=== PATIENT | female | born 1935 | race Caucasian/White ===

== ENCOUNTER 2017-01-13 00:52 | Inpatient (IN) | payer MEDICARE, BC ==
[2017-01-13] MEDS ORDERED: Albuterol/Ipratropium 3.0-0.5 MG/3 ML Neb Soln NEB ONE (00:59)
[2017-01-13] MEDS ORDERED: Furosemide 40 MG/4 ML VIAL IVPUSH ONE (01:00)
[2017-01-13] MEDS ORDERED: methylPREDNISolone Sodium Succinate 125 MG/2 ML SDV IVPUSH ONE (01:13)
--- NOTE | 2017-01-13 01:41 | EDM.PDOC ---
ED HISTORY OF PRESENT ILLNESS - General Chief Complaint: Respiratory Problem Stated Complaint: shortness of breath Time Seen by Provider: 01/13/17 01:10 Source of Information: Reports: Patient, EMS History Limitations: Reports: Respiratory distress - History of Present Illness INITIAL COMMENTS - FREE TEXT/NARRATIVE: Patient presents to ER with complaints of shortness of breath. Contacted EMS with difficulty breathing. On oxygen at 15 lpm per [facility] mask on arrival. At 6 liters, patient's sat was 88%. Was in respiratory distress on arrival with tachypnea and retractions. Albuterol neb given per EMS enroute, ordered a DuoNeb here and Lasix 40 mg IV right after arrival and she is feeling somewhat better after those. Does have audible wheezing yet on my arrival but sats are 97% on 15 liters. She states she can breathe somewhat easier now, "don't feel like I'm going to anymore". Has been ill recently. Saw Dr. Bazan a week ago or so with same symptoms however not as severe. Was given a steroid shot and Cipro. Saw Leslie yesterday and was started on prednisone 40 mg daily and Ceftin. Around 10 o'clock tonight she started having more difficulty breathing and after an hour of resting, did not seem to be getting better. Symptom Onset Date: 01/13/17 Timing/Duration: Reports: Hour(s): Severity: severe Location, General: Reports: chest Worsens with: Reports: Movement Associated Symptoms (General): Reports: cough, shortness of breath, weakness. Denies: chest pain, diaphoresis, fever/chills, nausea/vomiting Treatments SANDBLAST OPERATOR: Reports: Other medication(s) Other Treatments SANDBLAST OPERATOR: ceftin, prednisone - Related Data Allergies/ADRs: Allergies Allergy/AdvReac Type Severity Reaction Status Date / Time No Known Allergies Allergy Verified 01/13/17 01:29 Home Meds: Home Meds Insulin Glarg,Human.Rec.Analog [LantUS Solostar] 40 units SQ DAILY 12/24/15 [ History] Simvastatin [Simvastatin] 1 tab PO BEDTIME 12/24/15 [History] Budesonide/Formoterol [Symbicort 160-4.5 MCG] 1 puff INH BID PRN 10/28/16 [ History] Calcium Carbonate [Calcium] 600 mg PO BID 12/22/16 [History] Magnesium 500 mg PO DAILY 10/28/16 [History] Methylcellulose [Citrucel] 500 mg PO BID 10/28/16 [History] Multivitamin [Daily Multiple Vitamin] 1 each PO DAILY 10/28/16 [History] metFORMIN HCl [Metformin HCl] 500 mg PO DAILY 10/28/16 [History] Cefuroxime [Ceftin] 500 mg PO BID 01/13/17 [History] Insulin Glarg,Human.Rec.Analog [Lantus] 22 units SUBCUT ASDIRECTED 01/13/17 [ History] Lisinopril 5 mg PO DAILY 01/13/17 [History] Nebivolol [Bystolic] 10 mg PO DAILY 01/13/17 [History] predniSONE [Prednisone] 40 mg PO ASDIRECTED 01/13/17 [History] Past Medical History Cardiovascular History: Reports: CAD, High cholesterol, Hypertension Respiratory History: Reports: Asthma Endocrine/Metabolic History: Reports: Diabetes, type II Social & Family History - Tobacco Use Smoking Status *Q: Never Smoker ED ROS GENERAL - Review of Systems Review Of Systems: See Below Constitutional: Reports: weakness, fatigue. Denies: fever, chills HEENT: Denies: Ear discharge, Ear pain, Rhinitis, Sinus problem, Throat pain Respiratory: Reports: shortness of breath, wheezing, cough Cardiovascular: Denies: Chest pain, Edema, Lightheadedness Endocrine: Denies: fatigue GI/Abdominal: Denies: Abdominal pain, Constipation, Diarrhea, Nausea, Vomiting : Reports: no symptoms Musculoskeletal: Reports: no symptoms Skin: Reports: pallor Neurological: Reports: no symptoms Psychiatric: Reports: No symptoms ED EXAM, GENERAL - Physical Exam Exam: See Below Exam Limited By: Respiratory distress General Appearance: alert, WD/WN, moderate distress Ears: normal external exam, normal TMs Nose: normal inspection, clear rhinorrhea Throat/Mouth: Normal inspection, Normal oropharynx Head: normocephalic Neck: normal inspection, supple, non-tender Respiratory/Chest: respiratory distress, decreased breath sounds, wheezing Cardiovascular: normal peripheral pulses, no edema, tachycardia GI/Abdominal: normal bowel sounds, soft, non tender Extremities: normal inspection Neurological: alert, oriented Skin Exam: Warm, Dry Course - Vital Signs Last Recorded V/S: Last Vital Signs Temp 97.7 F 01/13/17 01:00 Pulse 93 01/13/17 01:10 Resp 32 H 01/13/17 01:10 BP 151/106 H 01/13/17 01:00 Pulse Ox 95 01/13/17 01:10 - Orders/Labs/Meds Orders: Active Orders 24 hr Category Date Time Status Patient Status [ADT] Routine ADT 01/13/17 02:30 Active Blood Glucose Check, Bedside [RC] WITHMEALSANDBED Care 01/13/17 02:30 Active Cardiac Monitoring [RC] . DIRECTED Care 01/13/17 01:48 Active Cardiac Monitoring [RC] CONTINUOUS Care 01/13/17 02:30 Active Height and Weight [RC] DAILY Care 01/13/17 02:30 Active Intake and Output [RC] QSHIFT Care 01/13/17 02:30 Active Oxygen Therapy Adult [Oxygen Therapy, ED] [RC] Care 01/13/17 01:01 Active ASDIRECTED Oxygen Therapy [RC] PRN Care 01/13/17 02:30 Active RT Aerosol Therapy [RC] ASDIRECTED Care 01/13/17 00:59 Active RT Aerosol Therapy [RC] ASDIRECTED Care 01/13/17 02:30 Active Up With Assistance [RC] ASDIRECTED Care 01/13/17 02:30 Active VTE/DVT Education [RC] PER UNIT ROUTINE Care 01/13/17 02:30 Active Vital Signs [RC] Q4H Care 01/13/17 02:30 Active Respiratory Care Assess and Treatment [CONS] Routine Cons 01/13/17 02:30 Active 2 Gram Sodium Diet [DIET] Diet 01/13/17 Breakfast Active Consistent Carbohydrate Diet [DIET] Diet 01/13/17 Breakfast Active Ang Chest [CT] Stat Exams 01/13/17 01:42 Taken CXR [Chest 2V] [CR] Stat Exams 01/13/17 01:13 Taken CREATINE KINASE,CK [CHEM] AM Lab 01/13/17 05:11 Ordered LACTATE DEHYDROGENASE,LDH [CHEM] Stat Lab 01/13/17 02:30 Ordered MAGNESIUM [CHEM] AM Lab 01/13/17 05:11 Ordered TROPONIN I [CHEM] AM Lab 01/13/17 05:11 Ordered Acetaminophen [Tylenol] Med 01/13/17 02:30 Ordered 650 mg PO Q4H PRN Albuterol/Ipratropium [DuoNeb 3.0-0.5 MG/3 ML] Med 01/13/17 02:30 Ordered 3 ml NEB Q4H PRN Enoxaparin [Lovenox] Med 01/13/17 02:30 Ordered 40 mg SUBCUT Q24H Insulin Aspart [NovoLOG] Med 01/13/17 02:30 Once 15 unit SUBCUT ONETIME ONE Insulin Aspart [NovoLOG] Med 01/13/17 08:00 Ordered See Protocol SUBCUT WITHMEALSANDBED Levofloxacin/Dextrose 5%-Water [Levaquin in D5W 500 MG/ Med 01/13/17 02:30 Ordered 100 ML] 500 mg Premix Bag 1 bag IV Q24H Ondansetron [Zofran ODT] Med 01/13/17 02:30 Ordered 4 mg PO Q4H PRN Ondansetron [Zofran] Med 01/13/17 02:30 Ordered 4 mg IV Q4H PRN Sodium Chloride 0.9% [Saline Flush] Med 01/13/17 02:30 Ordered 10 ml FLUSH ASDIRECTED PRN Temazepam [Restoril] Med 01/13/17 02:30 Ordered 15 mg PO BEDTIME PRN methylPREDNISolone Sod Succ [Solu-MEDROL] Med 01/13/17 02:30 Ordered 62.5 mg IVPUSH Q12H Saline Lock Insert [OM.PC] Routine Oth 01/13/17 02:30 Ordered EKG 12 Lead [EK] AM Ther 01/13/17 05:11 Ordered Medication Orders Acetaminophen (Tylenol) 650 mg PO Q4H PRN PRN Reason: Pain (Mild 1-3)/fever Albuterol/Ipratropium (Duoneb 3.0-0.5 Mg/3 Ml) 3 ml NEB Q4H PRN PRN Reason: Shortness Of Breath/wheezing Enoxaparin Sodium (Lovenox) 40 mg SUBCUT Q24H [facility] Furosemide (Lasix) 40 mg IVPUSH Q24H [facility] Levofloxacin/Dextrose 500 mg/ (Premix) 100 mls @ 100 mls/hr IV Q24H [facility] Insulin Aspart (Novolog) 0 unit SUBCUT WITHMEALSANDBED [facility] PRN Reason: Protocol Insulin Aspart (Novolog) 15 unit SUBCUT ONETIME ONE Stop: 01/13/17 02:31 Lisinopril (Prinivil) 5 mg PO DAILY [facility] Methylprednisolone Sodium Succinate (Solu-Medrol) 62.5 mg IVPUSH Q12H [facility] Multivitamins/Minerals/Vitamin C (Tab-A-Jimi) tab PO DAILY [facility] Non-Formulary Medication (Budesonide/Formoterol) 1 puff INH BID PRN PRN Reason: Shortness of Breath Non-Formulary Medication (Insulin Glarg,Human.Rec.Analog [Lantus Solostar]) 40 units SQ DAILY [facility] Non-Formulary Medication (Insulin Glarg,Human.Rec.Analog) 22 units SUBCUT ASDIRECTED [facility] Non-Formulary Medication (Magnesium [Magnesium]) 500 mg PO DAILY [facility] Non-Formulary Medication (Nebivolol [Bystolic]) 10 mg PO DAILY [facility] Non-Formulary Medication (Simvastatin [Simvastatin]) 1 tab PO BEDTIME [facility] Ondansetron HCl (Zofran Odt) 4 mg PO Q4H PRN PRN Reason: nausea, able to take PO Ondansetron HCl (Zofran) 4 mg IV Q4H PRN PRN Reason: Nausea/Vomiting Sodium Chloride (Saline Flush) 10 ml FLUSH ASDIRECTED PRN PRN Reason: Keep Vein Open Temazepam (Restoril) 15 mg PO BEDTIME PRN PRN Reason: Sleep Labs: Laboratory Tests 01/13/17 01/13/17 01/13/17 Range/Units 01:15 01:19 01:19 WBC 8.9 (5.0-10.0) 10^3/uL RBC 5.00 (4.00-5.50) 10^6/uL Hgb 13.7 (12.0-16.0) g/dL Hct 42.0 (37.0-47.0) % MCV 84.0 (82.0-94.0) fL MCH 27.4 (27.0-32.0) pg MCHC 32.6 L (33.0-38.0) g/dL RDW Coeff of Carter 15.9 H (11.0-15.0) % Plt Count 247 (150-400) 10^3/uL Neut % (Auto) 82.3 (35-85) % Lymph % (Auto) 15.0 (10-55) % Cannon % (Auto) 2.6 (0-16) % Eos % (Auto) 0 (0-5) % Baso % (Auto) 0.1 (0-3) % Neut # 7.28 H (1.80-7.00) 10^3/uL Lymph # 1.33 (1.00-4.80) 10^3/uL Cannon # 0.23 (0.00-0.80) 10^3/uL Eos # 0.00 (0.00-0.45) 10^3/uL Baso # 0.01 10^3/uL D-Dimer, Quantitative 1.22 H (0.00-0.50) Sodium 140 (136-145) mEq/L Potassium 4.8 (3.5-5.0) mEq/L Chloride 103 (98-106) mEq/L Carbon Dioxide 25 (21-32) mmol/L BUN 31 H (7-18) mg/dL Creatinine 1.2 H (0.6-1.0) mg/dL Est Cr Clr Drug Dosing 29.08 mL/min Estimated GFR (MDRD) 43 L (>=60) mL/min Glucose 464 H* D (75-99) mg/dL Calcium 9.3 (8.4-10.1) mg/dL Total Bilirubin 1.0 (0.0-1.0) mg/dL AST 22 (15-37) U/L ALT 25 (12-78) U/L Alkaline Phosphatase 82 (46-116) U/L Lactate Dehydrogenase 225 H (100-190) U/L Creatine Kinase 110 (21-215) U/L Troponin I 0.358 H (0.00-0.06) ng/mL C-Reactive Protein < 0.2 L (0.2-0.8) mg/dL Xsm-L-Lwbebphcgky Pept (0-1000) pg/nL Total Protein 7.7 (6.4-8.2) g/dL Albumin 3.4 (3.4-5.0) g/dL 01/13/17 Range/Units 01:20 WBC (5.0-10.0) 10^3/uL RBC (4.00-5.50) 10^6/uL Hgb (12.0-16.0) g/dL Hct (37.0-47.0) % MCV (82.0-94.0) fL MCH (27.0-32.0) pg MCHC (33.0-38.0) g/dL RDW Coeff of Carter (11.0-15.0) % Plt Count (150-400) 10^3/uL Neut % (Auto) (35-85) % Lymph % (Auto) (10-55) % Cannon % (Auto) (0-16) % Eos % (Auto) (0-5) % Baso % (Auto) (0-3) % Neut # (1.80-7.00) 10^3/uL Lymph # (1.00-4.80) 10^3/uL Cannon # (0.00-0.80) 10^3/uL Eos # (0.00-0.45) 10^3/uL Baso # 10^3/uL D-Dimer, Quantitative (0.00-0.50) Sodium (136-145) mEq/L Potassium (3.5-5.0) mEq/L Chloride (98-106) mEq/L Carbon Dioxide (21-32) mmol/L BUN (7-18) mg/dL Creatinine (0.6-1.0) mg/dL Est Cr Clr Drug Dosing mL/min Estimated GFR (MDRD) (>=60) mL/min Glucose (75-99) mg/dL Calcium (8.4-10.1) mg/dL Total Bilirubin (0.0-1.0) mg/dL AST (15-37) U/L ALT (12-78) U/L Alkaline Phosphatase (46-116) U/L Lactate Dehydrogenase (100-190) U/L Creatine Kinase (21-215) U/L Troponin I (0.00-0.06) ng/mL C-Reactive Protein (0.2-0.8) mg/dL Iog-A-Cxtttxpszku Pept 3915 H (0-1000) pg/nL Total Protein (6.4-8.2) g/dL Albumin (3.4-5.0) g/dL Meds: Medications Generic Name Dose Route Start Last Admin Trade Name Freq PRN Reason Stop Dose Admin Acetaminophen 650 mg 01/13/17 02:30 Tylenol PO Q4H PRN Pain (Mild 1-3)/fever Albuterol/Ipratropium 3 ml 01/13/17 02:30 Duoneb 3.0-0.5 Mg/3 Ml NEB Q4H PRN Shortness Of Breath/wheezing Enoxaparin Sodium 40 mg 01/13/17 02:30 Lovenox SUBCUT Q24H [facility] Furosemide 40 mg 01/13/17 08:00 Lasix IVPUSH Q24H [facility] Levofloxacin/Dextrose 500 mg/ 100 mls @ 100 mls/hr 01/13/17 02:30 Premix IV Q24H [facility] Insulin Aspart 0 unit 01/13/17 08:00 Novolog SUBCUT WITHMEALSANDBED [facility] Protocol Insulin Aspart 15 unit 01/13/17 02:30 Novolog SUBCUT 01/13/17 02:31 ONETIME ONE Lisinopril 5 mg 01/13/17 08:00 Prinivil PO DAILY [facility] Methylprednisolone Sodium Succinate 62.5 mg 01/13/17 02:30 Solu-Medrol IVPUSH Q12H [facility] Multivitamins/Minerals/Vitamin C tab 01/13/17 08:00 Tab-A-Jimi PO DAILY [facility] Non-Formulary Medication 1 puff 01/13/17 02:30 Budesonide/Formoterol INH BID PRN Shortness of Breath Non-Formulary Medication 40 units 01/13/17 08:00 Insulin Glarg,Human.Rec.Analog [Lantus Solostar] SQ DAILY [facility] Non-Formulary Medication 22 units 01/13/17 02:30 Insulin Glarg,Human.Rec.Analog SUBCUT ASDIRECTED [facility] Non-Formulary Medication 500 mg 01/13/17 08:00 Magnesium [Magnesium] PO DAILY [facility] Non-Formulary Medication 10 mg 01/13/17 08:00 Nebivolol [Bystolic] PO DAILY [facility] Non-Formulary Medication 1 tab 01/13/17 20:00 Simvastatin [Simvastatin] PO BEDTIME [facility] Ondansetron HCl 4 mg 01/13/17 02:30 Zofran Odt PO Q4H PRN nausea, able to take PO Ondansetron HCl 4 mg 01/13/17 02:30 Zofran IV Q4H PRN Nausea/Vomiting Sodium Chloride 10 ml 01/13/17 02:30 Saline Flush FLUSH ASDIRECTED PRN Keep Vein Open Temazepam 15 mg 01/13/17 02:30 Restoril PO BEDTIME PRN Sleep Discontinued Medications Generic Name Dose Route Start Last Admin Trade Name Freq PRN Reason Stop Dose Admin Albuterol/Ipratropium 3 ml 01/13/17 00:59 01/13/17 01:06 Duoneb 3.0-0.5 Mg/3 Ml NEB 01/13/17 01:00 3 ml ONETIME ONE Administration Furosemide 40 mg 01/13/17 01:00 01/13/17 01:07 Lasix IVPUSH 01/13/17 01:01 40 mg Q24H ONE Administration Iopamidol 100 ml 01/13/17 01:50 01/13/17 02:14 Isovue-370 (76%) IVPUSH 01/13/17 01:51 100 ml ONETIME ONE Administration Methylprednisolone Sodium Succinate 125 mg 01/13/17 01:13 01/13/17 01:19 Solu-Medrol IVPUSH 01/13/17 01:14 125 mg Q24H ONE Administration - Re-Assessments/Exams Free Text/Narrative Re-Assessment/Exam: 01/13/17 02:30 Patient has had good recovery. Breathing much easier. Noted 1200 ml of urine in catheter bag. CT completed due to shortness of breath and elevated d-dimer. Patient's oxygen sats 95% on 3 liters. Will keep monitoring. Admit to Dr. Bazan. 01/13/17 02:40 Departure - Departure Time of Disposition: 02:32 Disposition: Admitted As Inpatient 66 Condition: fair Clinical Impression: Respiratory distress Congestive heart failure Qualifiers: Congestive heart failure chronicity: acute - Problem List & Annotations (1) Comfort measures only status SNOMED Code(s): 41588509415798 Code(s): Z51.5 - ENCOUNTER FOR PALLIATIVE CARE Status: Acute Priority: High Current Visit: Yes (2) Congestive heart failure SNOMED Code(s): 24387194 Code(s): I50.9 - HEART FAILURE, UNSPECIFIED Status: Acute Priority: High Current Visit: Yes Qualifiers: Congestive heart failure chronicity: acute (3) Respiratory distress SNOMED Code(s): 767987675 Code(s): R06.00 - DYSPNEA, UNSPECIFIED Status: Acute Priority: High Current Visit: Yes - Problem List Review Problem List Initiated/Reviewed/Updated: Yes - My Orders Last 24 Hours: My Active Orders 01/13/17 00:59 RT Aerosol Therapy [RC] ASDIRECTED 01/13/17 01:01 Oxygen Therapy Adult [Oxygen Therapy, ED] [RC] ASDIRECTED 01/13/17 01:13 CXR [Chest 2V] [CR] Stat 01/13/17 01:42 Ang Chest [CT] Stat 01/13/17 01:48 Cardiac Monitoring [RC] . DIRECTED 01/13/17 02:30 Patient Status [ADT] Routine Blood Glucose Check, Bedside [RC] WITHMEALSANDBED Cardiac Monitoring [RC] CONTINUOUS Height and Weight [RC] DAILY Intake and Output [RC] QSHIFT Oxygen Therapy [RC] PRN RT Aerosol Therapy [RC] ASDIRECTED Up With Assistance [RC] ASDIRECTED VTE/DVT Education [RC] PER UNIT ROUTINE Vital Signs [RC] Q4H Respiratory Care Assess and Treatment [CONS] Routine LACTATE DEHYDROGENASE,LDH [CHEM] Stat Acetaminophen [Tylenol] 650 mg PO Q4H PRN Albuterol/Ipratropium [DuoNeb 3.0-0.5 MG/3 ML] 3 ml NEB Q4H PRN Enoxaparin [Lovenox] 40 mg SUBCUT Q24H Insulin Aspart [NovoLOG] 15 unit SUBCUT ONETIME ONE Levofloxacin/Dextrose 5%-Water [Levaquin in D5W 500 MG/100 ML] 500 mg Premix Bag 1 bag IV Q24H Ondansetron [Zofran ODT] 4 mg PO Q4H PRN Ondansetron [Zofran] 4 mg IV Q4H PRN Sodium Chloride 0.9% [Saline Flush] 10 ml FLUSH ASDIRECTED PRN Temazepam [Restoril] 15 mg PO BEDTIME PRN methylPREDNISolone Sod Succ [Solu-MEDROL] 62.5 mg IVPUSH Q12H Saline Lock Insert [OM.PC] Routine 01/13/17 05:11 CREATINE KINASE,CK [CHEM] AM MAGNESIUM [CHEM] AM TROPONIN I [CHEM] AM EKG 12 Lead [EK] AM 01/13/17 08:00 Insulin Aspart [NovoLOG] See Protocol SUBCUT WITHMEALSANDBED 01/13/17 Breakfast 2 Gram Sodium Diet [DIET] Consistent Carbohydrate Diet [DIET] - Assessment/Plan Admission H&P: Please use this note as an admission H&P Last 24 Hours: My Active Orders 01/13/17 00:59 RT Aerosol Therapy [RC] ASDIRECTED 01/13/17 01:01 Oxygen Therapy Adult [Oxygen Therapy, ED] [RC] ASDIRECTED 01/13/17 01:13 CXR [Chest 2V] [CR] Stat 01/13/17 01:42 Ang Chest [CT] Stat 01/13/17 01:48 Cardiac Monitoring [RC] . DIRECTED 01/13/17 02:30 Patient Status [ADT] Routine Blood Glucose Check, Bedside [RC] WITHMEALSANDBED Cardiac Monitoring [RC] CONTINUOUS Height and Weight [RC] DAILY Intake and Output [RC] QSHIFT Oxygen Therapy [RC] PRN RT Aerosol Therapy [RC] ASDIRECTED Up With Assistance [RC] ASDIRECTED VTE/DVT Education [RC] PER UNIT ROUTINE Vital Signs [RC] Q4H Respiratory Care Assess and Treatment [CONS] Routine LACTATE DEHYDROGENASE,LDH [CHEM] Stat Acetaminophen [Tylenol] 650 mg PO Q4H PRN Albuterol/Ipratropium [DuoNeb 3.0-0.5 MG/3 ML] 3 ml NEB Q4H PRN Enoxaparin [Lovenox] 40 mg SUBCUT Q24H Insulin Aspart [NovoLOG] 15 unit SUBCUT ONETIME ONE Levofloxacin/Dextrose 5%-Water [Levaquin in D5W 500 MG/100 ML] 500 mg Premix Bag 1 bag IV Q24H Ondansetron [Zofran ODT] 4 mg PO Q4H PRN Ondansetron [Zofran] 4 mg IV Q4H PRN Sodium Chloride 0.9% [Saline Flush] 10 ml FLUSH ASDIRECTED PRN Temazepam [Restoril] 15 mg PO BEDTIME PRN methylPREDNISolone Sod Succ [Solu-MEDROL] 62.5 mg IVPUSH Q12H Saline Lock Insert [OM.PC] Routine 01/13/17 05:11 CREATINE KINASE,CK [CHEM] AM MAGNESIUM [CHEM] AM TROPONIN I [CHEM] AM EKG 12 Lead [EK] AM 01/13/17 08:00 Insulin Aspart [NovoLOG] See Protocol SUBCUT WITHMEALSANDBED 01/13/17 Breakfast 2 Gram Sodium Diet [DIET] Consistent Carbohydrate Diet [DIET] Assessment:: CHF- acute, new onset Respiratory Distress Comfort Measures Plan: Admit to Dr. Bazan. Will continue with IV Lasix. Nebs. Levaquin. Obtain echo. Reevaluate serial cardiac enzymes. Dr. Bazan will follow during stay. Dr. Bazan informed of admission.
[2017-01-13 01:43] LABS: CHLORIDE,CL 103 mEq/L (98-106); SODIUM,NA 140 mEq/L (136-145)
[2017-01-13] MEDS ORDERED: Iopamidol 755 Mg/ML 100 ML Bottle IVPUSH ONE (01:50)
[2017-01-13] MEDS ORDERED: Acetaminophen 325 MG Tab PO PRN (02:30)
[2017-01-13] MEDS ORDERED: Non-Formulary Medication 1 Each (Budesonide/Formoterol 1 PUFF) INH PRN (02:30)
[2017-01-13] MEDS ORDERED: Temazepam 15 MG Cap PO PRN (02:30)
[2017-01-13] MEDS ORDERED: INSULIN GLARG HUMAN REC ANALOG SUBCUT SCH (02:30)
[2017-01-13] MEDS ORDERED: methylPREDNISolone Sodium Succinate 125 MG/2 ML SDV IVPUSH SCH (02:30)
[2017-01-13] MEDS ORDERED: Sodium Chloride 0.9% 10 ML Syringe FLUSH PRN (02:30)
[2017-01-13] MEDS ORDERED: Ondansetron 4 MG Tab.DIS PO PRN (02:30)
[2017-01-13] MEDS ORDERED: Levofloxacin/Dextrose 5%-Water 500 MG in Premix Bag 1 BAG IV SCH (02:30)
[2017-01-13] MEDS ORDERED: Enoxaparin 40 MG/0.4 ML Syringe SUBCUT SCH (02:30)
[2017-01-13] MEDS ORDERED: Ondansetron 4 MG/2 ML SDV IV PRN (02:30)
[2017-01-13] MEDS ORDERED: Insulin Aspart 100 Units/ML 3 ML Pen SUBCUT ONE (02:30)
[2017-01-13] MEDS ORDERED: Albuterol/Ipratropium 3.0-0.5 MG/3 ML Neb Soln NEB PRN (02:30)
[2017-01-13] MEDS ORDERED: Enoxaparin 30 MG/0.3 ML Syringe SUBCUT SCH (03:00)
[2017-01-13] MEDS ORDERED: Insulin Detemir 100 Units/ML 3 ML Pen SUBCUT SCH ×3 (03:00→20:00)
[2017-01-13 07:40] VITALS: BP 129/63
[2017-01-13] MEDS ORDERED: Lisinopril 10 MG Tab PO SCH (08:00)
[2017-01-13] MEDS ORDERED: Insulin Aspart 100 Units/ML 3 ML Pen SUBCUT SCH (08:00)
[2017-01-13] MEDS ORDERED: NEBIVOLOL 10 MG PO SCH (08:00)
[2017-01-13] MEDS ORDERED: Multivitamin Tab PO SCH (08:00)
[2017-01-13] MEDS ORDERED: Furosemide 40 MG/4 ML VIAL IVPUSH SCH (08:00)
[2017-01-13] MEDS ORDERED: Formoterol/Mometasone 200-5 MCG 8.8 GM Inhaler IH SCH ×2 (09:00)
[2017-01-13] MEDS ORDERED: Albuterol/Ipratropium 3.0-0.5 MG/3 ML Neb Soln NEB SCH (09:00)
[2017-01-13] MEDS ORDERED: Enoxaparin 80 MG/0.8 ML Syringe SUBCUT ONE (09:19)
[2017-01-13] MEDS ORDERED: SIMVASTATIN PO SCH (20:00)
[2017-01-13] MEDS ORDERED: Simvastatin 40 MG Tab PO SCH (20:00)
--- NOTE | 2017-01-14 07:41 | PCM.DCSUM1 ---
Discharge Summary - Hospital Course Free Text/Narrative:: Patient presented to the ER with complaints of severe shortness of breath. Was in considerable respiratory distress on EMS arrival to her home as well as to our ER. She had been treated recently for bronchitis. Had a course of Cipro and a shot of Depo Medrol a week ago by Dr. Bazan. Presented back to [facility] on Tuesday with ongoing symptoms. Was switched to Ceftin and oral prednisone. On arrival to the ED, she had been experiencing increasing shortness of breath for 3 hours. Lungs sounds very moist and wheezy. Was given IV Solu Medrol, DuoNeb and IV Lasix. She did slowly improve over 30 minutes. Diuresed 1200 ml within 30 minutes after catheter placed. Much improvement in her breathing. She did have an elevated ProBNP of 3915. D-Dimer was elevated at 1.22. Troponin indeterminate at 0.358. Chest xray showed venous congestion. EKG shows possible inferior lateral ischemia. CT scan to rule out PE was negative however did show pulmonary edema and pleural effusions. She had recently seen Dr. Archuleta in [place]. Had testing done there as well as stress test last October that didn't show acute evidence of heart concerns. He felt her ongoing shortness of breath could be related to pulmonary concerns so set her up next week for further pulmonary function testing. She was also taken off her Atenolol and started on Bystolic and Lisinopril. - Discharge Data Discharge Date: 01/13/17 Discharge Disposition: DC/Tfer to Acute Hospital 02 Condition: Stable - Discharge Diagnosis/Problem(s) (1) Comfort measures only status SNOMED Code(s): 69522807213971 ICD Code: Z51.5 - ENCOUNTER FOR PALLIATIVE CARE Status: Acute Priority: High (2) Congestive heart failure SNOMED Code(s): 68123640 ICD Code: I50.9 - HEART FAILURE, UNSPECIFIED Status: Acute Priority: High Qualifiers: Congestive heart failure chronicity: acute (3) Respiratory distress SNOMED Code(s): 383736259 ICD Code: R06.00 - DYSPNEA, UNSPECIFIED Status: Acute Priority: High (4) Acute [place] SNOMED Code(s): 58897529 ICD Code: I21.3 - ST ELEVATION (STEMI) MYOCARDIAL INFARCTION OF [facility] SITE Status: Acute Priority: High Qualifiers: Myocardial infarction ST status: non-ST elevation myocardial infarction Qualified Code(s): I21.4 - Non-ST elevation (NSTEMI) myocardial infarction - Patient Summary/Data Complications: elevated troponin Hospital Course: Patient did improve significantly with IV Lasix and is stable upon discharge. She did show acute changes of her troponin after 4 hours with repeat testing. Troponin now 7.44. EKG remains same. Did contact Dr. Dave at [facility] after consulting with DR. Bazan who felt she will need an angiogram. He did recommend therapeutic dose of Lovenox so additional Lovenox given this am. See MAR. Dr. Dave did agree to accept the patient in transfer for further cardiology work up. Patient agrees with plan. - Patient Instructions Other/Special Instructions: Transfer to Dr. Dave per ALS to [facility]. Keep NPO - Discharge Plan Home Medications: Home Meds Insulin Glarg,Human.Rec.Analog [LantUS Solostar] 40 units SQ DAILY 12/24/15 [ History] Simvastatin [Simvastatin] 1 tab PO BEDTIME 12/24/15 [History] Budesonide/Formoterol [Symbicort 160-4.5 MCG] 1 puff INH BID PRN 10/28/16 [ History] Calcium Carbonate [Calcium] 600 mg PO BID 10/28/16 [History] Magnesium 500 mg PO DAILY 10/28/16 [History] Methylcellulose [Citrucel] 500 mg PO BID 10/28/16 [History] Multivitamin [Daily Multiple Vitamin] 1 each PO DAILY 10/28/16 [History] metFORMIN HCl [Metformin HCl] 500 mg PO DAILY 10/28/16 [History] Cefuroxime [Ceftin] 500 mg PO BID 01/13/17 [History] Insulin Glarg,Human.Rec.Analog [Lantus] 22 units SUBCUT ASDIRECTED 01/13/17 [ History] Lisinopril 5 mg PO DAILY 01/13/17 [History] Nebivolol [Bystolic] 10 mg PO DAILY 01/13/17 [History] predniSONE [Prednisone] 40 mg PO ASDIRECTED 01/13/17 [History] Forms: ED Department Discharge Referrals: Lee Bazan MD [Primary Care Provider] - - Discharge Summary/Plan Comment DC Time >30 min.: Yes Discharge Summary/Plan Comment: Transfer to Dr. Dave at [facility], transfer per ALS. - General Info Date of Service: 01/13/17 Admission Dx/Problem (Free Text: CHF Pulmonary Edema Functional Status: Reports: pain controlled, tolerating diet. Denies: ambulating - Review of Systems General: Reports: weakness, fatigue. Denies: fever HEENT: Denies: headaches, sinus congestion, sore throat, rhinitis Pulmonary: Reports: shortness of breath. Denies: cough, wheezing Cardiovascular: Denies: chest pain, edema, lightheadedness Gastrointestinal: Denies: Abdominal pain, Constipation, Diarrhea, Nausea, Vomiting Genitourinary: Reports: no symptoms Musculoskeletal: Reports: no symptoms Skin: Reports: no symptoms Neurological: Reports: no symptoms Psychiatric: Reports: no symptoms - Patient Data Vitals - Most Recent: Last Vital Signs Temp 97.3 F 01/13/17 07:42 Pulse 66 01/13/17 07:42 Resp 18 01/13/17 07:42 BP 129/63 01/13/17 07:42 Pulse Ox 93 L 01/13/17 07:42 Weight - Most Recent: 172 lb 12.8 oz Lab Results - Last 24 hrs: Laboratory Results - last 24 hr 01/13/17 Range/Units 07:47 Magnesium 1.9 (1.8-2.4) mg/dL Lactate Dehydrogenase 277 H (100-190) U/L Creatine Kinase 326 H (21-215) U/L Troponin I 7.442 H* (0.00-0.06) ng/mL Med Orders - Current: Current Medications Discontinued Medications Acetaminophen (Tylenol) 650 mg PO Q4H PRN PRN Reason: Pain (Mild 1-3)/fever Albuterol/Ipratropium (Duoneb 3.0-0.5 Mg/3 Ml) 3 ml NEB ONETIME ONE Stop: 01/13/17 01:00 Last Admin: 01/13/17 01:06 Dose: 3 ml Albuterol/Ipratropium (Duoneb 3.0-0.5 Mg/3 Ml) 3 ml NEB Q4H PRN PRN Reason: Shortness Of Breath/wheezing Albuterol/Ipratropium (Duoneb 3.0-0.5 Mg/3 Ml) 3 ml NEB QIDRT [facility] Last Admin: 01/13/17 09:14 Dose: 3 ml Enoxaparin Sodium (Lovenox) 30 mg SUBCUT Q24H [facility] Last Admin: 01/13/17 03:03 Dose: 30 mg Enoxaparin Sodium (Lovenox) 30 mg SUBCUT Q24H [facility] Enoxaparin Sodium (Lovenox) 80 mg SUBCUT NOW ONE Stop: 01/13/17 09:20 Last Admin: 01/13/17 09:24 Dose: 80 mg Furosemide (Lasix) 40 mg IVPUSH Q24H ONE Stop: 01/13/17 01:01 Last Admin: 01/13/17 01:07 Dose: 40 mg Furosemide (Lasix) 40 mg IVPUSH Q24H [facility] Last Admin: 01/13/17 07:35 Dose: 40 mg Levofloxacin/Dextrose 500 mg/ (Premix) 100 mls @ 100 mls/hr IV Q24H [facility] Last Admin: 01/13/17 03:04 Dose: 100 mls/hr Levofloxacin/Dextrose 250 mg/ (Premix) 50 mls @ 50 mls/hr IV Q24H [facility] Insulin Aspart (Novolog) 0 unit SUBCUT WITHMEALSANDBED [facility] PRN Reason: Protocol Last Admin: 01/13/17 07:39 Dose: 12 unit Insulin Aspart (Novolog) 15 unit SUBCUT ONETIME ONE Stop: 01/13/17 02:31 Last Admin: 01/13/17 03:00 Dose: 15 units Insulin Detemir (Levemir) 40 unit SUBCUT DAILY [facility] Last Admin: 01/13/17 07:38 Dose: 40 unit Insulin Detemir (Levemir) 22 unit SUBCUT BEDTIME [facility] Last Admin: 01/13/17 02:56 Dose: Not Given Insulin Detemir (Levemir) 22 unit SUBCUT BEDTIME [facility] Iopamidol (Isovue-370 (76%)) 100 ml IVPUSH ONETIME ONE Stop: 01/13/17 01:51 Last Admin: 01/13/17 02:14 Dose: 100 ml Lisinopril (Prinivil) 5 mg PO DAILY [facility] Last Admin: 01/13/17 07:37 Dose: 5 mg Magnesium Oxide (Magnesium Oxide) 500 mg PO DAILY [facility] Last Admin: 01/13/17 07:37 Dose: 500 mg Methylprednisolone Sodium Succinate (Solu-Medrol) 125 mg IVPUSH Q24H ONE Stop: 01/13/17 01:14 Last Admin: 01/13/17 01:19 Dose: 125 mg Methylprednisolone Sodium Succinate (Solu-Medrol) 62.5 mg IVPUSH Q12H [facility] Last Admin: 01/13/17 04:44 Dose: Not Given Mometasone Furoate/Formoterol Fumar (Dulera 200-5 Mcg) 2 puff IH BIDRT [facility] Last Admin: 01/13/17 09:15 Dose: 2 puff Multivitamins/Minerals/Vitamin C (Tab-A-Jimi) 1 tab PO DAILY [facility] Last Admin: 01/13/17 07:37 Dose: 1 tab Non-Formulary Medication (Nebivolol [Bystolic]) 10 mg PO DAILY [facility] Non-Formulary Medication (Simvastatin [Simvastatin]) 1 tab PO BEDTIME [facility] Ondansetron HCl (Zofran Odt) 4 mg PO Q4H PRN PRN Reason: nausea, able to take PO Ondansetron HCl (Zofran) 4 mg IV Q4H PRN PRN Reason: Nausea/Vomiting Simvastatin (Zocor) 80 mg PO BEDTIME [facility] Sodium Chloride (Saline Flush) 10 ml FLUSH ASDIRECTED PRN PRN Reason: Keep Vein Open Temazepam (Restoril) 15 mg PO BEDTIME PRN PRN Reason: Sleep - Exam Quality Assessment: Reports: supplemental oxygen General: Reports: alert, oriented HEENT: Reports: Mucous membr. moist/pink Neck: Reports: supple Lungs: Reports: Decreased breath sounds, Wheezing Cardiovascular: Reports: regular rate, regular rhythm Abdomen: Reports: bowel sounds present, soft, no tenderness Extremities: Reports: no edema Neurological: Reports: no new focal deficit *Q Meaningful Use (DIS) - VTE *Q VTE Criteria *Q: - Stroke *Q Stroke Criteria *Q: - AMI *Q AMI Criteria *Q:
[2017-01-14] MEDS ORDERED: Enoxaparin 30 MG/0.3 ML Syringe SUBCUT SCH (08:00)
[2017-01-14] MEDS ORDERED: Levofloxacin/Dextrose 5%-Water 250 MG in Premix Bag 1 BAG IV SCH (08:00)
== END 2017-01-13 09:30 | DRG 282 ==
LOC: CC.ED 00:52 → CC.MS 01:48 → UNDOADMIN 02:21 → CC.MS 02:21 → UNDOADMIN 02:30 → CC.MS 02:30 → UNDODISIN 09:30
PROVIDERS: ADMIT Physician Assistant Medical; ATTEND General Practice
DX: I21.4 Non-ST elevation (NSTEMI) myocardial infarction (principal); I50.9 Heart failure, unspecified; I11.0 Hypertensive heart disease with heart failure; E11.9 Type 2 diabetes mellitus without complications; Z51.5 Encounter for palliative care; Z66 Do not resuscitate; R06.00 Dyspnea, unspecified; Z79.4 Long term (current) use of insulin; Z79.84 Long term (current) use of oral hypoglycemic drugs; R06.02 Shortness of breath; R79.1 Abnormal coagulation profile; Z79.52 Long term (current) use of systemic steroids
CPT/HCPCS: 36415; 71020; 71275; 80053; 82550; 83615; 83880; 84484; 85025; 85379; 86140; 93005; 96374; 96375; 99285; J1940; J2930; Q9967 ×2; 51702; 82962; 83735; 93010; A9270-GY; J1650; J1815-GY; J1956

== ENCOUNTER 2017-02-01 10:30 | Inpatient (IN) | payer MEDICARE, BC ==
[~2017-02-01 10:30] MED LIST: Enoxaparin 30 MG/0.3 ML Syringe SUBCUT SCH
[2017-02-01 11:24] LABS: CHLORIDE,CL 102 mEq/L (98-106); SODIUM,NA 144 mEq/L (136-145)
--- NOTE | 2017-02-01 11:50 | EDM.PDOC ---
ED HPI GENERAL MEDICAL PROBLEM - General Chief Complaint: General Stated Complaint: LEFT ARM NUMB Time Seen by Provider: 02/01/17 10:41 Source of Information: Reports: Patient History Limitations: Reports: No limitations - History of Present Illness INITIAL COMMENTS - FREE TEXT/NARRATIVE: Patient presents to ER today with complaints of left arm numbness and tingling. Patient states was in [place] this am when noted the numbness. She is able to move her arm fine but "doesn't feel quite right". She was transferred out about a month ago after presenting with pulmonary edema and ultimately found to have a IA. She was in the hospital in [place] for 4 days, had an angiogram, which she states did not find any blockages or damage. Was sent home on Eliquis but isn't taking it due to the cost. Patient denies any dizziness, chest pain, shortness of breath or gait disturbance. Duration: Hour(s): Location: Reports: upper extremity, left Quality: Reports: Other (numbness/tingling in left arm) Severity: mild Associated Symptoms: Reports: no other symptoms - Related Data Allergies Allergy/AdvReac Type Severity Reaction Status Date / Time No Known Allergies Allergy Verified 02/01/17 10:41 Home Meds: Home Meds Insulin Glarg,Human.Rec.Analog [LantUS Solostar] 40 units SQ DAILY 12/24/15 [ History] Simvastatin [Simvastatin] 80 mg PO BEDTIME 12/24/15 [History] Budesonide/Formoterol [Symbicort 160-4.5 MCG] 1 puff INH BID PRN 10/28/16 [ History] Calcium Carbonate [Calcium] 600 mg PO BID 10/28/16 [History] Magnesium 500 mg PO BEDTIME 10/28/16 [History] Methylcellulose [Citrucel] 500 mg PO BID 10/28/16 [History] Multivitamin [Daily Multiple Vitamin] 1 each PO DAILY 10/28/16 [History] metFORMIN HCl [Metformin HCl] 500 mg PO DAILY 10/28/16 [History] Insulin Glarg,Human.Rec.Analog [Lantus] 22 units SUBCUT BEDTIME 01/13/17 [ History] Nebivolol [Bystolic] 5 mg PO DAILY 01/26/17 [History] Aspirin 325 mg PO DAILY 02/01/17 [History] Cholecalciferol (Vitamin D3) [Vitamin D3] 1,000 unit PO DAILY 02/01/17 [History] Furosemide [Furosemide] 40 mg PO DAILY 02/01/17 [History] Past Medical History HEENT History: Reports: Cataract Cardiovascular History: Reports: CAD, High cholesterol, Hypertension Respiratory History: Reports: Asthma Musculoskeletal History: Reports: Fracture Endocrine/Metabolic History: Reports: Diabetes, type II - Past Surgical History HEENT Surgical History: Reports: Cataract surgery GI Surgical History: Reports: Appendectomy Social & Family History - Tobacco Use Smoking Status *Q: Never Smoker Second Hand Smoke Exposure: No - Caffeine Use Caffeine Use: Reports: Tea - Recreational Drug Use Recreational Drug Use: No ED ROS GENERAL - Review of Systems Review Of Systems: See Below Constitutional: Reports: weakness. Denies: fever, chills, decreased appetite HEENT: Denies: Ear pain, Nose pain, Rhinitis, Sinus problem, Throat swelling, Vertigo, Vision change Respiratory: Reports: Shortness of Breath (since IA). Denies: Wheezing, Cough Cardiovascular: Denies: Chest pain, Edema, Lightheadedness Endocrine: Denies: fatigue GI/Abdominal: Denies: Abdominal pain, Constipation, Diarrhea, Nausea, Vomiting : Reports: no symptoms Musculoskeletal: Reports: no symptoms Neurological: Reports: Numbness, Tingling, Weakness. Denies: Confusion, Difficulty Walking Psychiatric: Reports: No symptoms ED EXAM, GENERAL - Physical Exam Exam: See Below Exam Limited By: No limitations General Appearance: alert, WD/WN, no apparent distress Eye Exam: bilateral eye: EOMI Ears: normal TMs Nose: normal inspection Throat/Mouth: Normal inspection, Normal oropharynx Head: normocephalic Neck: normal inspection, supple, non-tender, full range of motion Respiratory/Chest: no respiratory distress, lungs clear, normal breath sounds Cardiovascular: irregularly irregular GI/Abdominal: normal bowel sounds, soft, non tender Extremities: normal inspection, normal range of motion Neurological: alert, oriented, CN II-XII intact, normal cognition, normal gait, normal reflexes, no motor/sensory deficits, other (negative pronator drift) Skin Exam: Warm, Dry Course - Vital Signs Last Recorded V/S: Last Vital Signs Temp 98.4 F 02/01/17 11:00 Pulse 83 02/01/17 11:00 Resp 18 02/01/17 11:00 BP 118/72 02/01/17 11:00 Pulse Ox 92 L 02/01/17 11:00 - Orders/Labs/Meds Orders: Active Orders 24 hr Category Date Time Status Patient Status [ADT] Routine ADT 02/01/17 12:00 Active Cardiac Monitoring [RC] . DIRECTED Care 02/01/17 11:42 Active Cardiac Monitoring [RC] CONTINUOUS Care 02/01/17 12:00 Inactive Neuro Check [RC] Q4HR Care 02/01/17 12:00 Active Oxygen Therapy [RC] PRN Care 02/01/17 12:00 Active Up ad Celeste [RC] ASDIRECTED Care 02/01/17 10:46 Active VTE/DVT Education [RC] PER UNIT ROUTINE Care 02/01/17 12:00 Active Vital Signs [RC] Q4H Care 02/01/17 12:00 Active 2 Gram Sodium Diet [DIET] Diet 02/01/17 Lunch Active Cervical Spine wo Cont [CT] Stat Exams 02/01/17 10:46 Taken Head wo Cont [CT] Stat Exams 02/01/17 10:46 Taken Acetaminophen [Tylenol] Med 02/01/17 12:00 Active 650 mg PO Q4H PRN Enoxaparin [Lovenox] Med 02/01/17 08:00 Active 30 mg SUBCUT Q24H Ondansetron [Zofran ODT] Med 02/01/17 12:00 Active 4 mg PO Q4H PRN Sodium Chloride 0.9% [Saline Flush] Med 02/01/17 12:00 Active 10 ml FLUSH ASDIRECTED PRN Temazepam [Restoril] Med 02/01/17 12:00 Active 15 mg PO BEDTIME PRN Saline Lock Insert [OM.PC] Routine Oth 02/01/17 12:00 Ordered Resuscitation Status Routine Resus Stat 02/01/17 11:43 Ordered EKG 12 Lead [EK] Stat Ther 02/01/17 10:46 Stop Req Medication Orders Acetaminophen (Tylenol) 650 mg PO Q4H PRN PRN Reason: Pain (Mild 1-3)/fever Aspirin (Ecotrin) 325 mg PO DAILY [facility] Calcium Carbonate/Glycine (Tums) 500 mg PO BIDMEALS [facility] Cholecalciferol (Vitamin D3) 1,000 units PO DAILY [facility] Enoxaparin Sodium (Lovenox) 30 mg SUBCUT Q24H [facility] Furosemide (Lasix) 40 mg PO DAILY [facility] Insulin Detemir (Levemir) 40 unit SUBCUT DAILY [facility] Insulin Detemir (Levemir) 22 unit SUBCUT BEDTIME [facility] Magnesium Oxide (Magnesium Oxide) 500 mg PO BEDTIME [facility] Metformin HCl (Glucophage) 500 mg PO DAILY [facility] Mometasone Furoate/Formoterol Fumar (Dulera 200-5 Mcg) 1 puff IH BID PRN PRN Reason: Shortness of Breath Multivitamins/Minerals/Vitamin C (Tab-A-Jimi) 1 tab PO DAILY [facility] Daily Coumadin Order (--Ask Provider) 1 each .XX DAILY [facility] Ptom(Methylcellulose ([Citrucel] 500 Mg)) 500 mg PO BID [facility] Ptom- (Nebivolol [ (Bystolic] 5 Mg)) 5 mg PO DAILY [facility] Ondansetron HCl (Zofran Odt) 4 mg PO Q4H PRN PRN Reason: nausea, able to take PO Simvastatin (Zocor) 80 mg PO BEDTIME [facility] Sodium Chloride (Saline Flush) 10 ml FLUSH ASDIRECTED PRN PRN Reason: Keep Vein Open Temazepam (Restoril) 15 mg PO BEDTIME PRN PRN Reason: Sleep Labs: Laboratory Tests 02/01/17 02/01/17 Range/Units 10:46 10:46 WBC 6.8 (5.0-10.0) 10^3/uL RBC 4.66 (4.00-5.50) 10^6/uL Hgb 12.9 (12.0-16.0) g/dL Hct 40.2 (37.0-47.0) % MCV 86.3 (82.0-94.0) fL MCH 27.7 (27.0-32.0) pg MCHC 32.1 L (33.0-38.0) g/dL RDW Coeff of Carter 15.7 H (11.0-15.0) % Plt Count 231 (150-400) 10^3/uL Neut % (Auto) 73.4 (35-85) % Lymph % (Auto) 18.0 (10-55) % Powell % (Auto) 5.9 (0-16) % Eos % (Auto) 2.4 (0-5) % Baso % (Auto) 0.3 (0-3) % Neut # (Auto) 4.98 (1.80-7.00) 10^3/uL Lymph # (Auto) 1.22 (1.00-4.80) 10^3/uL Powell # (Auto) 0.40 (0.00-0.80) 10^3/uL Eos # (Auto) 0.16 (0.00-0.45) 10^3/uL Baso # (Auto) 0.02 10^3/uL Sodium 144 (136-145) mEq/L Potassium 3.5 D (3.5-5.0) mEq/L Chloride 102 (98-106) mEq/L Carbon Dioxide 32 (21-32) mmol/L BUN 23 H (7-18) mg/dL Creatinine 1.3 H (0.6-1.0) mg/dL Est Cr Clr Drug Dosing TNP Estimated GFR (MDRD) 39 L (>=60) mL/min Glucose 169 H D (75-99) mg/dL Calcium 9.9 (8.4-10.1) mg/dL Total Bilirubin 0.9 (0.0-1.0) mg/dL AST 20 (15-37) U/L ALT 23 (12-78) U/L Alkaline Phosphatase 66 (46-116) U/L Troponin I 0.029 (0.00-0.06) ng/mL Total Protein 7.3 (6.4-8.2) g/dL Albumin 3.7 (3.4-5.0) g/dL Meds: Medications Generic Name Dose Route Start Last Admin Trade Name Freq PRN Reason Stop Dose Admin Acetaminophen 650 mg 02/01/17 12:00 Tylenol PO Q4H PRN Pain (Mild 1-3)/fever Aspirin 325 mg 02/02/17 08:00 Ecotrin PO DAILY [facility] Calcium Carbonate/Glycine 500 mg 02/01/17 17:30 Tums PO BIDMEALS [facility] Cholecalciferol 1,000 units 02/02/17 08:00 Vitamin D3 PO DAILY [facility] Enoxaparin Sodium 30 mg 02/01/17 08:00 Lovenox SUBCUT Q24H [facility] Furosemide 40 mg 02/02/17 08:00 Lasix PO DAILY [facility] Insulin Detemir 40 unit 02/02/17 08:00 Levemir SUBCUT DAILY [facility] Insulin Detemir 22 unit 02/01/17 20:00 Levemir SUBCUT BEDTIME [facility] Magnesium Oxide 500 mg 02/01/17 20:00 Magnesium Oxide PO BEDTIME [facility] Metformin HCl 500 mg 02/02/17 08:00 Glucophage PO DAILY [facility] Mometasone Furoate/Formoterol Fumar 1 puff 02/01/17 12:41 Dulera 200-5 Mcg IH BID PRN Shortness of Breath Multivitamins/Minerals/Vitamin C 1 tab 02/02/17 08:00 Tab-A-Jimi PO DAILY [facility] Daily Coumadin Order 1 each 02/02/17 08:00 --Ask Provider .XX DAILY [facility] Ptom(Methylcellulose 500 mg 02/01/17 20:00 [Citrucel] 500 Mg) PO BID [facility] Ptom- (Nebivolol [ 5 mg 02/02/17 08:00 Bystolic] 5 Mg) PO DAILY [facility] Ondansetron HCl 4 mg 02/01/17 12:00 Zofran Odt PO Q4H PRN nausea, able to take PO Simvastatin 80 mg 02/01/17 20:00 Zocor PO BEDTIME [facility] Sodium Chloride 10 ml 02/01/17 12:00 Saline Flush FLUSH ASDIRECTED PRN Keep Vein Open Temazepam 15 mg 02/01/17 12:00 Restoril PO BEDTIME PRN Sleep Discontinued Medications Generic Name Dose Route Start Last Admin Trade Name Freq PRN Reason Stop Dose Admin Warfarin Sodium 5 mg 02/01/17 12:00 02/01/17 13:10 Coumadin PO 02/01/17 12:01 5 mg ONETIME ONE Administration - Re-Assessments/Exams Free Text/Narrative Re-Assessment/Exam: 02/01/17 EKG noted to show atrial fib. No known history of this. Departure - Departure Time of Disposition: 13:55 Disposition: Admitted As Inpatient 66 Condition: good Clinical Impression: Atrial fibrillation Qualifiers: Atrial fibrillation type: persistent Qualified Code(s): I48.1 - Persistent atrial fibrillation TIA (transient ischemic attack) Qualifiers: Transient cerebral ischemia type: unspecified Qualified Code(s): G45.9 - Transient cerebral ischemic attack, unspecified - Problem List & Annotations (1) Atrial fibrillation SNOMED Code(s): 37701474 Code(s): I48.91 - UNSPECIFIED ATRIAL FIBRILLATION Status: Acute Priority : High Current Visit: Yes Qualifiers: Atrial fibrillation type: persistent Qualified Code(s): I48.1 - Persistent atrial fibrillation (2) TIA (transient ischemic attack) SNOMED Code(s): 637910023, 804403309 Code(s): G45.9 - TRANSIENT CEREBRAL ISCHEMIC ATTACK, UNSPECIFIED Status: Acute Priority: High Current Visit: Yes Qualifiers: Transient cerebral ischemia type: unspecified Qualified Code(s): G45.9 - Transient cerebral ischemic attack, unspecified - Problem List Review Problem List Initiated/Reviewed/Updated: Yes - My Orders Last 24 Hours: My Active Orders 02/01/17 08:00 Enoxaparin [Lovenox] 30 mg SUBCUT Q24H 02/01/17 10:46 Up ad Celeste [RC] ASDIRECTED Cervical Spine wo Cont [CT] Stat Head wo Cont [CT] Stat EKG 12 Lead [EK] Stat 02/01/17 11:42 Cardiac Monitoring [RC] . DIRECTED 02/01/17 11:43 Resuscitation Status Routine 02/01/17 12:00 Patient Status [ADT] Routine Cardiac Monitoring [RC] CONTINUOUS Neuro Check [RC] Q4HR Oxygen Therapy [RC] PRN VTE/DVT Education [RC] PER UNIT ROUTINE Vital Signs [RC] Q4H Acetaminophen [Tylenol] 650 mg PO Q4H PRN Ondansetron [Zofran ODT] 4 mg PO Q4H PRN Sodium Chloride 0.9% [Saline Flush] 10 ml FLUSH ASDIRECTED PRN Temazepam [Restoril] 15 mg PO BEDTIME PRN Saline Lock Insert [OM.PC] Routine 02/01/17 Lunch 2 Gram Sodium Diet [DIET] - Assessment/Plan Admission H&P: Please use this note as an admission H&P Last 24 Hours: My Active Orders 02/01/17 08:00 Enoxaparin [Lovenox] 30 mg SUBCUT Q24H 02/01/17 10:46 Up ad Celeste [RC] ASDIRECTED Cervical Spine wo Cont [CT] Stat Head wo Cont [CT] Stat EKG 12 Lead [EK] Stat 02/01/17 11:42 Cardiac Monitoring [RC] . DIRECTED 02/01/17 11:43 Resuscitation Status Routine 02/01/17 12:00 Patient Status [ADT] Routine Cardiac Monitoring [RC] CONTINUOUS Neuro Check [RC] Q4HR Oxygen Therapy [RC] PRN VTE/DVT Education [RC] PER UNIT ROUTINE Vital Signs [RC] Q4H Acetaminophen [Tylenol] 650 mg PO Q4H PRN Ondansetron [Zofran ODT] 4 mg PO Q4H PRN Sodium Chloride 0.9% [Saline Flush] 10 ml FLUSH ASDIRECTED PRN Temazepam [Restoril] 15 mg PO BEDTIME PRN Saline Lock Insert [OM.PC] Routine 02/01/17 Lunch 2 Gram Sodium Diet [DIET] Assessment:: New Onset Atrial Fib Questionable TIA Plan: Admit to Dr. Bazan. Will start Coumadin. Obtain a CTA of neck and head in am. Follow INR. Dr. Bazan aware of admission and agrees with plan.
[2017-02-01] MEDS ORDERED: Acetaminophen 325 MG Tab PO PRN (12:00)
[2017-02-01] MEDS ORDERED: Warfarin 5 MG Tab PO ONE (12:00)
[2017-02-01] MEDS ORDERED: Ondansetron 4 MG Tab.DIS PO PRN (12:00)
[2017-02-01] MEDS ORDERED: Temazepam 15 MG Cap PO PRN (12:00)
[2017-02-01] MEDS ORDERED: Sodium Chloride 0.9% 10 ML Syringe FLUSH PRN (12:00)
[2017-02-01] MEDS ORDERED: Formoterol/Mometasone 200-5 MCG 8.8 GM Inhaler IH PRN (12:41)
[2017-02-01] MEDS ORDERED: Enoxaparin 30 MG/0.3 ML Syringe SUBCUT ONE (14:15)
[2017-02-01] MEDS: Insuln Aspart Prot/Insulin Aspart 100 Units/ML 3 ML FlexPen SUBCUT SCH (17:28)
[2017-02-01] MEDS: Calcium Carbonate 500 MG Tab.Chew PO SCH (17:41)
[2017-02-01] MEDS: Simvastatin 40 MG Tab PO SCH (19:45)
[2017-02-01] MEDS: METHYLCELLULOSE 500 MG PO SCH (19:46)
[2017-02-01] MEDS ORDERED: Insulin Detemir 100 Units/ML 3 ML Pen SUBCUT SCH (20:00)
[2017-02-02] MEDS ORDERED: Iopamidol 755 Mg/ML 100 ML Bottle IVPUSH ONE (07:32)
[2017-02-02] MEDS: metFORMIN 500 MG Tab PO SCH (07:49)
[2017-02-02] MEDS: Insuln Aspart Prot/Insulin Aspart 100 Units/ML 3 ML FlexPen SUBCUT SCH ×2 (07:53→17:22)
[2017-02-02] MEDS: Calcium Carbonate 500 MG Tab.Chew PO SCH ×2 (07:58→17:22)
[2017-02-02] MEDS: Cholecalciferol (Vitamin D3) 1,000 Unit Tab PO SCH (07:58)
[2017-02-02] MEDS: Multivitamin Tab PO SCH (07:58)
[2017-02-02] MEDS: Aspirin 325 MG Tab.EC PO SCH (07:58)
[2017-02-02] MEDS: Furosemide 40 MG Tab PO SCH (07:58)
[2017-02-02] MEDS ORDERED: Insulin Detemir 100 Units/ML 3 ML Pen SUBCUT SCH (08:00)
[2017-02-02] MEDS ORDERED: Warfarin 5 MG Tab PO ONE (08:15)
[2017-02-02] MEDS: [UNRECOGNIZED DRUG - OTHER] SCH (08:43)
--- NOTE | 2017-02-02 11:25 | PN ---
DATE: 02/02/2017 S: Leslie Calloway was admitted with a TIA secondary to atrial fibrillation. She was admitted, placed on telemetry, started on anticoagulation. O: NECK: Supple. CHEST: Clear. CARDIAC: Irregularly irregular. No edema. ASSESSMENT: ATRIAL FIBRILLATION, TRANSIENT ISCHEMIC ATTACK. P: Continue anticoagulation. I believe, she has had a recent angiogram echo down in [place]. DENISE/VERONICA /[id number]
[2017-02-02] MEDS: NEBIVOLOL 5 MG PO SCH (12:22)
[2017-02-02] MEDS: METHYLCELLULOSE 500 MG PO SCH (12:23)
[2017-02-02] MEDS: Enoxaparin 30 MG/0.3 ML Syringe SUBCUT SCH (19:53)
[2017-02-02] MEDS: Simvastatin 40 MG Tab PO SCH (19:54)
[2017-02-03] MEDS: Aspirin 325 MG Tab.EC PO SCH (07:45)
[2017-02-03] MEDS: Multivitamin Tab PO SCH (07:46)
[2017-02-03] MEDS: Cholecalciferol (Vitamin D3) 1,000 Unit Tab PO SCH (07:46)
[2017-02-03] MEDS: Furosemide 40 MG Tab PO SCH (07:46)
[2017-02-03] MEDS: NEBIVOLOL 5 MG PO SCH (07:47)
[2017-02-03] MEDS: Calcium Carbonate 500 MG Tab.Chew PO SCH ×2 (07:48→17:34)
[2017-02-03] MEDS: Insuln Aspart Prot/Insulin Aspart 100 Units/ML 3 ML FlexPen SUBCUT SCH ×2 (08:13→17:32)
[2017-02-03] MEDS ORDERED: Warfarin 5 MG Tab PO ONE (13:32)
[2017-02-03] MEDS ORDERED: Warfarin 2.5 MG Tab PO ONE (13:45)
[2017-02-03] MEDS: [UNRECOGNIZED DRUG - OTHER] SCH (14:07)
[2017-02-03] MEDS: Simvastatin 40 MG Tab PO SCH (19:42)
[2017-02-03] MEDS: Enoxaparin 30 MG/0.3 ML Syringe SUBCUT SCH (19:43)
--- NOTE | 2017-02-04 07:04 | PN ---
DATE: 02/03/2017 S: Leslie Calloway is in with atrial fibrillation and associated TIAs. She is doing fine. CTA head and neck look good. O: NECK: Supple. CHEST: Clear. CARDIAC: Regular. A lot of pain in her right shoulder though. IMPRESSION AND PLAN: 1. Atrial fibrillation with transient ischemic attack, continue anticoagulation. 2. Bursitis, right shoulder, get physical therapy to work on her. DENISE/VERONICA /[id number]
[2017-02-04 07:48] VITALS: BP 132/70
[2017-02-04] MEDS: Multivitamin Tab PO SCH (07:52)
[2017-02-04] MEDS: Furosemide 40 MG Tab PO SCH (07:52)
[2017-02-04] MEDS: NEBIVOLOL 5 MG PO SCH (07:53)
[2017-02-04] MEDS: Calcium Carbonate 500 MG Tab.Chew PO SCH (07:53)
[2017-02-04] MEDS: Cholecalciferol (Vitamin D3) 1,000 Unit Tab PO SCH (07:53)
[2017-02-04] MEDS: Aspirin 325 MG Tab.EC PO SCH (07:53)
[2017-02-04] MEDS: Insuln Aspart Prot/Insulin Aspart 100 Units/ML 3 ML FlexPen SUBCUT SCH (07:56)
[2017-02-04] MEDS: metFORMIN 500 MG Tab PO SCH (08:13)
[2017-02-04] MEDS ORDERED: Albuterol/Ipratropium 3.0-0.5 MG/3 ML Neb Soln NEB ONE (09:33)
--- NOTE | 2017-02-07 08:45 | DISCH ---
HOSPITAL COURSE: Leslie Calloway is an elderly white female comes in with TIA secondary to atrial fibrillation, probably thromboembolic phenomenon. She was started on anticoagulants, responded nicely, and the numbness in her left upper extremity has resolved. At the time of discharge, neck was supple. Chest was clear. Cardiac; irregularly, irregular. No edema. LABORATORY DATA: Lab here in the hospital, iatrogenically elevated INRs. Blood sugars were good. ProBNP just mildly elevated of no concern. DISPOSITION: The patient is now discharged home. We will see her back in the clinic on Tuesday in [place] for INR. DISCHARGE MEDICATIONS: Home medications except baby aspirin rathern than 325 and Coumadin 5 mg daily. DISCHARGE DIAGNOSIS: 1. ATRIAL FIBRILLATION WITH ASSOCIATED TRANSIENT ISCHEMIC ATTACK. 2. HYPERLIPIDEMIA. 3. DIABETES MELLITUS. 4. 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 DENISE/VERONICA /[id number]
== END 2017-02-04 11:25 | disposition home or self-care (01) | DRG 309 ==
LOC: CC.ED 10:30 → UNDOADMIN 11:50 → CC.MS 11:50
PROVIDERS: ADMIT Physician Assistant Medical; ATTEND General Practice
DX: I48.1 Persistent atrial fibrillation (principal); I48.91 Unspecified atrial fibrillation; G45.9 Transient cerebral ischemic attack, unspecified; I50.20 Unspecified systolic (congestive) heart failure; E11.9 Type 2 diabetes mellitus without complications; I25.10 Atherosclerotic heart disease of native coronary artery without angina pectoris; E78.00 Pure hypercholesterolemia, unspecified; J45.909 Unspecified asthma, uncomplicated; I10 Essential (primary) hypertension; Z79.82 Long term (current) use of aspirin; Z79.4 Long term (current) use of insulin; R06.02 Shortness of breath; Z79.84 Long term (current) use of oral hypoglycemic drugs; Z79.899 Other long term (current) drug therapy; E78.5 Hyperlipidemia, unspecified; M75.51 Bursitis of right shoulder
CPT/HCPCS: 36415; 70450; 70496; 70498; 72125; 80048; 80053; 82962; 83880; 84484; 85025; 85610; 93005; 93010; 94060; 94640; 99285; A9270-GY; J1650; J1815-GY; Q9967

== ENCOUNTER 2017-02-25 22:49 | Emergency (ER) | payer MEDICARE, BC ==
--- NOTE | 2017-02-25 22:58 | EDM.PDOC ---
ED HPI GENERAL MEDICAL PROBLEM - General Chief Complaint: General Stated Complaint: SOB Time Seen by Provider: 02/25/17 22:51 Source of Information: Reports: Patient History Limitations: Reports: No limitations - History of Present Illness INITIAL COMMENTS - FREE TEXT/NARRATIVE: This patient is an 81 year old female that presents to the ER. Patient reports that this morning when she woke up that she began to have mild shortness of breath. The patient reports that yesterday she noticed mild abdomen swelling. Patient reports some chest congestion today. She reports that she started with productive yellow sputum cough today. Patient reports that she has a history of heart failure and this is how it started last time. She reports she waited to long last time, so she came to ER early this time. Patient denies esqueda, dizziness , n, v, d, f, cp, abd pain, urinary/bowel changes. Patient is conversing in full and complete sentences without difficulty. Does not appear in acute distress. Onset: today Onset Date: 02/25/17 Duration: Hour(s): (16) Severity: mild Improves with: Reports: None Worsens with: Reports: None Associated Symptoms: Reports: cough, cough w sputum, shortness of breath. Denies: confusion, chest pain, diaphoresis, fever/chills, headaches, loss of appetite, malaise, nausea/vomiting, rash, seizure, syncope, weakness - Related Data Allergies Allergy/AdvReac Type Severity Reaction Status Date / Time No Known Allergies Allergy Verified 02/25/17 22:54 Home Meds: Home Meds Simvastatin 80 mg PO BEDTIME 12/24/15 [History] Budesonide/Formoterol [Symbicort 160-4.5 MCG] 1 puff INH BID PRN 10/28/16 [ History] Calcium Carbonate [Calcium] 600 mg PO BID 10/28/16 [History] Magnesium 500 mg PO BEDTIME 10/28/16 [History] Methylcellulose [Citrucel] 500 mg PO BID 10/28/16 [History] Multivitamin [Daily Multiple Vitamin] 1 each PO DAILY 10/28/16 [History] metFORMIN HCl [Metformin HCl] 500 mg PO DAILY 10/28/16 [History] Nebivolol [Bystolic] 5 mg PO DAILY 01/26/17 [History] Cholecalciferol (Vitamin D3) [Vitamin D3] 1,000 unit PO BID 02/01/17 [History] Furosemide 40 mg PO DAILY 02/01/17 [History] Insuln Asp Prot/Insulin Aspart [NovoLOG Mix 70-30] 18 unit SUBCUT ACDINNER 02/01 [History] Insuln Asp Prot/Insulin Aspart [NovoLOG Mix 70-30] 36 unit SUBCUT ACBREAKFAST [History] Aspirin 81 mg PO DAILY 02/25/17 [History] Lisinopril [Lisinopril] 2.5 mg PO DAILY 02/25/17 [History] Warfarin [Coumadin] 2.5 mg PO ASDIRECTED 02/25/17 [History] Warfarin [Coumadin] 5 mg PO ASDIRECTED 02/25/17 [History] Past Medical History HEENT History: Reports: Cataract Other HEENT History: "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 Cardiovascular History: Reports: CAD, High cholesterol, Hypertension Respiratory History: Reports: Asthma Genitourinary History: Reports: Renal calculus, UTI, recurrent 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: Musculoskeletal History: Reports: Fracture Endocrine/Metabolic History: Reports: Diabetes, type II - Past Surgical History HEENT Surgical History: Reports: Cataract surgery GI Surgical History: Reports: Appendectomy Social & Family History - Family History Family Medical History: Noncontributory - Tobacco Use Smoking Status *Q: Never Smoker Second Hand Smoke Exposure: No - Caffeine Use Caffeine Use: Reports: Tea - Recreational Drug Use Recreational Drug Use: No ED ROS GENERAL - Review of Systems Review Of Systems: See Below Constitutional: Reports: no symptoms HEENT: Reports: No symptoms Respiratory: Reports: Shortness of Breath, Cough, Sputum Cardiovascular: Reports: No symptoms Endocrine: Reports: no symptoms GI/Abdominal: Reports: Distension : Reports: no symptoms Musculoskeletal: Reports: no symptoms Skin: Reports: no symptoms Neurological: Reports: No Symptoms Psychiatric: Reports: No symptoms Hematologic/Lymphatic: Reports: no symptoms Immunologic: Reports: no symptoms ED EXAM, GENERAL - Physical Exam Exam: See Below Exam Limited By: No limitations General Appearance: alert, WD/WN, no apparent distress Eye Exam: bilateral eye: normal inspection Ears: normal external exam, normal canal, hearing grossly normal, normal TMs Ear Exam: bilateral ear: auricle normal, canal normal, TM normal Nose: normal inspection, normal mucosa, no blood Throat/Mouth: Normal inspection, Normal lips, Normal gums, Normal oropharynx, Normal voice, No airway compromise Head: atraumatic, normocephalic Neck: normal inspection, supple, non-tender, full range of motion Respiratory/Chest: no respiratory distress, lungs clear, normal breath sounds, no accessory muscle use Cardiovascular: normal peripheral pulses, no edema, no gallop, no JVD, no murmur , no rub, systolic murmur, irregularly irregular Peripheral Pulses: 2+: posterior tibial (L), posterior tibial (R), dorsalis pedis (L), dorsalis pedis (R) GI/Abdominal: normal bowel sounds, soft, non tender, no organomegaly, no abnormal bruit, no mass, distended (mildly) Back Exam: normal inspection, full range of motion Extremities: normal inspection, normal range of motion, non-tender, no pedal edema, normal capillary refill Neurological: alert, oriented, CN II-XII intact, normal cognition Psychiatric: normal affect, normal mood Skin Exam: Warm, Dry, Intact, Normal color, No rash EKG INTERPRETATION EKG Date: 02/25/17 Time: 23:04 Rhythm: a-fib Rate (beats/min): 86 EKG Interpretation Comments: controlled. history of a-fib. Course - Vital Signs Last Recorded V/S: Last Vital Signs Temp 98.2 F 02/25/17 23:14 Pulse 89 02/25/17 23:14 Resp 16 02/25/17 23:14 BP 137/70 02/25/17 23:14 Pulse Ox 95 02/25/17 23:14 - Orders/Labs/Meds Orders: Active Orders 24 hr Category Date Time Status Chest 2V [CR] Stat Exams 02/25/17 22:57 Taken Labs: Laboratory Tests 02/25/17 02/25/17 02/25/17 Range/Units 22:56 22:56 22:56 WBC 7.0 (5.0-10.0) 10^3/uL RBC 4.44 (4.00-5.50) 10^6/uL Hgb 12.4 (12.0-16.0) g/dL Hct 37.9 (37.0-47.0) % MCV 85.4 (82.0-94.0) fL MCH 27.9 (27.0-32.0) pg MCHC 32.7 L (33.0-38.0) g/dL RDW Coeff of Carter 15.2 H (11.0-15.0) % Plt Count 241 (150-400) 10^3/uL Neut % (Auto) 62.1 (35-85) % Lymph % (Auto) 23.2 (10-55) % [place] % (Auto) 12.4 (0-16) % Eos % (Auto) 2.0 (0-5) % Baso % (Auto) 0.3 (0-3) % Neut # (Auto) 4.36 (1.80-7.00) 10^3/uL Lymph # (Auto) 1.63 (1.00-4.80) 10^3/uL [place] # (Auto) 0.87 H (0.00-0.80) 10^3/uL Eos # (Auto) 0.14 (0.00-0.45) 10^3/uL Baso # (Auto) 0.02 10^3/uL PT 17.9 H (9.7-12.3) SEC INR 1.63 H (0.92-1.18) Sodium 138 (136-145) mEq/L Potassium 3.8 (3.5-5.0) mEq/L Chloride 100 (98-106) mEq/L Carbon Dioxide 29 (21-32) mmol/L BUN 27 H (7-18) mg/dL Creatinine 1.2 H (0.6-1.0) mg/dL Est Cr Clr Drug Dosing 28.41 mL/min Estimated GFR (MDRD) 43 L (>=60) mL/min Glucose 213 H (75-99) mg/dL Calcium 8.8 (8.4-10.1) mg/dL Total Bilirubin 0.5 (0.0-1.0) mg/dL AST 20 (15-37) U/L ALT 23 (12-78) U/L Alkaline Phosphatase 77 (46-116) U/L Troponin I < 0.017 (0.00-0.06) ng/mL C-Reactive Protein 0.2 (0.2-0.8) mg/dL Avb-M-Ptrylrenglu Pept 1894 H (0-1000) pg/nL Total Protein 6.9 (6.4-8.2) g/dL Albumin 3.2 L (3.4-5.0) g/dL Meds: Medications Discontinued Medications Generic Name Dose Route Start Last Admin Trade Name Bob PRN Reason Stop Dose Admin Ceftriaxone Sodium 1 gm 02/25/17 23:43 02/25/17 23:58 Rocephin IM 02/25/17 23:44 1 gm ONETIME ONE Administration Furosemide 40 mg 02/25/17 23:43 02/25/17 23:57 Lasix PO 02/25/17 23:44 40 mg ONETIME ONE Administration Lidocaine HCl 20 ml 02/25/17 23:43 02/25/17 23:58 Xylocaine 1% INJECT 02/25/17 23:44 20 ml ONETIME ONE Administration Methylprednisolone Sodium Succinate 125 mg 02/25/17 23:51 02/25/17 23:58 Solu-Medrol IM 02/25/17 23:52 125 mg ONETIME ONE Administration - Radiology Interpretation Free Text/Narrative:: CXR: compared to previous, no pulmonary edema, no infiltrates, no cardiomegaly. Departure - Departure Time of Disposition: 23:37 Disposition: Home, Self-Care 01 Condition: good Clinical Impression: Congestive heart failure Qualifiers: Congestive heart failure type: systolic Congestive heart failure chronicity: acute on chronic Qualified Code(s): I50.23 - Acute on chronic systolic ( congestive) heart failure Upper respiratory infection Qualifiers: URI type: unspecified viral URI Qualified Code(s): J06.9 - Acute upper respiratory infection, unspecified Referrals: Lee Bazan MD [Primary Care Provider] - Forms: ED Department Discharge Additional Instructions: Followup with your primary care provider Tuesday Return to the ER for worsening of condition or any emergent concerns Increase your Lasix 40mg 1 pill twice a day on Tuesday, Tuesday, Tuesday. Cefdinir 300mg 1 pill twice a day for 10 days #20 no refill - My Orders Last 24 Hours: My Active Orders 02/25/17 22:57 Chest 2V [CR] Stat - Assessment/Plan Last 24 Hours: My Active Orders 02/25/17 22:57 Chest 2V [CR] Stat Plan: PLEASE SEE RN NOTE FOR PFSH.
[2017-02-25 23:16] VITALS: BP 137/70
[2017-02-25 23:24] LABS: CHLORIDE,CL 100 mEq/L (98-106); SODIUM,NA 138 mEq/L (136-145)
[2017-02-25] MEDS ORDERED: Furosemide 40 MG Tab PO ONE (23:43)
[2017-02-25] MEDS ORDERED: cefTRIAXone 1 GM Vial IM ONE (23:43)
[2017-02-25] MEDS ORDERED: Lidocaine 1% 20 ML MDV INJECT ONE (23:43)
[2017-02-25] MEDS ORDERED: methylPREDNISolone Sodium Succinate 125 MG/2 ML SDV IM ONE (23:51)
== END 2017-02-26 00:12 | disposition home or self-care (01) ==
LOC: CC.ED 22:49
DX: I25.10 Atherosclerotic heart disease of native coronary artery without angina pectoris (principal); I11.0 Hypertensive heart disease with heart failure; I50.23 Acute on chronic systolic (congestive) heart failure; J06.9 Acute upper respiratory infection, unspecified; E78.00 Pure hypercholesterolemia, unspecified; E11.9 Type 2 diabetes mellitus without complications; Z79.4 Long term (current) use of insulin; Z79.84 Long term (current) use of oral hypoglycemic drugs; Z79.82 Long term (current) use of aspirin; Z79.01 Long term (current) use of anticoagulants; Z79.899 Other long term (current) drug therapy
CPT/HCPCS: 36415; 71020; 80053; 83880; 84484; 85025; 85610; 86140; 93005; 96372; 99285; A9270; J0696; J2930; 93010

== ENCOUNTER 2017-06-29 10:27 | Emergency (ER) | payer MEDICARE, BC ==
[2017-06-29 10:42] VITALS: BP 140/70
--- NOTE | 2017-06-29 12:22 | EDM.PDOC ---
ED HPI GENERAL MEDICAL PROBLEM - General Chief Complaint: Back Pain or Injury Stated Complaint: FELL Time Seen by Provider: 06/29/17 10:53 Source of Information: Reports: Patient History Limitations: Reports: No Limitations - History of Present Illness INITIAL COMMENTS - FREE TEXT/NARRATIVE: Patient presents today after she fell at home. She states she was carrying a bag of groceries and a gallon of milk of her steps at home and lost her footing and fell down 5 stairs. She denies loss of consciousness. Did not hit her head. Can recall all events of the fall. Does admit that she has more back pain now, especially in the right hip area. She also sustained significant skin tears to the right forearm. Is on Coumadin and worries about bleeding. No joint pain elsewhere. Denies any abdominal pain, chest pain, shortness of breath. Does have issues with balance and uses a cane normally. Onset: Today, Sudden Duration: Hour(s): Location: Reports: Back Quality: Reports: Ache Severity: Moderate Improves with: Reports: Rest Worsens with: Reports: Movement Associated Symptoms: Denies: Confusion, Chest Pain, Cough, Nausea/Vomiting, Shortness of Breath, Syncope, Weakness Right Back Pain Score (Numeric/FACES): 4 - Related Data Allergies Allergy/AdvReac Type Severity Reaction Status Date / Time No Known Allergies Allergy Verified 06/29/17 10:36 Home Meds: Home Meds Simvastatin 80 mg PO BEDTIME 12/24/15 [History] Budesonide/Formoterol [Symbicort 160-4.5 MCG] 1 puff INH BID PRN 10/28/16 [ History] Calcium Carbonate [Calcium] 600 mg PO BID 10/28/16 [History] Magnesium 500 mg PO DAILY 10/28/16 [History] Methylcellulose [Citrucel] 500 mg PO BID 10/28/16 [History] Multivitamin [Daily Multiple Vitamin] 1 each PO DAILY 10/28/16 [History] metFORMIN HCl [Metformin HCl] 500 mg PO QPM 10/28/16 [History] Nebivolol [Bystolic] 5 mg PO DAILY 01/26/17 [History] Cholecalciferol (Vitamin D3) [Vitamin D3] 1,000 unit PO BID 02/01/17 [History] Furosemide 40 mg PO DAILY 02/01/17 [History] Insuln Asp Prot/Insulin Aspart [NovoLOG Mix 70-30] 20 unit SUBCUT ACDINNER 02/01 [History] Insuln Asp Prot/Insulin Aspart [NovoLOG Mix 70-30] 35 unit SUBCUT ACBREAKFAST [History] Aspirin 81 mg PO BEDTIME 02/25/17 [History] Lisinopril [Lisinopril] 2.5 mg PO DAILY 02/25/17 [History] Warfarin [Coumadin] 2.5 mg PO ASDIRECTED 02/25/17 [History] Warfarin [Coumadin] 5 mg PO ASDIRECTED 02/25/17 [History] Past Medical History HEENT History: Reports: Cataract Other HEENT History: "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: Musculoskeletal History: Reports: Arthritis, Fracture Endocrine/Metabolic History: Reports: Diabetes, Type II - Past Surgical History HEENT Surgical History: Reports: Cataract Surgery Cardiovascular Surgical History: Reports: Valve Replacement GI Surgical History: Reports: Appendectomy, Colonoscopy, Polypectomy Female Surgical History: Reports: None Musculoskeletal Surgical History: Reports: None Social & Family History - Family History Family Medical History: Noncontributory - Tobacco Use Smoking Status *Q: Never Smoker Second Hand Smoke Exposure: No - Caffeine Use Caffeine Use: Reports: Coffee - Recreational Drug Use Recreational Drug Use: No ED ROS GENERAL - Review of Systems Review Of Systems: See Below Constitutional: Denies: Weakness, Fatigue HEENT: Reports: No Symptoms Respiratory: Denies: Shortness of Breath, Wheezing, Cough Cardiovascular: Denies: Chest Pain, Palpitations, Syncope Endocrine: Denies: Fatigue GI/Abdominal: Denies: Abdominal Pain, Nausea, Vomiting : Reports: No Symptoms Musculoskeletal: Reports: Back Pain Skin: Reports: Other (skin tears to right forearm. Bruising to left forearm) Neurological: Denies: Dizziness, Headache, Syncope, Weakness Psychiatric: Reports: No Symptoms ED EXAM,LOWER BACK PAIN/INJURY - Physical Exam Exam: See Below Exam Limited By: No Limitations General Appearance: Alert, WD/WN, No Apparent Distress Ears: Normal External Exam, Normal TMs Nose: Normal Inspection, Normal Mucosa, No Blood Throat/Mouth: Normal Inspection, Normal Oropharynx Head: Normocephalic Neck: Normal Inspection, Supple, Non-Tender Respiratory/Chest: No Respiratory Distress, Lungs Clear Cardiovascular: Regular Rate, Rhythm GI/Abdominal: Normal Bowel Sounds, Soft, Non-Tender Back Exam: Normal Inspection, Decreased Range of Motion, Paraspinal Tenderness ( Right paraspinal region ), Vertebral Tenderness Neurological: Alert, Normal Mood/Affect Skin Exam: Other (multiple skin tears to right forearm. Does have gravel/sand in wound. Nurse cleansed, applied steri strips. Edges approximated well.) Course - Vital Signs Last Recorded V/S: Last Vital Signs Temp 97.3 F 06/29/17 10:39 Pulse 91 06/29/17 10:39 Resp 16 06/29/17 10:39 BP 140/70 06/29/17 10:39 Pulse Ox 95 06/29/17 10:39 - Orders/Labs/Meds Orders: Active Orders 24 hr Category Date Time Status Hip Min 2V or 3V w Pelvis Rt [CR] Stat Exams 06/29/17 10:56 Taken Lumbar Spine 2 or 3V [CR] Stat Exams 06/29/17 10:56 Taken - Re-Assessments/Exams Free Text/Narrative Re-Assessment/Exam: 06/29/17 Discussed xray with person. Does have a notable wedge compression in L3. Question if acute changes as this compression fracture was noted in 2010 but appears changed. Will treat with pain meds as patient doesn't feel overly severe yet at this point and will await radiology read on this and pursue MRI if needed. She is agreeable with this plan. Departure - Departure Time of Disposition: 12:21 Disposition: Home, Self-Care 01 Condition: Fair Clinical Impression: Back pain - Discharge Information Referrals: Lee Bazan MD [Primary Care Provider] - Forms: ED Department Discharge Additional Instructions: 1. Rest 2. Heat or ice to back 3. Tramadol 50 mg 1-2 as needed for pain 4. We will contact you with full radiology report to determine if compression wedge acute and if further treatment options/testing should be considered dependent on your pain level 5. Follow up with Dr. Bazan for concerns. - My Orders Last 24 Hours: My Active Orders 06/29/17 10:56 Hip Min 2V or 3V w Pelvis Rt [CR] Stat Lumbar Spine 2 or 3V [CR] Stat - Assessment/Plan Last 24 Hours: My Active Orders 06/29/17 10:56 Hip Min 2V or 3V w Pelvis Rt [CR] Stat Lumbar Spine 2 or 3V [CR] Stat
== END 2017-06-29 12:32 | disposition home or self-care (01) ==
LOC: CC.ED 10:27
DX: S51.811A Laceration without foreign body of right forearm, initial encounter (principal); M54.9 Dorsalgia, unspecified; I25.10 Atherosclerotic heart disease of native coronary artery without angina pectoris; E78.00 Pure hypercholesterolemia, unspecified; E11.9 Type 2 diabetes mellitus without complications; I10 Essential (primary) hypertension; I25.2 Old myocardial infarction; J45.909 Unspecified asthma, uncomplicated; K21.9 Gastro-esophageal reflux disease without esophagitis; M19.90 Unspecified osteoarthritis, unspecified site; Z98.49 Cataract extraction status, unspecified eye; Z87.440 Personal history of urinary (tract) infections; Z79.899 Other long term (current) drug therapy; Z79.01 Long term (current) use of anticoagulants; Z79.4 Long term (current) use of insulin; Z90.49 Acquired absence of other specified parts of digestive tract; W10.9XXA Fall (on) (from) unspecified stairs and steps, initial encounter
CPT/HCPCS: 72100; 99283

== ENCOUNTER 2017-07-03 13:20 | Inpatient (IN) | payer MEDICARE, BC ==
--- NOTE | 2017-07-03 14:44 | EDM.PDOC ---
ED HPI GENERAL MEDICAL PROBLEM - General Chief Complaint: Back Pain or Injury Stated Complaint: back pain Time Seen by Provider: 07/03/17 14:15 Source of Information: Reports: Patient, EMS, EMS Notes Reviewed, Old Records History Limitations: Reports: No Limitations - History of Present Illness INITIAL COMMENTS - FREE TEXT/NARRATIVE: Patient presents via ambulance with irretractable low back pain S/P fall from steps at home on Tuesday. She states she was seen in ER at [place] xrays were taken and patient was discharged to home with Tramadol 50 mg every 6 hours prn pain. SHe states xrays were negative with exception of old L3 compression fracture-Pelvis and hip xray with no acute changes. She states pain is 9/10 despite Tramadol 50 mg 2 tablets prior to arrival at home. She is diabetic and indicates she has not eaten today or taken medications. She doesn't feel like she can care for herself at home adequately at this time. 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, Other Medication(s) Left Lumbar Pain Score (Numeric/FACES): 6 - Related Data Allergies Allergy/AdvReac Type Severity Reaction Status Date / Time No Known Allergies Allergy Verified 07/03/17 13:35 Home Meds: Home Meds Simvastatin 80 mg PO BEDTIME 12/24/15 [History] Budesonide/Formoterol [Symbicort 160-4.5 MCG] 1 puff INH BID PRN 10/28/16 [ History] Calcium Carbonate [Calcium] 600 mg PO BID 10/28/16 [History] Magnesium 500 mg PO DAILY 10/28/16 [History] Methylcellulose [Citrucel] 500 mg PO BID 10/28/16 [History] Multivitamin [Daily Multiple Vitamin] 1 each PO DAILY 10/28/16 [History] metFORMIN HCl [Metformin HCl] 500 mg PO QPM 10/28/16 [History] Nebivolol [Bystolic] 5 mg PO DAILY 01/26/17 [History] Cholecalciferol (Vitamin D3) [Vitamin D3] 1,000 unit PO BID 02/01/17 [History] Furosemide 40 mg PO DAILY 02/01/17 [History] Insuln Asp Prot/Insulin Aspart [NovoLOG Mix 70-30] 20 unit SUBCUT ACDINNER 02/01 [History] Insuln Asp Prot/Insulin Aspart [NovoLOG Mix 70-30] 35 unit SUBCUT ACBREAKFAST [History] Aspirin 81 mg PO BEDTIME 02/25/17 [History] Lisinopril [Lisinopril] 2.5 mg PO DAILY 02/25/17 [History] Warfarin [Coumadin] 2.5 mg PO ASDIRECTED 02/25/17 [History] Warfarin [Coumadin] 5 mg PO ASDIRECTED 02/25/17 [History] traMADol [Ultram] 1 - 2 tab PO Q4HR PRN 07/03/17 [History] Past Medical History HEENT History: Reports: Cataract Other HEENT History: "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 Cardiovascular History: Reports: CAD, High Cholesterol, Hypertension, [place] Respiratory History: Reports: Asthma, Bronchitis, Recurrent Gastrointestinal History: Reports: Chronic Diarrhea, Diverticulosis, GERD Genitourinary History: Reports: Renal Calculus, UTI, Recurrent Other Genitourinary History: doctor at [facility] in [place] started pt on lisinipril "because my kidneys are not good" Does not know what specifically is the issue. 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: Musculoskeletal History: Reports: Arthritis, Fracture Endocrine/Metabolic History: Reports: Diabetes, Type II - Past Surgical History HEENT Surgical History: Reports: Cataract Surgery Cardiovascular Surgical History: Reports: Valve Replacement GI Surgical History: Reports: Appendectomy, Colonoscopy, Polypectomy Female Surgical History: Reports: None Musculoskeletal Surgical History: Reports: None Social & Family History - Family History Family Medical History: Noncontributory - Tobacco Use Smoking Status *Q: Never Smoker Second Hand Smoke Exposure: No - Caffeine Use Caffeine Use: Reports: Coffee, Tea - Recreational Drug Use Recreational Drug Use: No - Living Situation & Occupation Living situation: Reports: , Alone Occupation: Retired ED ROS GENERAL - Review of Systems Review Of Systems: See Below Constitutional: Reports: Weakness, Fatigue HEENT: Reports: No Symptoms Respiratory: Reports: No Symptoms Cardiovascular: Reports: No Symptoms Endocrine: Reports: No Symptoms GI/Abdominal: Reports: No Symptoms : Reports: No Symptoms Musculoskeletal: Reports: Back Pain, Muscle Pain Skin: Reports: Other (Skin tears Right lateral forearm healing) Neurological: Reports: No Symptoms, Difficulty Walking, Weakness. Denies: Tingling Psychiatric: Reports: No Symptoms Hematologic/Lymphatic: Reports: Other (Coumadin therapy TIA) Immunologic: Reports: No Symptoms ED EXAM,LOWER BACK PAIN/INJURY - Physical Exam Exam: See Below Exam Limited By: No Limitations General Appearance: Alert, WD/WN, Moderate Distress Eye Exam: Bilateral Eye: EOMI, Normal Inspection, PERRL Ears: Normal External Exam, Normal Canal, Hearing Grossly Normal, Normal TMs Nose: Normal Inspection, Normal Mucosa, No Blood Throat/Mouth: Normal Inspection, Normal Lips Head: Atraumatic, Normocephalic Neck: Normal Inspection, Supple, Non-Tender, Full Range of Motion Respiratory/Chest: No Respiratory Distress, Lungs Clear, Normal Breath Sounds Cardiovascular: Normal Peripheral Pulses, Regular Rate, Rhythm, No Edema GI/Abdominal: Soft, Non-Tender (Female) Exam: Deferred Rectal (Female) Exam: Deferred Back Exam: Normal Inspection, Paraspinal Tenderness, Vertebral Tenderness Extremities: Normal Inspection, Normal Range of Motion, Non-Tender, No Pedal Edema, Normal Capillary Refill. No: Gay's Sign Neurological: Alert, Normal Mood/Affect, Normal Dorsiflexion, CN II-XII Intact, Normal Plantar Flexion, Normal Reflexes, No Motor/Sensory Deficits, Oriented x 3. No: Abnormal Gait DTR - Lower Extremities: 2+: Knee (R), Knee (L), Ankle (R), Ankle (L) Psychiatric: Normal Affect, Normal Mood Skin Exam: Warm, Dry, Normal Color, Ecchymosis (Bilateral forearms secondary to fall previously), Wound/Incision, Other Lymphatic: No Adenopathy Course - Vital Signs Last Recorded V/S: Last Vital Signs Temp 36.4 C 07/03/17 13:22 Pulse 100 07/03/17 13:22 Resp 16 07/03/17 13:22 BP 140/70 07/03/17 13:48 Pulse Ox 96 07/03/17 13:22 - Orders/Labs/Meds Orders: Active Orders 24 hr Category Date Time Status Lumbar Spine 2 or 3V [CR] Stat Exams 07/03/17 13:37 Stop Req Lumbar Spine wo Cont [CT] Stat Exams 07/03/17 13:51 Taken Lumbar Spine wo Cont [CT] Stat Exams 07/03/17 13:56 Ordered Departure - Departure Time of Disposition: 14:53 Disposition: Refer to Observation Condition: Fair Clinical Impression: Back pain - Discharge Information Referrals: Lee Bazan MD [Primary Care Provider] - - Problem List & Annotations (1) Back pain SNOMED Code(s): 259692299 Code(s): M54.9 - DORSALGIA, UNSPECIFIED Status: Acute Current Visit: No Qualifiers: Chronicity: chronic Back pain laterality: bilateral Sciatica presence: unspecified whether sciatica present - Problem List Review Problem List Initiated/Reviewed/Updated: Yes - My Orders Last 24 Hours: My Active Orders 07/03/17 13:37 Lumbar Spine 2 or 3V [CR] Stat 07/03/17 13:51 Lumbar Spine wo Cont [CT] Stat 07/03/17 13:56 Lumbar Spine wo Cont [CT] Stat - Assessment/Plan Admission H&P: Please use this note as an admission H&P Last 24 Hours: My Active Orders 07/03/17 13:37 Lumbar Spine 2 or 3V [CR] Stat 07/03/17 13:51 Lumbar Spine wo Cont [CT] Stat 07/03/17 13:56 Lumbar Spine wo Cont [CT] Stat Assessment:: Irretractable Back Pain S/P fall L3 Compression Fracture HTN IDDM with renal insufficiency HX TIA Coumadin therapy Plan: Admit for observation for pain management and assistance with ADLS. Physical Therapy For strengthening ADL. Refer to Dr. Bazan on Tuesday for evaluation and further treatment. Patient in agreement of plan.
[2017-07-03] MEDS ORDERED: Temazepam 15 MG Cap PO PRN (15:21)
[2017-07-03] MEDS ORDERED: traMADol 50 MG Tab **OWN MED PO PRN (15:21)
[2017-07-03] MEDS ORDERED: Sodium Chloride 0.9% 10 ML Syringe FLUSH PRN (15:49)
[2017-07-03] MEDS ORDERED: cefTRIAXone 1 GM Vial IVPUSH SCH (16:00)
[2017-07-03] MEDS: Cyclobenzaprine 10 MG Tab PO PRN (16:03)
[2017-07-03] MEDS ORDERED: Insuln Aspart Prot/Insulin Aspart 100 Units/ML 3 ML FlexPen SUBCUT SCH (17:00)
--- NOTE | 2017-07-03 19:09 | PCM.PN ---
- General Info Date of Service: 07/03/17 Admission Dx/Problem (Free Text): Admission for Irretractable back pain, UTI probable early Pyleonephritis. Functional Status: Reports: Pain Controlled, Tolerating Diet, Ambulating, Urinating Pain Score: 5 - Review of Systems General: Reports: No Symptoms HEENT: Reports: No Symptoms Pulmonary: Reports: No Symptoms Cardiovascular: Reports: No Symptoms Gastrointestinal: Reports: No Symptoms Genitourinary: Reports: Pain Musculoskeletal: Reports: Back Pain Skin: Reports: No Symptoms Neurological: Reports: Numbness, Difficulty Walking, Weakness Psychiatric: Reports: No Symptoms - Patient Data Vitals - Most Recent: Last Vital Signs Temp 36.4 C 07/03/17 13:22 Pulse 100 07/03/17 13:22 Resp 16 07/03/17 13:22 BP 140/70 07/03/17 13:48 Pulse Ox 96 07/03/17 13:22 Weight - Most Recent: 75.523 kg Lab Results Last 24 Hours: Laboratory Results - last 24 hr 07/03/17 07/03/17 07/03/17 Range/Units 15:35 15:35 15:35 WBC 9.1 (5.0-10.0) 10^3/uL RBC 4.44 (4.00-5.50) 10^6/uL Hgb 12.5 (12.0-16.0) g/dL Hct 38.2 (37.0-47.0) % MCV 86.0 (82.0-94.0) fL MCH 28.2 (27.0-32.0) pg MCHC 32.7 L (33.0-38.0) g/dL RDW Coeff of Carter 14.8 (11.0-15.0) % Plt Count 262 (150-400) 10^3/uL Neut % (Auto) 78.8 (35-85) % Lymph % (Auto) 13.0 (10-55) % [place] % (Auto) 7.3 (0-16) % Eos % (Auto) 0.7 (0-5) % Baso % (Auto) 0.2 (0-3) % Neut # (Auto) 7.16 H (1.80-7.00) 10^3/uL Lymph # (Auto) 1.18 (1.00-4.80) 10^3/uL [place] # (Auto) 0.66 (0.00-0.80) 10^3/uL Eos # (Auto) 0.06 (0.00-0.45) 10^3/uL Baso # (Auto) 0.02 10^3/uL PT 27.2 H (9.7-12.3) SEC INR 2.45 H (0.92-1.18) Sodium 140 (136-145) mEq/L Potassium 4.5 (3.5-5.0) mEq/L Chloride 102 (98-106) mEq/L Carbon Dioxide 29 (21-32) mmol/L BUN 21 H (7-18) mg/dL Creatinine 1.2 H (0.6-1.0) mg/dL Est Cr Clr Drug Dosing 27.74 mL/min Estimated GFR (MDRD) 43 L (>=60) mL/min Glucose 233 H D (75-99) mg/dL Hemoglobin A1c (4.8-6.2) % Calcium 9.1 (8.4-10.1) mg/dL Magnesium 1.9 (1.8-2.4) mg/dL Total Bilirubin 0.8 (0.0-1.0) mg/dL AST 24 (15-37) U/L ALT 21 (12-78) U/L Alkaline Phosphatase 55 (46-116) U/L C-Reactive Protein 2.0 H (0.2-0.8) mg/dL Total Protein 7.1 (6.4-8.2) g/dL Albumin 3.2 L (3.4-5.0) g/dL 07/03/17 Range/Units 15:35 WBC (5.0-10.0) 10^3/uL RBC (4.00-5.50) 10^6/uL Hgb (12.0-16.0) g/dL Hct (37.0-47.0) % MCV (82.0-94.0) fL MCH (27.0-32.0) pg MCHC (33.0-38.0) g/dL RDW Coeff of Carter (11.0-15.0) % Plt Count (150-400) 10^3/uL Neut % (Auto) (35-85) % Lymph % (Auto) (10-55) % [place] % (Auto) (0-16) % Eos % (Auto) (0-5) % Baso % (Auto) (0-3) % Neut # (Auto) (1.80-7.00) 10^3/uL Lymph # (Auto) (1.00-4.80) 10^3/uL [place] # (Auto) (0.00-0.80) 10^3/uL Eos # (Auto) (0.00-0.45) 10^3/uL Baso # (Auto) 10^3/uL PT (9.7-12.3) SEC INR (0.92-1.18) Sodium (136-145) mEq/L Potassium (3.5-5.0) mEq/L Chloride (98-106) mEq/L Carbon Dioxide (21-32) mmol/L BUN (7-18) mg/dL Creatinine (0.6-1.0) mg/dL Est Cr Clr Drug Dosing mL/min Estimated GFR (MDRD) (>=60) mL/min Glucose (75-99) mg/dL Hemoglobin A1c 7.2 H (4.8-6.2) % Calcium (8.4-10.1) mg/dL Magnesium (1.8-2.4) mg/dL Total Bilirubin (0.0-1.0) mg/dL AST (15-37) U/L ALT (12-78) U/L Alkaline Phosphatase (46-116) U/L C-Reactive Protein (0.2-0.8) mg/dL Total Protein (6.4-8.2) g/dL Albumin (3.4-5.0) g/dL Med Orders - Current: Current Medications Calcium Carbonate/Glycine (Tums) 500 mg PO BID [facility] Ceftriaxone Sodium (Rocephin) 1 gm IVPUSH Q24H [facility] Last Admin: 07/03/17 16:03 Dose: 1 gm Cholecalciferol (Vitamin D3) 1,000 units PO BID [facility] Cyclobenzaprine HCl (Flexeril) 10 mg PO TID PRN PRN Reason: Muscle Spasm Last Admin: 07/03/17 16:03 Dose: 10 mg Docusate Sodium (Colace) 100 mg PO BID PRN PRN Reason: Constipation Furosemide (Lasix) 40 mg PO DAILY [facility] Insulin Aspart (Novolog Mix 70-30) 35 unit SUBCUT ACBREAKFAST [facility] Insulin Aspart (Novolog Mix 70-30) 20 unit SUBCUT ACDINNER [facility] Last Admin: 07/03/17 17:33 Dose: 20 units Lisinopril (Prinivil) 2.5 mg PO DAILY [facility] Magnesium Oxide (Magnesium Oxide) 500 mg PO DAILY [facility] Metformin HCl (Glucophage) 500 mg PO QPM [facility] Nebivolol (Bystolic) 5 Mg Tab Own Med* * 0 mg PO DAILY [facility] Simvastatin (Zocor) 80 Mg Tab Own Med* * 0 mg PO BEDTIME [facility] Sodium Chloride (Saline Flush) 10 ml FLUSH ASDIRECTED PRN PRN Reason: Keep Vein Open Temazepam (Restoril) 15 mg PO BEDTIME PRN PRN Reason: Sleep Tramadol HCl (Ultram) 50 - 100 mg PO Q6H PRN PRN Reason: Pain Warfarin Sodium (Coumadin) 2.5 mg PO SuMoWeThSa@1200 [facility] Warfarin Sodium (Coumadin) 5 mg PO TuFr@1200 [facility] Discontinued Medications Tramadol HCl (Ultram) 50 - 100 mg PO Q4H PRN PRN Reason: Pain - Exam Quality Assessment: DVT Prophylaxis General: Alert, Oriented, Cooperative, Mild Distress HEENT: Pupils Equal, Pupils Reactive Neck: Supple Lungs: Clear to Auscultation, Normal Respiratory Effort Cardiovascular: Regular Rate, Regular Rhythm GI/Abdominal Exam: Soft, Non-Tender Back Exam: Normal Inspection, Decreased Range of Motion, Muscle Spasm, Vertebral Tenderness Extremities: Normal Inspection, Normal Range of Motion, No Pedal Edema, Normal Capillary Refill Peripheral Pulses: 2+: Radial (L), Radial (R), Dorsalis Pedis (L), Dorsalis Pedis (R) Skin: Warm, Dry, Intact Wound/Incisions: Healing Well Neurological: No New Focal Deficit, Strength Equal Bilateral, Reflexes Equal Bilateral, Sensation Intact Psy/Mental Status: Alert, Normal Affect, Normal Mood - Problem List & Annotations (1) Back pain SNOMED Code(s): 748529558 Code(s): M54.9 - DORSALGIA, UNSPECIFIED Status: Acute Current Visit: Yes Qualifiers: Chronicity: chronic Back pain laterality: bilateral Sciatica presence: unspecified whether sciatica present - Problem List Review Problem List Initiated/Reviewed/Updated: Yes - My Orders Last 24 Hours: My Active Orders 07/03/17 14:45 CULTURE URINE [RM] Routine 07/03/17 15:32 Cyclobenzaprine [Flexeril] 10 mg PO TID PRN 07/03/17 15:48 traMADol [Ultram] 50 - 100 mg PO Q6H PRN 07/03/17 15:49 Sodium Chloride 0.9% [Saline Flush] 10 ml FLUSH ASDIRECTED PRN Saline Lock Insert [OM.PC] Routine 07/03/17 16:00 cefTRIAXone [Rocephin] 1 gm IVPUSH Q24H - Assessment Assessment:: Radiology indicates L3 fracture is old and probably not cause of pain. T12 fracture is acute although stable with no noted neurological impairment. UTI noted Nitrites positive awaiting C and S Will continue pain management and refer to PT as needed. Dr. Bazan will follow patient as he is PCP - Plan Plan:: Will continue pain management and refer to PT as needed. Dr. Bazan will follow patient as he is PCP
[2017-07-03] MEDS: Calcium Carbonate 500 MG Tab.Chew PO SCH (19:34)
[2017-07-03] MEDS: Cholecalciferol (Vitamin D3) 1,000 Unit Tab PO SCH (19:35)
[2017-07-03] MEDS: Docusate Sodium 100 MG Cap PO PRN (19:35)
[2017-07-03] MEDS ORDERED: SIMVASTATIN 80 MG PO SCH (20:00)
[2017-07-03] MEDS ORDERED: metFORMIN 500 MG Tab **OWN MED PO SCH (20:00)
[2017-07-03] MEDS: traMADol 50 MG Tab PO PRN (23:07)
[2017-07-04] MEDS ORDERED: Insuln Aspart Prot/Insulin Aspart 100 Units/ML 3 ML FlexPen SUBCUT SCH ×2 (07:00→08:00)
[2017-07-04] MEDS: Cyclobenzaprine 10 MG Tab PO PRN (07:23)
[2017-07-04] MEDS: Docusate Sodium 100 MG Cap PO PRN (07:23)
[2017-07-04] MEDS: Furosemide 40 MG Tab PO SCH (07:24)
[2017-07-04] MEDS: NEBIVOLOL 10 MG PO SCH (07:26)
[2017-07-04] MEDS: Lisinopril 5 MG TAB PO SCH (07:27)
[2017-07-04] MEDS: Cholecalciferol (Vitamin D3) 1,000 Unit Tab PO SCH ×2 (07:40→19:33)
[2017-07-04] MEDS: Calcium Carbonate 500 MG Tab.Chew PO SCH ×2 (07:40→19:33)
[2017-07-04] MEDS: Insuln Aspart Prot/Insulin Aspart 100 Units/ML 3 ML FlexPen SUBCUT SCH ×2 (08:04→17:34)
[2017-07-04] MEDS: cefTRIAXone 1 GM Vial IVPUSH SCH (08:15)
--- NOTE | 2017-07-04 09:02 | PN ---
DATE: 07/04/2017 S: Leslie Calloway came in with a UTI, severe back pain from a recent compression fracture at T12. O: NECK: Supple. CHEST: Clear. CARDIAC: Sounds are good. ABDOMEN: Soft. MUSCULOSKELETAL: Tender over the T12 area. ASSESSMENT: URINARY TRACT INFECTION, COMPRESSION FRACTURE, AND DIABETES. P: Physical therapy, pain control, and IV antibiotics. DENISE/VERONICA /[id number]
[2017-07-04] MEDS: traMADol 50 MG Tab PO PRN ×2 (10:14→20:50)
[2017-07-04] MEDS: Warfarin 2.5 MG Tab PO SCH (11:49)
[2017-07-04] MEDS: metFORMIN 500 MG Tab PO SCH (17:33)
[2017-07-04] MEDS ORDERED: Bacitracin/Neomycin/Polymyxin B Oint 0.9 GM U/D Packet TOP PRN (18:45)
[2017-07-04] MEDS ORDERED: Bacitracin/Neomycin/Polymyxin B Oint 0.9 GM U/D Packet ONE (18:52)
[2017-07-04] MEDS: Simvastatin 40 MG Tab PO SCH (19:33)
[2017-07-05] MEDS: Lisinopril 5 MG TAB PO SCH (07:55)
[2017-07-05] MEDS: cefTRIAXone 1 GM Vial IVPUSH SCH (07:57)
[2017-07-05] MEDS: Cholecalciferol (Vitamin D3) 1,000 Unit Tab PO SCH ×2 (07:57→19:20)
[2017-07-05] MEDS: Calcium Carbonate 500 MG Tab.Chew PO SCH ×2 (07:58→19:21)
[2017-07-05] MEDS: Furosemide 40 MG Tab PO SCH (07:58)
[2017-07-05] MEDS: NEBIVOLOL 10 MG PO SCH (08:01)
[2017-07-05] MEDS: Insuln Aspart Prot/Insulin Aspart 100 Units/ML 3 ML FlexPen SUBCUT SCH ×2 (08:06→17:21)
[2017-07-05] MEDS: traMADol 50 MG Tab PO PRN ×2 (09:02→19:20)
--- NOTE | 2017-07-05 10:18 | PN ---
DATE: 07/05/2017 S: Leslie Calloway came in with UTI, thoracic compression fracture. O: NECK: Supple. CHEST: Clear. CARDIAC: Regular. ASSESSMENT: SHE IS STILL HAVING A FAIR AMOUNT OF PAIN, BUT GETTING BETTER WITH PT. P: Continue IV antibiotics and PT. DENISE/VERONICA /[id number]
[2017-07-05] MEDS: Docusate Sodium 100 MG Cap PO PRN (11:06)
[2017-07-05] MEDS ORDERED: Warfarin 5 MG Tab PO SCH (12:00)
[2017-07-05] MEDS: metFORMIN 500 MG Tab PO SCH (17:21)
[2017-07-05] MEDS: Simvastatin 40 MG Tab PO SCH (19:20)
[2017-07-06] MEDS: cefTRIAXone 1 GM Vial IVPUSH SCH (07:42)
[2017-07-06] MEDS: Cholecalciferol (Vitamin D3) 1,000 Unit Tab PO SCH ×2 (07:46→19:24)
[2017-07-06] MEDS: Furosemide 40 MG Tab PO SCH (07:46)
[2017-07-06] MEDS: traMADol 50 MG Tab PO PRN ×3 (07:46→20:23)
[2017-07-06] MEDS: Lisinopril 5 MG TAB PO SCH (07:46)
[2017-07-06] MEDS: NEBIVOLOL 10 MG PO SCH (07:48)
[2017-07-06] MEDS: Calcium Carbonate 500 MG Tab.Chew PO SCH ×2 (07:50→19:24)
[2017-07-06] MEDS: Insuln Aspart Prot/Insulin Aspart 100 Units/ML 3 ML FlexPen SUBCUT SCH ×2 (07:51→17:16)
--- NOTE | 2017-07-06 09:10 | PN ---
DATE: 07/06/2017 S: Leslie Calloway is in with a UTI and compression fracture, acute. O: NECK: Supple. CHEST: Clear. CARDIAC: Regular. BACK: Still lot of tenderness down in that lower back. ASSESSMENT: URINARY TRACT INFECTION AND COMPRESSION FRACTURE. P: Continue IV antibiotics and PT. DENISE/VERONICA /[id number]
[2017-07-06] MEDS: Warfarin 2.5 MG Tab PO SCH (12:03)
[2017-07-06] MEDS: metFORMIN 500 MG Tab PO SCH (17:16)
[2017-07-06] MEDS: Simvastatin 40 MG Tab PO SCH (19:24)
[2017-07-07] MEDS: traMADol 50 MG Tab PO PRN (07:18)
[2017-07-07] MEDS: Calcium Carbonate 500 MG Tab.Chew PO SCH (07:18)
[2017-07-07] MEDS: cefTRIAXone 1 GM Vial IVPUSH SCH (07:18)
[2017-07-07] MEDS: Cholecalciferol (Vitamin D3) 1,000 Unit Tab PO SCH (07:20)
[2017-07-07] MEDS: Furosemide 40 MG Tab PO SCH (07:20)
[2017-07-07] MEDS: NEBIVOLOL 10 MG PO SCH (07:21)
[2017-07-07] MEDS: Lisinopril 5 MG TAB PO SCH (07:22)
[2017-07-07] MEDS: Insuln Aspart Prot/Insulin Aspart 100 Units/ML 3 ML FlexPen SUBCUT SCH (07:23)
[2017-07-07 07:26] VITALS: BP 106/57
[2017-07-07] MEDS: Warfarin 2.5 MG Tab PO SCH (11:50)
--- NOTE | 2017-07-08 07:17 | DISCH ---
HOSPITAL COURSE: Leslie Calloway is an elderly female who came in with the UTI, acute compression fracture of T12. She admitted to the hospital for pain control, intravenous antibiotics. At the time of discharge, still having a fair amount of pain and has seen physical therapy. Lab here in the hospital, everything looked pretty good other than the UTI. Blood sugars have been stable. DISPOSITION: The patient now discharged to the swing bed. DISCHARGE INSTRUCTIONS: Continue IV antibiotics and PT. DISCHARGE MEDICATIONS: Hospital medications. DISCHARGE DIAGNOSIS: 1. URINARY TRACT INFECTION. 2. ACUTE THORACIC COMPRESSION FRACTURE. 3. DIABETES MELLITUS. 4. HYPERLIPIDEMIA. 5. HYPERTENSION. DENISE/VERONICA /[id number]
== END 2017-07-07 14:09 | disposition swing bed (61) | DRG 552 ==
LOC: CC.ED 13:20 → UNDOADMOB 15:17 → CC.MS 15:17 → OBSVTOIN 07-04 10:02
PROVIDERS: ADMIT Nurse Practitioner; ATTEND General Practice
DX: M54.5 Low back pain (principal); N28.9 Disorder of kidney and ureter, unspecified; S22.089A Unspecified fracture of T11-T12 vertebra, initial encounter for closed fracture; S32.039A Unspecified fracture of third lumbar vertebra, initial encounter for closed fracture; N39.0 Urinary tract infection, site not specified; I25.10 Atherosclerotic heart disease of native coronary artery without angina pectoris; E78.00 Pure hypercholesterolemia, unspecified; W10.9XXA Fall (on) (from) unspecified stairs and steps, initial encounter; Y92.019 Unspecified place in single-family (private) house as the place of occurrence of the external cause; I25.2 Old myocardial infarction; Z79.899 Other long term (current) drug therapy; Z79.01 Long term (current) use of anticoagulants; E11.9 Type 2 diabetes mellitus without complications; E78.5 Hyperlipidemia, unspecified; I10 Essential (primary) hypertension
CPT/HCPCS: 36415; 72131; 80053; 81001; 82962; 83036; 83735; 85025; 85610; 86140; 87086; 99284; A9270 ×12; J0696 ×2; J1815; 87088; 87186; 96374; 96376; 97110-GP; 97161-GP; 97530-GP; 99220; G0378

== ENCOUNTER 2017-07-07 14:12 | Inpatient (IN) | payer MEDICARE, BC ==
[2017-07-07] MEDS ORDERED: Cyclobenzaprine 10 MG Tab PO PRN ×2 (14:57→16:27)
[2017-07-07] MEDS ORDERED: Sodium Chloride 0.9% 10 ML Syringe FLUSH PRN ×4 (14:57→16:27)
[2017-07-07] MEDS ORDERED: Docusate Sodium 100 MG Cap PO PRN ×2 (14:57→16:27)
[2017-07-07] MEDS ORDERED: Temazepam 15 MG Cap PO PRN ×2 (14:57→16:27)
[2017-07-07] MEDS ORDERED: Bacitracin/Neomycin/Polymyxin B Oint 0.9 GM U/D Packet TOP PRN ×2 (14:57→16:27)
[2017-07-07] MEDS: Acetaminophen/HYDROcodone 325-5 MG Tab PO PRN (15:19)
[2017-07-07] MEDS ORDERED: traMADol 50 MG Tab PO PRN (16:27)
[2017-07-07] MEDS ORDERED: metFORMIN 500 MG Tab PO SCH (17:30)
[2017-07-07] MEDS ORDERED: Insuln Aspart Prot/Insulin Aspart 100 Units/ML 3 ML FlexPen SUBCUT SCH (17:30)
[2017-07-07] MEDS: Insuln Aspart Prot/Insulin Aspart 100 Units/ML 3 ML FlexPen SUBCUT SCH (17:45)
[2017-07-07] MEDS: metFORMIN 500 MG Tab PO SCH (17:45)
[2017-07-07] MEDS: Calcium Carbonate 500 MG Tab.Chew PO SCH (19:34)
[2017-07-07] MEDS: Cholecalciferol (Vitamin D3) 1,000 Unit Tab PO SCH (19:34)
[2017-07-07] MEDS: Simvastatin 40 MG Tab PO SCH (19:34)
[2017-07-07] MEDS ORDERED: Simvastatin 40 MG Tab PO SCH (20:00)
[2017-07-07] MEDS ORDERED: Cholecalciferol (Vitamin D3) 1,000 Unit Tab PO SCH (20:00)
[2017-07-07] MEDS ORDERED: Calcium Carbonate 500 MG Tab.Chew PO SCH (20:00)
[2017-07-08] MEDS: Cholecalciferol (Vitamin D3) 1,000 Unit Tab PO SCH ×2 (07:31→19:57)
[2017-07-08] MEDS: Furosemide 40 MG Tab PO SCH (07:32)
[2017-07-08] MEDS: Calcium Carbonate 500 MG Tab.Chew PO SCH ×2 (07:32→19:57)
[2017-07-08] MEDS: Lisinopril 5 MG Tab PO SCH (07:33)
[2017-07-08] MEDS: NEBIVOLOL 10 MG PO SCH (07:34)
[2017-07-08] MEDS: cefTRIAXone 1 GM Vial IVPUSH SCH (07:38)
[2017-07-08] MEDS: Acetaminophen/HYDROcodone 325-5 MG Tab PO PRN ×2 (07:49→17:10)
[2017-07-08] MEDS ORDERED: Furosemide 40 MG Tab PO SCH (08:00)
[2017-07-08] MEDS ORDERED: cefTRIAXone 1 GM Vial IVPUSH SCH (08:00)
[2017-07-08] MEDS ORDERED: NEBIVOLOL PO SCH (08:00)
[2017-07-08] MEDS ORDERED: Lisinopril 5 MG Tab PO SCH (08:00)
[2017-07-08] MEDS ORDERED: Insuln Aspart Prot/Insulin Aspart 100 Units/ML 3 ML FlexPen SUBCUT SCH (08:00)
[2017-07-08] MEDS: Insuln Aspart Prot/Insulin Aspart 100 Units/ML 3 ML FlexPen SUBCUT SCH ×2 (08:04→17:22)
[2017-07-08] MEDS: traMADol 50 MG Tab PO PRN (11:29)
[2017-07-08] MEDS ORDERED: Warfarin 5 MG Tab PO SCH (12:00)
[2017-07-08] MEDS: Warfarin 5 MG Tab PO SCH (12:02)
[2017-07-08] MEDS: metFORMIN 500 MG Tab PO SCH (17:23)
[2017-07-08] MEDS: Simvastatin 40 MG Tab PO SCH (19:57)
[2017-07-09] MEDS: Acetaminophen/HYDROcodone 325-5 MG Tab PO PRN ×3 (08:00→20:33)
[2017-07-09] MEDS: Calcium Carbonate 500 MG Tab.Chew PO SCH ×2 (08:02→19:28)
[2017-07-09] MEDS: Cholecalciferol (Vitamin D3) 1,000 Unit Tab PO SCH ×2 (08:02→19:28)
[2017-07-09] MEDS: Furosemide 40 MG Tab PO SCH (08:03)
[2017-07-09] MEDS: cefTRIAXone 1 GM Vial IVPUSH SCH (08:03)
[2017-07-09] MEDS: Lisinopril 5 MG Tab PO SCH (08:03)
[2017-07-09] MEDS: Insuln Aspart Prot/Insulin Aspart 100 Units/ML 3 ML FlexPen SUBCUT SCH ×2 (08:11→17:29)
[2017-07-09] MEDS: NEBIVOLOL 10 MG PO SCH (08:12)
[2017-07-09] MEDS ORDERED: Warfarin 2.5 MG Tab PO SCH (12:00)
[2017-07-09] MEDS: Warfarin 2.5 MG Tab PO SCH (12:01)
[2017-07-09] MEDS: metFORMIN 500 MG Tab PO SCH (17:29)
[2017-07-09] MEDS: Simvastatin 40 MG Tab PO SCH (19:28)
[2017-07-10] MEDS: cefTRIAXone 1 GM Vial IVPUSH SCH (07:48)
[2017-07-10] MEDS: Lisinopril 5 MG Tab PO SCH (07:48)
[2017-07-10] MEDS: Acetaminophen/HYDROcodone 325-5 MG Tab PO PRN ×4 (07:49→21:51)
[2017-07-10] MEDS: Calcium Carbonate 500 MG Tab.Chew PO SCH ×2 (07:49→19:44)
[2017-07-10] MEDS: Furosemide 40 MG Tab PO SCH (07:49)
[2017-07-10] MEDS: Cholecalciferol (Vitamin D3) 1,000 Unit Tab PO SCH ×2 (07:49→19:44)
[2017-07-10] MEDS: Insuln Aspart Prot/Insulin Aspart 100 Units/ML 3 ML FlexPen SUBCUT SCH ×2 (07:52→17:37)
[2017-07-10] MEDS: NEBIVOLOL 10 MG PO SCH (08:00)
[2017-07-10] MEDS: Warfarin 2.5 MG Tab PO SCH (12:03)
[2017-07-10] MEDS: metFORMIN 500 MG Tab PO SCH (17:36)
[2017-07-10] MEDS: Simvastatin 40 MG Tab PO SCH (19:44)
[2017-07-11] MEDS: Lisinopril 5 MG Tab PO SCH (08:09)
[2017-07-11] MEDS: Cholecalciferol (Vitamin D3) 1,000 Unit Tab PO SCH ×2 (08:10→19:35)
[2017-07-11] MEDS: Acetaminophen/HYDROcodone 325-5 MG Tab PO PRN ×2 (08:10→13:58)
[2017-07-11] MEDS: Furosemide 40 MG Tab PO SCH (08:10)
[2017-07-11] MEDS: Calcium Carbonate 500 MG Tab.Chew PO SCH ×2 (08:10→19:36)
[2017-07-11] MEDS: cefTRIAXone 1 GM Vial IVPUSH SCH (08:11)
[2017-07-11] MEDS: NEBIVOLOL 10 MG PO SCH (08:15)
[2017-07-11] MEDS: Insuln Aspart Prot/Insulin Aspart 100 Units/ML 3 ML FlexPen SUBCUT SCH ×2 (08:17→17:30)
[2017-07-11] MEDS: Warfarin 2.5 MG Tab PO SCH (11:47)
[2017-07-11] MEDS: traMADol 50 MG Tab PO PRN (16:16)
[2017-07-11] MEDS: metFORMIN 500 MG Tab PO SCH (17:31)
[2017-07-11] MEDS: Simvastatin 40 MG Tab PO SCH (19:36)
[2017-07-12] MEDS: Calcium Carbonate 500 MG Tab.Chew PO SCH ×2 (08:11→19:40)
[2017-07-12] MEDS: Cholecalciferol (Vitamin D3) 1,000 Unit Tab PO SCH ×2 (08:11→19:40)
[2017-07-12] MEDS: Furosemide 40 MG Tab PO SCH (08:12)
[2017-07-12] MEDS: Lisinopril 5 MG Tab PO SCH (08:12)
[2017-07-12] MEDS: NEBIVOLOL 10 MG PO SCH (08:13)
[2017-07-12] MEDS: Acetaminophen/HYDROcodone 325-5 MG Tab PO PRN ×2 (08:13→13:56)
[2017-07-12] MEDS: Insuln Aspart Prot/Insulin Aspart 100 Units/ML 3 ML FlexPen SUBCUT SCH ×2 (08:15→17:19)
[2017-07-12] MEDS: cefTRIAXone 1 GM Vial IVPUSH SCH (08:23)
[2017-07-12] MEDS: Warfarin 5 MG Tab PO SCH (11:48)
[2017-07-12] MEDS ORDERED: Tuberculin, PPD 5 Units/0.1 ML 1 ML MDV IDERM ONE (14:11)
[2017-07-12] MEDS: metFORMIN 500 MG Tab PO SCH (17:18)
[2017-07-12] MEDS: traMADol 50 MG Tab PO PRN (17:23)
[2017-07-12] MEDS: Simvastatin 40 MG Tab PO SCH (19:40)
[2017-07-13] MEDS: Furosemide 40 MG Tab PO SCH (07:46)
[2017-07-13] MEDS: Lisinopril 5 MG Tab PO SCH (07:48)
[2017-07-13] MEDS: Calcium Carbonate 500 MG Tab.Chew PO SCH (07:49)
[2017-07-13] MEDS: Cholecalciferol (Vitamin D3) 1,000 Unit Tab PO SCH (07:49)
[2017-07-13] MEDS: cefTRIAXone 1 GM Vial IVPUSH SCH (07:49)
[2017-07-13] MEDS: NEBIVOLOL 10 MG PO SCH (07:50)
[2017-07-13] MEDS: Insuln Aspart Prot/Insulin Aspart 100 Units/ML 3 ML FlexPen SUBCUT SCH (07:51)
[2017-07-13 07:53] VITALS: BP 147/95
[2017-07-13] MEDS: Acetaminophen/HYDROcodone 325-5 MG Tab PO PRN (07:57)
--- NOTE | 2017-07-13 11:28 | DISCH ---
HISTORY: Leslie Calloway admitted to acute care with acute thoracic compression fracture and UTI. She started on IV antibiotics, PT/OT and pain control. At the time of discharge, only fair amount of pain from the compression fracture. Lab here in the hospital, everything looked good with the positive UTI. Blood sugars remained stable. INRs remained stable. DISPOSITION: The patient now discharged to [facility] [place] the [facility] PT/OT. DISCHARGE MEDICATIONS: Hospital medications except Rocephin. DISCHARGE DIAGNOSIS: 1. URINARY TRACT INFECTION. 2. COMPRESSION FRACTURE. 3. ATRIAL FIBRILLATION. 4. DIABETES MELLITUS. 5. HYPERLIPIDEMIA. 6. HYPERTENSION. DENISE/VERONICA /[id number]
== END 2017-07-13 09:50 | DRG 543 ==
LOC: CC.MS 14:12 → UNDOADMIN 14:12 → CC.MS 14:57
PROVIDERS: ADMIT General Practice; ATTEND General Practice
DX: M48.54XA Collapsed vertebra, not elsewhere classified, thoracic region, initial encounter for fracture (principal); N39.0 Urinary tract infection, site not specified; I48.91 Unspecified atrial fibrillation; E11.9 Type 2 diabetes mellitus without complications; E78.5 Hyperlipidemia, unspecified; I10 Essential (primary) hypertension; W10.9XXA Fall (on) (from) unspecified stairs and steps, initial encounter; Y92.009 Unspecified place in unspecified non-institutional (private) residence as the place of occurrence of the external cause; Z79.82 Long term (current) use of aspirin; Z79.84 Long term (current) use of oral hypoglycemic drugs; Z79.4 Long term (current) use of insulin; Z79.899 Other long term (current) drug therapy; Z79.01 Long term (current) use of anticoagulants; I25.10 Atherosclerotic heart disease of native coronary artery without angina pectoris; K21.9 Gastro-esophageal reflux disease without esophagitis
CPT/HCPCS: 36415; 82962; 85610; 86580; 97110-GP; A9270-GY; J0696; J1815-GY

== ENCOUNTER 2019-07-13 10:41 | Observation (INO) | payer MEDICARE, BC ==
[2019-07-13 11:16] LABS: CHLORIDE,CL 103 mEq/L (98-106); SODIUM,NA 138 mEq/L (136-145)
[2019-07-13] MEDS ORDERED: Sodium Chloride 0.9% 10 ML Syringe FLUSH PRN (11:47)
[2019-07-13] MEDS ORDERED: SYMBICORT INH PRN (16:32)
[2019-07-13] MEDS: APIXABAN 5 MG PO SCH (19:30)
[2019-07-13] MEDS: Albuterol 8 GM Inhaler INH SCH (19:33)
[2019-07-13] MEDS: Insulin NPH HUM/REG Insulin HM 100 UNIT/ML 3 ML Vial SQ SCH (19:45)
--- NOTE | 2019-07-13 21:27 | PCM.SN ---
- Free Text/Narrative Note: Leanne PARHAM informed me of patient elevated troponin. I reviewed, it elevated last draw, but still in indeterminant range. Pernell another troponin, which actually decreased, still indeterminant range. EKG is rate 104 a-fib with RVR. Patient on monitor rate fluctuates from 100-112. Patient reports that upon admission her dyspnea has completely resolved. She reports her dyspnea is no longer present. I discussed with the patient speaking to a recharger about her previous elevation in troponin, with now a drop and her a-fib. I asked her which hospital recharger she would like me to speak too. Her response is that she does not want me to call any heart doctor or any other hospitals. She would like to stay here in [place]. She also reports she no longer wants any more lab draws tonight. She reports that she would like to just let her lay in bed. She reports that she does not want much done. She reports that her shortness of breath has resolved, she was fine walking to the bathroom. She reports she will take a pill for her HR. I did prescribe her metoprolol 12.5mg BID. Patient is aware that she may have had cardiac damage with elevated troponin from norm. She reports and knows that she will someday, and she signed a code sheet not to do anything.
[2019-07-13] MEDS ORDERED: Metoprolol Tartrate 25 MG Tab PO SCH (21:30)
[2019-07-14] MEDS: Furosemide 40 MG Tab **OWN MED PO SCH (08:07)
[2019-07-14] MEDS: Insulin NPH HUM/REG Insulin HM 100 UNIT/ML 3 ML Vial SQ SCH ×2 (08:07→20:19)
[2019-07-14] MEDS: APIXABAN 5 MG PO SCH ×2 (08:07→19:27)
[2019-07-14] MEDS: Simvastatin 40 MG Tab PO SCH (08:13)
[2019-07-14] MEDS: Metoprolol Tartrate 25 MG Tab PO SCH ×2 (08:14→19:35)
[2019-07-14] MEDS: Albuterol 8 GM Inhaler INH SCH ×4 (08:14→19:27)
[2019-07-14] MEDS ORDERED: Levofloxacin 500 MG Tab PO ONE ×2 (09:00→09:15)
[2019-07-14] MEDS: Non-Formulary Medication 1 Each (Budesonide/Formoterol 2 PUFF) INH SCH ×2 (10:15→19:37)
--- NOTE | 2019-07-14 17:06 | PCM.PN ---
- General Info Date of Service: 07/14/19 Functional Status: Reports: Pain Controlled, Tolerating Diet, Ambulating, Urinating - Review of Systems General: Reports: No Symptoms HEENT: Reports: No Symptoms Pulmonary: Reports: No Symptoms. Denies: Shortness of Breath, Pleuritic Chest Pain, Cough, Sputum, Hemoptysis, Wheezing Cardiovascular: Reports: No Symptoms Gastrointestinal: Reports: No Symptoms Genitourinary: Reports: No Symptoms Musculoskeletal: Reports: No Symptoms Skin: Reports: No Symptoms Neurological: Reports: No Symptoms Psychiatric: Reports: No Symptoms - Patient Data Vitals - Most Recent: Last Vital Signs Temp 98.9 F 07/14/19 16:00 Pulse 92 07/14/19 16:00 Resp 20 07/14/19 16:00 BP 98/46 L 07/14/19 16:00 Pulse Ox 98 07/14/19 16:00 Weight - Most Recent: 147 lb 9.6 oz Lab Results Last 24 Hours: Laboratory Results - last 24 hr 07/13/19 07/13/19 07/13/19 Range/Units 17:12 19:40 20:40 WBC (5.0-10.0) 10^3/uL RBC (4.00-5.50) 10^6/uL Hgb (12.0-16.0) g/dL Hct (37.0-47.0) % MCV (82.0-94.0) fL MCH (27.0-32.0) pg MCHC (33.0-38.0) g/dL RDW Coeff of Carter (11.0-15.0) % Plt Count (150-400) 10^3/uL Neut % (Auto) (35-85) % Lymph % (Auto) (10-55) % [place] % (Auto) (0-16) % Eos % (Auto) (0-5) % Baso % (Auto) (0-3) % Neut # (Auto) (1.80-7.00) 10^3/uL Lymph # (Auto) (1.00-4.80) 10^3/uL [facility] # (Auto) (0.00-0.80) 10^3/uL Eos # (Auto) (0.00-0.45) 10^3/uL Baso # (Auto) 10^3/uL Sodium (136-145) mEq/L Potassium (3.5-5.0) mEq/L Chloride (98-106) mEq/L Carbon Dioxide (21-32) mmol/L BUN (7-18) mg/dL Creatinine (0.6-1.0) mg/dL Est Cr Clr Drug Dosing mL/min Estimated GFR (MDRD) (>=60) mL/min Glucose (75-99) mg/dL POC Glucose 289 H 339 H (75-105) mg/dl Calcium (8.4-10.1) mg/dL Troponin I 0.148 H (0.00-0.06) ng/mL NT-Pro-B Natriuret Pep (0-1000) pg/mL 07/14/19 07/14/19 07/14/19 Range/Units 06:50 06:50 06:50 WBC 7.4 (5.0-10.0) 10^3/uL RBC 4.09 (4.00-5.50) 10^6/uL Hgb 11.2 L (12.0-16.0) g/dL Hct 35.4 L (37.0-47.0) % MCV 86.6 (82.0-94.0) fL MCH 27.4 (27.0-32.0) pg MCHC 31.6 L (33.0-38.0) g/dL RDW Coeff of Carter 16.4 H (11.0-15.0) % Plt Count 299 (150-400) 10^3/uL Neut % (Auto) 60.6 (35-85) % Lymph % (Auto) 24.5 (10-55) % [place] % (Auto) 11.3 (0-16) % Eos % (Auto) 3.2 (0-5) % Baso % (Auto) 0.4 (0-3) % Neut # (Auto) 4.50 (1.80-7.00) 10^3/uL Lymph # (Auto) 1.82 (1.00-4.80) 10^3/uL [place] # (Auto) 0.84 H (0.00-0.80) 10^3/uL Eos # (Auto) 0.24 (0.00-0.45) 10^3/uL Baso # (Auto) 0.03 10^3/uL Sodium 140 (136-145) mEq/L Potassium 3.4 L (3.5-5.0) mEq/L Chloride 105 (98-106) mEq/L Carbon Dioxide 28 (21-32) mmol/L BUN 17 (7-18) mg/dL Creatinine 1.2 H (0.6-1.0) mg/dL Est Cr Clr Drug Dosing 28.09 mL/min Estimated GFR (MDRD) 43 L (>=60) mL/min Glucose 137 H D (75-99) mg/dL POC Glucose (75-105) mg/dl Calcium 9.0 (8.4-10.1) mg/dL Troponin I 0.114 H (0.00-0.06) ng/mL NT-Pro-B Natriuret Pep 1121 H (0-1000) pg/mL 07/14/19 07/14/19 Range/Units 07:37 11:37 WBC (5.0-10.0) 10^3/uL RBC (4.00-5.50) 10^6/uL Hgb (12.0-16.0) g/dL Hct (37.0-47.0) % MCV (82.0-94.0) fL MCH (27.0-32.0) pg MCHC (33.0-38.0) g/dL RDW Coeff of Carter (11.0-15.0) % Plt Count (150-400) 10^3/uL Neut % (Auto) (35-85) % Lymph % (Auto) (10-55) % [facility] % (Auto) (0-16) % Eos % (Auto) (0-5) % Baso % (Auto) (0-3) % Neut # (Auto) (1.80-7.00) 10^3/uL Lymph # (Auto) (1.00-4.80) 10^3/uL [facility] # (Auto) (0.00-0.80) 10^3/uL Eos # (Auto) (0.00-0.45) 10^3/uL Baso # (Auto) 10^3/uL Sodium (136-145) mEq/L Potassium (3.5-5.0) mEq/L Chloride (98-106) mEq/L Carbon Dioxide (21-32) mmol/L BUN (7-18) mg/dL Creatinine (0.6-1.0) mg/dL Est Cr Clr Drug Dosing mL/min Estimated GFR (MDRD) (>=60) mL/min Glucose (75-99) mg/dL POC Glucose 149 H 267 H (75-105) mg/dl Calcium (8.4-10.1) mg/dL Troponin I (0.00-0.06) ng/mL NT-Pro-B Natriuret Pep (0-1000) pg/mL Med Orders - Current: Current Medications Albuterol (Ventolin Hfa) 0 gm INH QID [facility] Last Admin: 07/14/19 14:13 Dose: 2 puff Apixaban (Eliquis) 5 mg PO BID [facility] Last Admin: 07/14/19 08:07 Dose: 5 mg Furosemide (Lasix) 40 mg PO DAILY [facility] Last Admin: 07/14/19 08:07 Dose: 40 mg Insulin NPH Beef/Pork (Humulin 70-30) 23 unit SQ DAILY@2000 [facility] Last Admin: 07/13/19 19:45 Dose: 23 unit Insulin NPH Beef/Pork (Humulin 70-30) 38 unit SQ DAILY@0800 [facility] Last Admin: 07/14/19 08:07 Dose: 38 unit Levofloxacin (Levaquin) 250 mg PO DAILY [facility] Magnesium Oxide (Magnesium Oxide) 500 mg PO DAILY [facility] Last Admin: 07/14/19 08:13 Dose: 500 mg Metoprolol Tartrate (Lopressor) 12.5 mg PO BID [facility] Last Admin: 07/14/19 08:14 Dose: 12.5 mg Non-Formulary Medication (Budesonide/Formoterol) 2 puff INH BID [facility] Last Admin: 07/14/19 10:15 Dose: Not Given Simvastatin (Zocor) 80 mg PO DAILY [facility] Last Admin: 07/14/19 08:13 Dose: 80 mg Sodium Chloride (Saline Flush) 10 ml FLUSH ASDIRECTED PRN PRN Reason: Keep Vein Open Discontinued Medications Levofloxacin (Levaquin) 500 mg PO ONETIME ONE Stop: 07/14/19 09:01 Last Admin: 07/14/19 10:15 Dose: 500 mg Levofloxacin (Levaquin) 500 mg PO ONETIME ONE Stop: 07/14/19 09:16 Last Admin: 07/14/19 10:15 Dose: Not Given Metoprolol Tartrate (Lopressor) 12.5 mg PO Q12H [facility] Last Admin: 07/13/19 21:37 Dose: 12.5 mg Symbicort 4.5-160 ([facility]) 0 puff INH BID PRN PRN Reason: Shortness of Breath - Exam General: Alert, Oriented, Cooperative, No Acute Distress Neck: Supple, Trachea Midline, No JVD Lungs: Clear to Auscultation, Normal Respiratory Effort, Decreased Breath Sounds (mild RLL). No: Crackles, Rales, Rhonchi, Rub, Stridor, Wheezing Cardiovascular: Regular Rate, Irregular Rhythm, Murmurs (Grade 3/5) GI/Abdominal Exam: Normal Bowel Sounds, Soft, Non-Tender, No Organomegaly, No Distention, No Abnormal Bruit, No Mass, Pelvis Stable Back Exam: Normal Inspection, Full Range of Motion Extremities: Normal Inspection, Normal Range of Motion, Non-Tender, No Pedal Edema, Normal Capillary Refill Peripheral Pulses: 2+: Radial (L), Radial (R), Posterior Tibial (L), Posterior Tibial (R), Dorsalis Pedis (L), Dorsalis Pedis (R) Skin: Warm, Dry, Intact Neurological: No New Focal Deficit Psy/Mental Status: Alert, Normal Affect, Normal Mood - Problem List Review Problem List Initiated/Reviewed/Updated: Yes - My Orders Last 24 Hours: My Active Orders 07/14/19 08:00 Budesonide/Formoterol 2 puff INH BID Metoprolol Tartrate [Lopressor] 12.5 mg PO BID 07/15/19 05:00 BASIC METABOLIC PANEL,BMP [CHEM] DAILY CBC WITH AUTO DIFF [HEME] DAILY PRO B-TYPE NATRIUR PEPT,BNPPRO [CHEM] DAILY 07/15/19 08:00 levoFLOXacin [Levaquin] 250 mg PO DAILY - Plan Plan:: This patient is an 83 year old female that was admitted yesterday for dyspnea. Patient last night was rapid uncontrolled a-fib. I started on Metoprolol. The patient reported yesterday evening that her dyspnea had resolved. She reports today that she still has no dyspnea. She denies esqueda, dizziness, n, v, d, f, cough. The patient CXR that was performed radiologist read possible aspiration vs atelectasis. With patient dyspnea, and CXR read, will start her on Levaquin PO to cover. The patient HR has respnded well and is controlled a-fib today of 80-90 HR. Will continue admit today, plan to discharge home tomorrow. Patient labs today potassium 3.7, CR 1.2, BNP 1165. Today labs are potassium 3.4, CR 1.2 , BNP 1121. Have seen a decrease in her troponins, indeterminant range.
[2019-07-15] MEDS ORDERED: Levofloxacin 500 MG Tab PO SCH (08:00)
[2019-07-15] MEDS: Insulin NPH HUM/REG Insulin HM 100 UNIT/ML 3 ML Vial SQ SCH (08:17)
[2019-07-15] MEDS: Furosemide 40 MG Tab **OWN MED PO SCH (08:18)
[2019-07-15] MEDS: APIXABAN 5 MG PO SCH (08:18)
[2019-07-15] MEDS: Albuterol 8 GM Inhaler INH SCH (08:19)
[2019-07-15] MEDS: Non-Formulary Medication 1 Each (Budesonide/Formoterol 2 PUFF) INH SCH (08:19)
[2019-07-15] MEDS: Simvastatin 40 MG Tab PO SCH (08:27)
[2019-07-15] MEDS: Metoprolol Tartrate 25 MG Tab PO SCH (08:27)
--- NOTE | 2019-07-15 11:22 | PCM.DCSUM1 ---
Discharge Summary - Hospital Course HPI Initial Comments: This patient is an 83 year old female that was admitted for dyspnea. Patient has been controlled a-fib rate less than 100 since starting metoprolol. The patient reported that her dyspnea has resolved. She reports today that she still has no dyspnea. She denies esqueda, dizziness, n, v, d, f, cough. The patient CXR that was performed radiologist read possible aspiration vs atelectasis.The patient reports that she is ready to go home today. Patient labs 2 days ago potassium 3.7, CR 1.2, BNP 1165. Yesterday labs are potassium 3.4, CR 1.2, BNP 1121. Today labs are BUN 19, CR 1.3, BS 162, BNP 863. Will discharge. - Discharge Data Discharge Date: 07/15/19 Discharge Disposition: Home, Self-Care 01 Condition: Good - Patient Instructions Diet: Usual Diet as Tolerated Activity: As Tolerated Driving: Do Not Drive Showering/Bathing: May Shower Notify Provider of: Fever, Swelling and Redness, Nausea and/or Vomiting Other/Special Instructions: Shortness of breath, chest pain, passing out, or any other concerns - Discharge Plan *PRESCRIPTION DRUG MONITORING PROGRAM REVIEWED*: Not Applicable *COPY OF PRESCRIPTION DRUG MONITORING REPORT IN PATIENT CHARLEY: Not Applicable Prescriptions/Med Rec: levoFLOXacin [Levaquin] 500 mg PO DAILY 5 Days #5 tablet Metoprolol Tartrate [Lopressor] 12.5 mg PO BID #60 tablet Home Medications: Home Meds Budesonide/Formoterol [Symbicort 160-4.5 MCG] 2 puff INH BID 10/28/16 [History] Calcium Carbonate [Calcium] 600 mg PO DAILY 10/28/16 [History] Magnesium 500 mg PO DAILY 10/28/16 [History] Furosemide 40 mg PO DAILY 02/01/17 [History] Insuln Asp Prot/Insulin Aspart [NovoLOG Mix 70-30] 23 unit SUBCUT ACDINNER 02/01 [History] Insuln Asp Prot/Insulin Aspart [NovoLOG Mix 70-30] 38 unit SUBCUT ACBREAKFAST [History] Apixaban [Eliquis] 5 mg PO BID 02/24/18 [History] Denosumab [Prolia] 60 mg SQ Q6M 04/06/19 [History] Albuterol [Ventolin HFA] 2 puff INH QID 07/13/19 [History] Rosuvastatin Calcium 20 mg PO DAILY 07/13/19 [History] Metoprolol Tartrate [Lopressor] 12.5 mg PO BID #60 tablet 07/15/19 [Rx] levoFLOXacin [Levaquin] 500 mg PO DAILY 5 Days #5 tablet 07/15/19 [Rx] Oxygen Therapy Mode: Room Air Patient Handouts: Atrial Fibrillation, [id number] - Discharge Summary/Plan Comment DC Time >30 min.: No - General Info Date of Service: 07/15/19 Functional Status: Reports: Pain Controlled, Tolerating Diet, Ambulating, Urinating - Review of Systems General: Reports: No Symptoms HEENT: Reports: No Symptoms Pulmonary: Reports: No Symptoms. Denies: Shortness of Breath, Pleuritic Chest Pain, Cough, Sputum, Hemoptysis, Wheezing Cardiovascular: Reports: No Symptoms. Denies: Chest Pain, Palpitations, Dyspnea on Exertion, Edema, Lightheadedness Gastrointestinal: Reports: No Symptoms. Denies: Abdominal Pain, Diarrhea, Nausea, Vomiting Genitourinary: Reports: No Symptoms Musculoskeletal: Reports: No Symptoms Skin: Reports: No Symptoms Neurological: Reports: No Symptoms Psychiatric: Reports: No Symptoms - Patient Data Vitals - Most Recent: Last Vital Signs Temp 98.7 F 07/15/19 08:00 Pulse 84 07/15/19 08:27 Resp 18 07/15/19 08:00 BP 152/71 H 07/15/19 08:27 Pulse Ox 97 07/15/19 08:00 Weight - Most Recent: 147 lb 9.6 oz Lab Results - Last 24 hrs: Laboratory Results - last 24 hr 07/14/19 07/14/19 07/14/19 Range/Units 11:37 17:25 20:17 WBC (5.0-10.0) 10^3/uL RBC (4.00-5.50) 10^6/uL Hgb (12.0-16.0) g/dL Hct (37.0-47.0) % MCV (82.0-94.0) fL MCH (27.0-32.0) pg MCHC (33.0-38.0) g/dL RDW Coeff of Carter (11.0-15.0) % Plt Count (150-400) 10^3/uL Neut % (Auto) (35-85) % Lymph % (Auto) (10-55) % [place] % (Auto) (0-16) % Eos % (Auto) (0-5) % Baso % (Auto) (0-3) % Neut # (Auto) (1.80-7.00) 10^3/uL Lymph # (Auto) (1.00-4.80) 10^3/uL [place] # (Auto) (0.00-0.80) 10^3/uL Eos # (Auto) (0.00-0.45) 10^3/uL Baso # (Auto) 10^3/uL Sodium (136-145) mEq/L Potassium (3.5-5.0) mEq/L Chloride (98-106) mEq/L Carbon Dioxide (21-32) mmol/L BUN (7-18) mg/dL Creatinine (0.6-1.0) mg/dL Est Cr Clr Drug Dosing mL/min Estimated GFR (MDRD) (>=60) mL/min Glucose (75-99) mg/dL POC Glucose 267 H 233 H 306 H (75-105) mg/dl Calcium (8.4-10.1) mg/dL NT-Pro-B Natriuret Pep (0-1000) pg/mL 07/15/19 07/15/19 07/15/19 Range/Units 07:00 07:00 07:57 WBC 7.1 (5.0-10.0) 10^3/uL RBC 4.12 (4.00-5.50) 10^6/uL Hgb 10.9 L (12.0-16.0) g/dL Hct 35.5 L (37.0-47.0) % MCV 86.2 (82.0-94.0) fL MCH 26.5 L (27.0-32.0) pg MCHC 30.7 L (33.0-38.0) g/dL RDW Coeff of Carter 16.2 H (11.0-15.0) % Plt Count 284 (150-400) 10^3/uL Neut % (Auto) 56.5 (35-85) % Lymph % (Auto) 27.6 (10-55) % [place] % (Auto) 12.5 (0-16) % Eos % (Auto) 3.1 (0-5) % Baso % (Auto) 0.3 (0-3) % Neut # (Auto) 4.04 (1.80-7.00) 10^3/uL Lymph # (Auto) 1.97 (1.00-4.80) 10^3/uL [place] # (Auto) 0.89 H (0.00-0.80) 10^3/uL Eos # (Auto) 0.22 (0.00-0.45) 10^3/uL Baso # (Auto) 0.02 10^3/uL Sodium 139 (136-145) mEq/L Potassium 3.7 (3.5-5.0) mEq/L Chloride 103 (98-106) mEq/L Carbon Dioxide 26 (21-32) mmol/L BUN 19 H (7-18) mg/dL Creatinine 1.3 H (0.6-1.0) mg/dL Est Cr Clr Drug Dosing 25.93 mL/min Estimated GFR (MDRD) 39 L (>=60) mL/min Glucose 175 H D (75-99) mg/dL POC Glucose 162 H (75-105) mg/dl Calcium 9.1 (8.4-10.1) mg/dL NT-Pro-B Natriuret Pep 863 (0-1000) pg/mL Med Orders - Current: Current Medications Albuterol (Ventolin Hfa) 0 gm INH QID [facility] Last Admin: 07/15/19 08:19 Dose: 2 puff Apixaban (Eliquis) 5 mg PO BID [facility] Last Admin: 07/15/19 08:18 Dose: 5 mg Furosemide (Lasix) 40 mg PO DAILY [facility] Last Admin: 07/15/19 08:18 Dose: 40 mg Insulin NPH Beef/Pork (Humulin 70-30) 23 unit SQ DAILY@2000 [facility] Last Admin: 07/14/19 20:19 Dose: 23 unit Insulin NPH Beef/Pork (Humulin 70-30) 38 unit SQ DAILY@0800 [facility] Last Admin: 07/15/19 08:17 Dose: 38 unit Levofloxacin (Levaquin) 250 mg PO DAILY [facility] Last Admin: 07/15/19 08:26 Dose: 250 mg Magnesium Oxide (Magnesium Oxide) 500 mg PO DAILY [facility] Last Admin: 07/15/19 08:25 Dose: 500 mg Metoprolol Tartrate (Lopressor) 12.5 mg PO BID [facility] Last Admin: 07/15/19 08:27 Dose: 12.5 mg Non-Formulary Medication (Budesonide/Formoterol) 2 puff INH BID [facility] Last Admin: 07/15/19 08:19 Dose: Not Given Simvastatin (Zocor) 80 mg PO DAILY [facility] Last Admin: 07/15/19 08:27 Dose: 80 mg Sodium Chloride (Saline Flush) 10 ml FLUSH ASDIRECTED PRN PRN Reason: Keep Vein Open Discontinued Medications Levofloxacin (Levaquin) 500 mg PO ONETIME ONE Stop: 07/14/19 09:01 Last Admin: 07/14/19 10:15 Dose: 500 mg Levofloxacin (Levaquin) 500 mg PO ONETIME ONE Stop: 07/14/19 09:16 Last Admin: 07/14/19 10:15 Dose: Not Given Metoprolol Tartrate (Lopressor) 12.5 mg PO Q12H [facility] Last Admin: 07/13/19 21:37 Dose: 12.5 mg Symbicort 4.5-160 ([place] Med) 0 puff INH BID PRN PRN Reason: Shortness of Breath - Exam General: Reports: Alert, Oriented, Cooperative, No Acute Distress Neck: Reports: Supple, Trachea Midline, No JVD Lungs: Reports: Clear to Auscultation, Normal Respiratory Effort. Denies: Decreased Breath Sounds Cardiovascular: Reports: Regular Rate, Regular Rhythm, Murmurs GI/Abdominal Exam: Normal Bowel Sounds, Soft, Non-Tender, No Organomegaly, No Distention, No Abnormal Bruit, No Mass, Pelvis Stable Back Exam: Reports: Normal Inspection, Full Range of Motion Extremities: Normal Inspection, Normal Range of Motion, Non-Tender, No Pedal Edema, Normal Capillary Refill Skin: Reports: Warm, Dry, Intact Neurological: Reports: No New Focal Deficit Psy/Mental Status: Reports: Alert, Normal Affect, Normal Mood
[2019-07-15 12:16] VITALS: PULSE 84
[2019-07-15] MEDS ORDERED: Metoprolol Tartrate 25 MG Tab PO ONE (13:07)
[2019-07-15 13:35] VITALS: BP 152/71
== END 2019-07-15 13:43 | disposition home or self-care (01) ==
LOC: CC.FCMC 10:41 → UNDOADMOB 11:39 → CC.MS 11:39
PROVIDERS: ADMIT Physician Assistant Medical; ATTEND Family Medicine
DX: R06.02 Shortness of breath (principal); I48.91 Unspecified atrial fibrillation; I35.0 Nonrheumatic aortic (valve) stenosis; I25.10 Atherosclerotic heart disease of native coronary artery without angina pectoris; I11.0 Hypertensive heart disease with heart failure; I50.9 Heart failure, unspecified; E11.40 Type 2 diabetes mellitus with diabetic neuropathy, unspecified; E78.5 Hyperlipidemia, unspecified; M19.90 Unspecified osteoarthritis, unspecified site; E55.9 Vitamin D deficiency, unspecified; Z79.51 Long term (current) use of inhaled steroids; Z79.4 Long term (current) use of insulin; Z79.01 Long term (current) use of anticoagulants
CPT/HCPCS: 36415; 71046; 80048; 80053; 82550; 82962; 83880; 84484; 85025; 85379; 93005; 99217; 99220; 99225; A9270-GY; G0378; J1815-GY

== ENCOUNTER 2020-05-30 08:13 | Emergency (ER) | payer MEDICARE, BC, OTHER ==
[2020-05-30 08:24] VITALS: BP 149/85; PULSE 96
--- NOTE | 2020-05-30 08:44 | EDM.PDOC ---
ED HPI GENERAL MEDICAL PROBLEM - General Chief Complaint: Respiratory Problem Stated Complaint: cough, SOB Time Seen by Provider: 05/30/20 08:43 Source of Information: Reports: Patient History Limitations: Reports: No Limitations - History of Present Illness INITIAL COMMENTS - FREE TEXT/NARRATIVE: Leslie Pickett is an 84 yo female who presents to the ED via [facility] with c/o shortness of breath and cough. She reports that starting yesterday she had cough and sore throat. Reports that early this morning she started feeling short of breath. Was unable to get in contact with any of her children so she reports she called EMS. At time of arrival she reports shortness of breath has improved some. She reports it comes and goes. Does c/o cough productive of clear sputum on occasion. Was seen in clinic yesterday and started on prednisone. She denies any chest pain, dizziness, N/V/D, urinary symptoms, syncope. She does not offer any additional complaints. Onset: Today, Sudden Onset Date: 05/30/20 Onset Time: 05:00 Duration: Intermittent Severity: Mild Associated Symptoms: Reports: Cough, cough w sputum, Shortness of Breath. Denies: Confusion, Chest Pain, Diaphoresis, Fever/Chills, Headaches, Loss of Appetite, Malaise, Nausea/Vomiting, Rash, Seizure, Syncope, Weakness - Related Data Allergies Allergy/AdvReac Type Severity Reaction Status Date / Time No Known Allergies Allergy Verified 05/30/20 08:27 Home Meds: Home Meds Budesonide/Formoterol [Symbicort 160-4.5 MCG] 2 puff INH BID 10/28/16 [History] Calcium Carbonate [Calcium] 600 mg PO DAILY 10/28/16 [History] Magnesium 500 mg PO BEDTIME 10/28/16 [History] Furosemide 40 mg PO DAILY 02/01/17 [History] Insuln Asp Prot/Insulin Aspart [NovoLOG Mix 70-30] 25 unit SUBCUT ACDINNER 01/06 06/23 [History] Insuln Asp Prot/Insulin Aspart [NovoLOG Mix 70-30] 40 unit SUBCUT ACBREAKFAST 02/01/17 [History] Apixaban [Eliquis] 5 mg PO BID 02/24/18 [History] Denosumab [Prolia] 60 mg SQ Q6M 04/06/19 [History] Albuterol [Ventolin HFA] 2 puff INH QID PRN 07/13/19 [History] Rosuvastatin Calcium 20 mg PO BEDTIME 07/13/19 [History] Metoprolol Tartrate [Lopressor] 12.5 mg PO BID #60 tablet 07/15/19 [Rx] Cranberry Fruit Extract [Cranberry] 300 mg PO DAILY 05/30/20 [History] Echinacea 380 mg PO DAILY 05/30/20 [History] Multivitamin [Multivitamins] 1 tab PO BEDTIME 05/30/20 [History] Potassium Chloride [Klor-Con 10] 10 meq PO DAILY 05/30/20 [History] nitrofurantoin macrocrystaL [Nitrofurantoin] 100 mg PO BEDTIME 05/30/20 [History] predniSONE 20 mg PO BID 05/30/20 [History] Past Medical History HEENT History: Reports: Cataract Other HEENT History: "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 TAIL EDGER History: Reports: Musculoskeletal History: Reports: Arthritis, Fracture Endocrine/Metabolic History: Reports: Diabetes, Type II - Past Surgical History HEENT Surgical History: Reports: Cataract Surgery GI Surgical History: Reports: Appendectomy, Colonoscopy, Polypectomy Female Surgical History: Reports: None Musculoskeletal Surgical History: Reports: None Social & Family History - Family History Family Medical History: Noncontributory - Caffeine Use Caffeine Use: Reports: None - Living Situation & Occupation Living situation: Reports: , Alone Occupation: Retired ED ROS GENERAL - Review of Systems Review Of Systems: Comprehensive ROS is negative, except as noted in HPI. ED EXAM, GENERAL - Physical Exam Exam: See Below Exam Limited By: No Limitations General Appearance: Alert, WD/WN, No Apparent Distress Eye Exam: Bilateral Eye: EOMI, PERRL Head: Atraumatic, Normocephalic Neck: Normal Inspection, Supple, Non-Tender, Full Range of Motion Respiratory/Chest: No Respiratory Distress, Lungs Clear, Normal Breath Sounds, No Accessory Muscle Use, Chest Non-Tender Cardiovascular: Normal Peripheral Pulses, No Edema, No JVD, Systolic Murmur, Irregularly Irregular GI/Abdominal: Normal Bowel Sounds, Soft, Non-Tender, No Organomegaly, No Distention, No Abnormal Bruit, No Mass Back Exam: Normal Inspection, Full Range of Motion, NT Extremities: Normal Inspection, Normal Range of Motion, Non-Tender, Normal Capillary Refill, No Pedal Edema Neurological: Alert, Oriented, CN II-XII Intact, Normal Cognition, Normal Gait, Normal Reflexes, No Motor/Sensory Deficits Psychiatric: Normal Affect, Normal Mood Course - Vital Signs Last Recorded V/S: Last Vital Signs Temp 98.4 F 05/30/20 08:18 Pulse 96 05/30/20 08:18 Resp 16 05/30/20 08:18 BP 149/85 H 05/30/20 08:18 Pulse Ox 98 05/30/20 08:55 - Orders/Labs/Meds Orders: Active Orders 24 hr Category Date Time Status Chest 2V [CR] Stat Exams 05/30/20 08:33 Taken EKG 12 Lead [EK] Routine Ther 05/30/20 12:30 Ordered EKG 12 Lead [EK] Stat Ther 05/30/20 08:30 Ordered Labs: Laboratory Tests 05/30/20 05/30/20 05/30/20 Range/Units 08:55 08:55 08:55 WBC 9.7 (5.0-10.0) 10^3/uL RBC 4.65 (4.00-5.50) 10^6/uL Hgb 13.0 (12.0-16.0) g/dL Hct 38.8 (37.0-47.0) % MCV 83.4 (82.0-94.0) fL MCH 28.0 (27.0-32.0) pg MCHC 33.5 (33.0-38.0) g/dL RDW Coeff of Carter 15.5 H (11.0-15.0) % Plt Count 285 (150-400) 10^3/uL Neut % (Auto) 88.0 H (35-85) % Lymph % (Auto) 9.4 L (10-55) % [place] % (Auto) 2.5 (0-16) % Eos % (Auto) 0 (0-5) % Baso % (Auto) 0.1 (0-3) % Neut # (Auto) 8.52 H (1.80-7.00) 10^3/uL Lymph # (Auto) 0.91 L (1.00-4.80) 10^3/uL [place] # (Auto) 0.24 (0.00-0.80) 10^3/uL Eos # (Auto) 0.00 (0.00-0.45) 10^3/uL Baso # (Auto) 0.01 10^3/uL Sodium 136 (136-145) mEq/L Potassium 4.0 (3.5-5.0) mEq/L Chloride 100 (98-106) mEq/L Carbon Dioxide 25 (21-32) mmol/L BUN 28 H (7-18) mg/dL Creatinine 1.4 H (0.6-1.0) mg/dL Est Cr Clr Drug Dosing 23.11 mL/min Estimated GFR (MDRD) 36 L (>=60) mL/min Glucose 345 H* D (75-99) mg/dL POC Glucose (75-105) mg/dl Calcium 9.4 (8.4-10.1) mg/dL Lactate Dehydrogenase (100-190) U/L Creatine Kinase (21-215) U/L Troponin I 0.876 H (0.00-0.06) ng/mL C-Reactive Protein 2.2 H (0.2-0.8) mg/dL NT-Pro-B Natriuret Pep 2114 H (0-1000) pg/mL COVID-19 (LUCAS) Negative (NEGATIVE) 05/30/20 05/30/20 Range/Units 11:11 12:30 WBC (5.0-10.0) 10^3/uL RBC (4.00-5.50) 10^6/uL Hgb (12.0-16.0) g/dL Hct (37.0-47.0) % MCV (82.0-94.0) fL MCH (27.0-32.0) pg MCHC (33.0-38.0) g/dL RDW Coeff of Carter (11.0-15.0) % Plt Count (150-400) 10^3/uL Neut % (Auto) (35-85) % Lymph % (Auto) (10-55) % [place] % (Auto) (0-16) % Eos % (Auto) (0-5) % Baso % (Auto) (0-3) % Neut # (Auto) (1.80-7.00) 10^3/uL Lymph # (Auto) (1.00-4.80) 10^3/uL [place] # (Auto) (0.00-0.80) 10^3/uL Eos # (Auto) (0.00-0.45) 10^3/uL Baso # (Auto) 10^3/uL Sodium (136-145) mEq/L Potassium (3.5-5.0) mEq/L Chloride (98-106) mEq/L Carbon Dioxide (21-32) mmol/L BUN (7-18) mg/dL Creatinine (0.6-1.0) mg/dL Est Cr Clr Drug Dosing mL/min Estimated GFR (MDRD) (>=60) mL/min Glucose (75-99) mg/dL POC Glucose 447 H* (75-105) mg/dl Calcium (8.4-10.1) mg/dL Lactate Dehydrogenase 170 (100-190) U/L Creatine Kinase 83 (21-215) U/L Troponin I 0.690 H (0.00-0.06) ng/mL C-Reactive Protein (0.2-0.8) mg/dL NT-Pro-B Natriuret Pep (0-1000) pg/mL COVID-19 (LUCAS) (NEGATIVE) Meds: Medications Discontinued Medications Generic Name Dose Route Start Last Admin Trade Name Bob PRN Reason Stop Dose Admin Insulin Human Lispro 25 unit 05/30/20 09:42 05/30/20 10:05 Humalog SUBCUT 05/30/20 09:43 25 unit STAT STA Administration - Re-Assessments/Exams Free Text/Narrative Re-Assessment/Exam: 05/30/20 13:17 Repeat cardiac enzymes show decreasing troponin and no significant EKG changes. Departure - Departure Time of Disposition: 13:41 Disposition: Home, Self-Care 01 Condition: Fair Clinical Impression: NSTEMI (non-ST elevated myocardial infarction), Atrial fibrillation, Congestive heart failure - Discharge Information *PRESCRIPTION DRUG MONITORING PROGRAM REVIEWED*: Not Applicable *COPY OF PRESCRIPTION DRUG MONITORING REPORT IN PATIENT CHARLEY: Not Applicable Referrals: Coral Lozoya MANAGER EMPLOYMENT [Primary Care Provider] - Forms: ED Department Discharge Additional Instructions: - Patient declines any further workup/treatment - Continue all home medications, including Eliquis & Lasix - Recommend follow up with PCP next week for ED recheck - Return to ED for any emergent needs Sepsis Event Note (ED) - Evaluation Sepsis Screening Result: No Definite Risk - Focused Exam Vital Signs: Vital Signs Temp Pulse Resp BP Pulse Ox 05/30/20 08:55 98 05/30/20 08:18 98.4 F 96 16 149/85 H 97 - Problem List & Annotations (1) NSTEMI (non-ST elevated myocardial infarction) SNOMED Code(s): 86340024 Code(s): I21.4 - NON-ST ELEVATION (NSTEMI) MYOCARDIAL INFARCTION Status: Acute Current Visit: Yes (2) Congestive heart failure SNOMED Code(s): 76595480 Code(s): I50.9 - HEART FAILURE, UNSPECIFIED Status: Chronic Priority: High Current Visit: No Qualifiers: Qualified Code(s): I50.23 - Acute on chronic systolic (congestive) heart failure (3) Atrial fibrillation SNOMED Code(s): 20690001 Code(s): I48.91 - UNSPECIFIED ATRIAL FIBRILLATION Status: Chronic Priority: Low Current Visit: No Qualifiers: Atrial fibrillation type: longstanding persistent Qualified Code(s): I48.11 - Longstanding persistent atrial fibrillation - My Orders Last 24 Hours: My Active Orders 05/30/20 08:30 EKG 12 Lead [EK] Stat 05/30/20 08:33 Chest 2V [CR] Stat 05/30/20 12:30 EKG 12 Lead [EK] Routine - Assessment/Plan Last 24 Hours: My Active Orders 05/30/20 08:30 EKG 12 Lead [EK] Stat 05/30/20 08:33 Chest 2V [CR] Stat 05/30/20 12:30 EKG 12 Lead [EK] Routine Assessment:: NSTEMI Acute on Chronic Congestive Heart Failure Atrial Fibrillation Plan: 84 yo female presented with c/o cough and shortness of breath. Shortness of breath was intermittent. VSS on RA. Patient did report improvement in SOB with oxygen. Labs significant for troponin elevated to 0.8 and ProBNP elevated from baseline. Discussed this with patient. She denies further treatment or transfer. Chest xray negative for acute changes. Discussed that we could repeat cardiac enzymes in 3 hrs and monitor. She wishes to just proceed with this. Patient was kept in extended ED. Repeat cardiac enzymes show decreasing troponin. EKG without significant changes from previous. Discussed these results with patient and son. She wishes to discharge home. She reports she is code II and does not wish for any intervention. Patient is already on Eliquis, beta indira, and furosemide. Recommend she continue all home medications and follow up with her PCP for recheck. Return to ED for any emergent needs.
[2020-05-30] MEDS ORDERED: Insulin Lispro 100 Units/ML 3 ML Vial SUBCUT STA (09:42)
== END 2020-05-30 15:40 | disposition home or self-care (01) ==
LOC: CC.ED 08:13
DX: I21.4 Non-ST elevation (NSTEMI) myocardial infarction (principal); I48.91 Unspecified atrial fibrillation; I11.0 Hypertensive heart disease with heart failure; I50.9 Heart failure, unspecified; E11.9 Type 2 diabetes mellitus without complications; E78.00 Pure hypercholesterolemia, unspecified; I25.10 Atherosclerotic heart disease of native coronary artery without angina pectoris; Z79.4 Long term (current) use of insulin; Z79.899 Other long term (current) drug therapy; Z20.828 Contact with and (suspected) exposure to other viral communicable diseases; Z79.01 Long term (current) use of anticoagulants; J45.909 Unspecified asthma, uncomplicated
CPT/HCPCS: 36415; 71046; 80048; 82550; 82962; 83615; 83880; 84484; 85025; 86140; 93005; 99284; 99285; J1815; U0002; 93010

== ENCOUNTER 2020-06-18 22:40 | Inpatient (IN) | payer MEDICARE, BC ==
--- NOTE | 2020-06-18 23:21 | EDM.PDOC ---
ED HPI GENERAL MEDICAL PROBLEM - General Chief Complaint: General Stated Complaint: fall Time Seen by Provider: 06/18/20 23:00 Source of Information: Reports: Patient, EMS History Limitations: Reports: No Limitations - History of Present Illness INITIAL COMMENTS - FREE TEXT/NARRATIVE: Pt states that she had got up from her chair and was using her walker to "go to bed" when she suddenly fainted. She states that she hit her head on a cardboard box and has some thoracic back pain. She states that she was feeling fine before she got up and doesn't know if she got up too fast or not. She denies having and chest pain or headache. She is complaining of being hungry and thirsty. She can't recall is she had ate supper or not. She was on her way to get a snack before she went to bed. Son was home and was present when she had fallen. She has not had any double or blurred vision. Denies any headache. She states that she remembers "waking up sitting on her butt" Has small abrasion under the right chin. She has no other complaints of pain. GCS on admission s 15 Onset: Today Location: Reports: Back Associated Symptoms: Denies: Confusion, Headaches - Related Data Allergies Allergy/AdvReac Type Severity Reaction Status Date / Time No Known Allergies Allergy Verified 06/18/20 23:35 Home Meds: Home Meds Budesonide/Formoterol [Symbicort 160-4.5 MCG] 2 puff INH BID 10/28/16 [History] Calcium Carbonate [Calcium] 600 mg PO DAILY 10/28/16 [History] Magnesium 500 mg PO BEDTIME 10/28/16 [History] Furosemide 40 mg PO DAILY 02/01/17 [History] Insuln Asp Prot/Insulin Aspart [NovoLOG Mix 70-30] 25 unit SUBCUT ACDINNER 02/01/17 [History] Insuln Asp Prot/Insulin Aspart [NovoLOG Mix 70-30] 40 unit SUBCUT ACBREAKFAST 02/01/17 [History] Apixaban [Eliquis] 5 mg PO BID 02/24/18 [History] Denosumab [Prolia] 60 mg SQ Q6M 04/06/19 [History] Albuterol [Ventolin HFA] 2 puff INH QID PRN 07/13/19 [History] Rosuvastatin Calcium 20 mg PO BEDTIME 07/13/19 [History] Cranberry Fruit Extract [Cranberry] 300 mg PO DAILY 05/30/20 [History] Echinacea 380 mg PO DAILY 05/30/20 [History] Multivitamin [Multivitamins] 1 tab PO BEDTIME 05/30/20 [History] Potassium Chloride [Klor-Con 10] 10 meq PO DAILY 05/30/20 [History] nitrofurantoin macrocrystaL [Nitrofurantoin] 100 mg PO BEDTIME 05/30/20 [History] Metoprolol Tartrate [Lopressor] 12.5 mg PO BID 06/18/20 [History] Past Medical History HEENT History: Reports: Cataract Other HEENT History: "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: Musculoskeletal History: Reports: Arthritis, Fracture Endocrine/Metabolic History: Reports: Diabetes, Type II Dermatologic History: Reports: Eczema - Past Surgical History HEENT Surgical History: Reports: Cataract Surgery GI Surgical History: Reports: Appendectomy, Colonoscopy, Polypectomy Female Surgical History: Reports: None Musculoskeletal Surgical History: Reports: None Social & Family History - Family History Family Medical History: Noncontributory - Caffeine Use Caffeine Use: Reports: None - Living Situation & Occupation Living situation: Reports: , Alone Occupation: Retired ED ROS GENERAL - Review of Systems Review Of Systems: See Below Constitutional: Denies: Fever, Chills, Weakness HEENT: Reports: No Symptoms Respiratory: Reports: No Symptoms Cardiovascular: Reports: No Symptoms GI/Abdominal: Reports: No Symptoms : Reports: No Symptoms Musculoskeletal: Reports: Back Pain (thoracic) Skin: Reports: Wound (under right chin) Neurological: Denies: Confusion, Dizziness, Headache, Seizure ED EXAM, GENERAL - Physical Exam Exam: See Below Free Text/Narrative:: airway is open breathing is normal with good air exchange circulation is no bleeding, a fib deformity is none exposed to evaluate for injuries and none found GCS is 15 No pelvic or chest tenderness noted- No CT needed Exam Limited By: No Limitations General Appearance: Alert, WD/WN, No Apparent Distress Ears: Normal External Exam, Normal Canal, Normal TMs Nose: Normal Inspection Throat/Mouth: Normal Inspection, Normal Oropharynx, No Airway Compromise Head: Atraumatic, Normocephalic Neck: Normal Inspection, Supple, Non-Tender, Full Range of Motion Respiratory/Chest: No Respiratory Distress, Lungs Clear, Normal Breath Sounds Cardiovascular: No Edema, Irregularly Irregular GI/Abdominal: Normal Bowel Sounds, Soft, Non-Tender Back Exam: Vertebral Tenderness (to thoracic area. Is able to sit up and move without increase in discomfort. No bruising or abrasions noted to the area.) Extremities: Normal Inspection, Normal Range of Motion, No Pedal Edema, Other (discomfort to the thoracic spine. No bruising noted.) Neurological: Alert, Oriented, CN II-XII Intact, Normal Cognition, No Motor/Sensory Deficits Skin Exam: Warm, Dry, Intact Course - Orders/Labs/Meds Orders: Active Orders 24 hr Category Date Time Status Chest 2V [CR] Stat Exams 06/18/20 22:59 Ordered Head wo Cont [CT] Stat Exams 06/18/20 23:09 Ordered Lumbar Spine 2 or 3V [CR] Stat Exams 06/18/20 22:59 Ordered CBC WITH AUTO DIFF [HEME] Stat Lab 06/18/20 23:00 Ordered CMP [COMPREHENSIVE METABOLIC PN,CMP] [CHEM] Stat Lab 06/18/20 23:00 Ordered CREATINE KINASE,CK [CHEM] Stat Lab 06/18/20 23:00 Ordered INR,PT,PROTHROMBIN TIME [COAG] Stat Lab 06/18/20 23:03 Ordered LACTATE DEHYDROGENASE,LDH [CHEM] Stat Lab 06/18/20 23:00 Ordered PTT,PARTIAL THROMBOPLSTIN TIME [COAG] Stat Lab 06/18/20 23:03 Ordered EKG 12 Lead [EK] Stat Ther 06/18/20 23:00 Ordered - Re-Assessments/Exams Free Text/Narrative Re-Assessment/Exam: 06/18/20 23:50 In to discuss low potassium level and the need to replace it. Other labs are normal at this time. No acute fracture noted in the thoracic spine. CXR is normal GCS is 15. Departure - Departure Time of Disposition: 23:53 Disposition: Refer to Observation Condition: Good Clinical Impression: Hypokalemia Syncope Qualifiers: Syncope type: unspecified Qualified Code(s): R55 - Syncope and collapse - Discharge Information *PRESCRIPTION DRUG MONITORING PROGRAM REVIEWED*: Not Applicable *COPY OF PRESCRIPTION DRUG MONITORING REPORT IN PATIENT CHARLEY: Not Applicable Additional Instructions: Admit observation for neuro checks and monitoring. - Problem List & Annotations (1) Syncope SNOMED Code(s): 099736129 Code(s): R55 - SYNCOPE AND COLLAPSE Status: Acute Priority: High Qualifiers: Syncope type: unspecified Qualified Code(s): R55 - Syncope and collapse (2) Hypokalemia SNOMED Code(s): 99834680 Code(s): E87.6 - HYPOKALEMIA Status: Acute Priority: High (3) Atrial fibrillation SNOMED Code(s): 19572105 Code(s): I48.91 - UNSPECIFIED ATRIAL FIBRILLATION Status: Chronic Priority: Low Qualifiers: Atrial fibrillation type: longstanding persistent Qualified Code(s): I48.11 - Longstanding persistent atrial fibrillation (4) Diabetes mellitus SNOMED Code(s): 61010336 Code(s): E11.9 - TYPE 2 DIABETES MELLITUS WITHOUT COMPLICATIONS Status: Chronic Priority: Low Qualifiers: Diabetes mellitus type: type 2 Diabetes mellitus complication status: without complication - Problem List Review Problem List Initiated/Reviewed/Updated: Yes - My Orders Last 24 Hours: My Active Orders 06/18/20 22:59 Chest 2V [CR] Stat Lumbar Spine 2 or 3V [CR] Stat 06/18/20 23:00 CBC WITH AUTO DIFF [HEME] Stat CMP [COMPREHENSIVE METABOLIC PN,CMP] [CHEM] Stat CREATINE KINASE,CK [CHEM] Stat LACTATE DEHYDROGENASE,LDH [CHEM] Stat EKG 12 Lead [EK] Stat 06/18/20 23:03 INR,PT,PROTHROMBIN TIME [COAG] Stat PTT,PARTIAL THROMBOPLSTIN TIME [COAG] Stat 06/18/20 23:09 Head wo Cont [CT] Stat - Assessment/Plan Admission H&P: Please use this note as an admission H&P Last 24 Hours: My Active Orders 06/18/20 22:59 Chest 2V [CR] Stat Lumbar Spine 2 or 3V [CR] Stat 06/18/20 23:00 CBC WITH AUTO DIFF [HEME] Stat CMP [COMPREHENSIVE METABOLIC PN,CMP] [CHEM] Stat CREATINE KINASE,CK [CHEM] Stat LACTATE DEHYDROGENASE,LDH [CHEM] Stat EKG 12 Lead [EK] Stat 06/18/20 23:03 INR,PT,PROTHROMBIN TIME [COAG] Stat PTT,PARTIAL THROMBOPLSTIN TIME [COAG] Stat 06/18/20 23:09 Head wo Cont [CT] Stat Plan: admit observation with telemetry to Dr. Anna with neuro checks. correct her potassium level
[2020-06-18 23:32] LABS: PTT,PARTIAL THROMBOPLSTIN TIME 26.7 SEC (23.2-32.3)
[2020-06-18 23:37] LABS: CHLORIDE,CL 98 mEq/L (98-106); SODIUM,NA 138 mEq/L (136-145)
[2020-06-18] MEDS ORDERED: Non-Formulary Medication 1 Each (Albuterol 2 PUFF) INH PRN (23:54)
[2020-06-19] MEDS ORDERED: Sodium Chloride 0.9% 10 ML Syringe FLUSH PRN (00:11)
[2020-06-19] MEDS ORDERED: Potassium Chloride 20 MEQ in Premix Bag 1 BAG IV ONE (00:11)
[2020-06-19] MEDS ORDERED: Sodium Chloride 0.9% 250 ML IV SCH (01:00)
[2020-06-19] MEDS ORDERED: [UNRECOGNIZED DRUG - OTHER] SUBCUT SCH (07:00)
[2020-06-19] MEDS ORDERED: INSULN ASP PROT SUBCUT SCH ×2 (07:00→10:30)
[2020-06-19] MEDS ORDERED: INSULIN ASPART SUBCUT SCH ×2 (07:00→10:30)
[2020-06-19] MEDS ORDERED: Non-Formulary Medication 1 Each (Budesonide/Formoterol 2 PUFF) INH SCH (08:00)
[2020-06-19] MEDS ORDERED: Potassium Chloride Riders 40 MEQ in Premix Bag 1 BAG IV ONE (10:17)
[2020-06-19] MEDS: Furosemide 40 MG Tab PO SCH (10:25)
[2020-06-19] MEDS: Metoprolol Tartrate 25 MG Tab PO SCH ×2 (10:25→20:01)
[2020-06-19] MEDS: Potassium Chloride 10 MEQ Tab.ER PO SCH (10:25)
[2020-06-19] MEDS: Apixaban 5 MG Tab PO SCH ×2 (10:25→20:04)
[2020-06-19] MEDS: Polyethylene Glycol 3350 Powder 17 GM Packet PO SCH (10:25)
[2020-06-19] MEDS: Insulin Lispro 100 Units/ML 3 ML Vial SUBCUT SCH ×4 (10:26→21:05)
[2020-06-19] MEDS ORDERED: Albuterol 8 GM Inhaler**OWN MED INH PRN (10:28)
[2020-06-19] MEDS ORDERED: Sodium Chloride 0.9% 1,000 ML IV ONE (10:35)
[2020-06-19] MEDS: BUDESONIDE INH SCH ×2 (10:57→20:06)
[2020-06-19] MEDS: FORMOTEROL INH SCH ×2 (10:57→20:06)
[2020-06-19] MEDS: Acetaminophen 500 MG Tab PO PRN (11:13)
[2020-06-19] MEDS: Acetaminophen/HYDROcodone 325-5 MG Tab PO PRN ×2 (13:40→20:04)
--- NOTE | 2020-06-19 13:43 | PN ---
DATE: 06/19/2020 S: Leslie Pickett is an 84-year-old female who was admitted to the hospital yesterday after concerns of a fall. She was getting up to go to bed when she had a syncopal episode, ended up hitting her head on a cardboard box and having some back pain with it. She sustained a small abrasion to the right chin area. Upon arrival, GCS was 15, to the emergency room, she was admitted observation status with telemetry and neuro checks. Potassium was low on admission at 2.7, which she was given potassium supplementation. Potassium did improve to 3.1 today. CBC on admission was within normal limits. INR was 1.15. Creatinine was slightly elevated at 1.6. Cardiac enzymes were negative. EKG completed yesterday did show atrial fibrillation with rate controlled at 83 beats per minute. She states today that she is feeling well, does not have any more syncopal episodes. She does admit that she is having a lot of back discomfort. She has been taking Tylenol which does give her a minimal relief. X-ray was completed of the thoracic spine yesterday that does show concerns of 2 burst type fractures that appear to be stable, however. A CT of the head was negative yesterday. O: VITAL SIGNS: Blood pressure 120/57, respiratory rate of 18, O2 is 97% on room air, temperature 98.3, with a pulse of 78. GENERAL: pleasant, cooperative female, does not really appear to be in any acute distress, not acutely ill. HEENT: Grossly unremarkable. She does have a well-healing abrasion to the right lower chin area. NECK: Supple. No discomfort. No discomfort of cervical spine. LUNGS: Clear to auscultation. I do not hear any adventitious sounds. CARDIAC: Regular rate, irregular rhythm. Systolic murmur noted. No edema is present. MUSCULOSKELETAL: Palpation of the mid back region does show some discomfort along the thoracic spine. ABDOMEN: Soft. Bowel sounds are present. Normoactive. No organomegaly. No guarding or rigidity is noted. ASSESSMENT: 1. SYNCOPAL EPISODE, RESOLVED. 2. HYPOKALEMIA, IMPROVING. 3. ATRIAL FIBRILLATION, CHRONIC. 4. DIABETES MELLITUS, CHRONIC. 5. THORACIC BURST FRACTURE. P: We will get a CT scan of the thoracic spine today due to the patient's discomfort. We did give another 40 mEq of potassium chloride as her potassium is at 3.1, we will check tomorrow, repeat laboratory work to make sure it is therapeutic. The patient is in agreement. We will continue with current medications as is. ROSMERY/VERONICA /[id number]
[2020-06-19] MEDS: INSULIN ASPART SUBCUT SCH (17:27)
[2020-06-19] MEDS: INSULN ASP PROT SUBCUT SCH (17:27)
[2020-06-19] MEDS: [UNRECOGNIZED DRUG - OTHER] SUBCUT SCH (17:27)
[2020-06-19] MEDS ORDERED: Non-Formulary Medication 1 Each (Magnesium [Magnesium] 500 MG) PO SCH (20:00)
[2020-06-19] MEDS ORDERED: NITROFURANTOIN MACROCRYSTAL 100 MG PO SCH (20:00)
[2020-06-19] MEDS: Non-Formulary Medication 1 Each (Rosuvastatin Calcium [Rosuvastatin Calcium] 20 MG) PO SCH (21:02)
[2020-06-20] MEDS: Acetaminophen 500 MG Tab PO PRN (04:59)
[2020-06-20] MEDS: FORMOTEROL INH SCH ×2 (07:58→20:01)
[2020-06-20] MEDS: BUDESONIDE INH SCH ×2 (07:58→20:01)
[2020-06-20] MEDS: Insulin Lispro 100 Units/ML 3 ML Vial SUBCUT SCH ×4 (08:02→20:08)
[2020-06-20] MEDS: Metoprolol Tartrate 25 MG Tab PO SCH ×2 (08:08→19:15)
[2020-06-20] MEDS: Potassium Chloride 10 MEQ Tab.ER PO SCH (08:08)
[2020-06-20] MEDS: Polyethylene Glycol 3350 Powder 17 GM Packet PO SCH (08:08)
[2020-06-20] MEDS: Furosemide 40 MG Tab PO SCH (08:09)
[2020-06-20] MEDS: Apixaban 5 MG Tab PO SCH ×2 (08:09→19:15)
[2020-06-20] MEDS: INSULN ASP PROT SUBCUT SCH ×2 (08:44→17:37)
[2020-06-20] MEDS: INSULIN ASPART SUBCUT SCH ×2 (08:44→17:37)
[2020-06-20] MEDS: Acetaminophen/HYDROcodone 325-5 MG Tab PO PRN ×3 (08:46→18:30)
[2020-06-20] MEDS: fentaNYL 100 MCG/2 ML SDV IVPUSH SCH ×2 (10:37→19:15)
[2020-06-20] MEDS: guaiFENesin/Dextromethorphan 100-10 MG/5 ML Soln 5 ML Cup PO PRN (11:24)
--- NOTE | 2020-06-20 11:38 | PN ---
DATE: 06/20/2020 S: Leslie Pickett is an 84-year-old female who was initially admitted to the hospital on 06/18 after sustaining a fall when she got up out of bed. She underwent a CT scan of the head, which was negative. Had a chest x-ray, which was clear. She has a small abrasion to the right chin area. She was admitted with a potassium level of 2.7. She has been getting IV supplementation. Cardiac workup was negative. The patient does have history of atrial fibrillation; however, rate has been controlled. She has been having a lot of back discomfort upon admission. X-ray of the thoracic spine was completed, did show 2 burst-type stable thoracic compression fractures. CT of the head was negative on admission. She underwent a CT scan of the thoracic spine yesterday that was stable. She continues today to complain of some back pain. States she just feels miserable. Continues to have current pain anywhere between 4 to 5 out of 10 on the pain scale. She did get oral hydrocodone for pain control. She states she does get a little bit of relief with this. O: VITAL SIGNS: Blood pressure 136/75, respiratory rate of 16, O2 is 95% on room air, pulse of 73 with a temperature 98.1. GENERAL: Pleasant, cooperative female, sitting up in her bed. Does not appear to be in any distress presently per se. HEENT: Grossly unremarkable. LUNGS: Clear to auscultation. I did not hear any adventitious sounds. CARDIAC: Regular rate, irregular rhythm. Systolic murmur noted. ABDOMEN: Soft. Bowel sounds present, normoactive. Last bowel was this morning. EXTREMITIES: No significant pedal edema is noted. BACK: Examination of the back does show some tenderness, mid thoracic spine region upon palpation. No bruising is noted. No swelling is noted. ASSESSMENT: 1. SYNCOPAL EPISODE, RESOLVED. 2. HYPOKALEMIA, CORRECTED. 3. COMPLETE ATRIAL FIBRILLATION, CHRONIC. 4. DIABETES MELLITUS, CHRONIC. 5. THORACIC BURST FRACTURE, PAIN NOT CONTROLLED. P: CT again of the thoracic spine was completed yesterday. We will switch the patient from observation to acute status for pain control. We will start her on fentanyl 12.5 twice a day to see if we can help control her pain at this point in time. We will discontinue the IV potassium and we will continue oral potassium. Repeat BMP in the morning. The patient is in agreement. We will get PT to work with her as well today. ROSMERY/VERONICA /[id number]
[2020-06-20] MEDS: [UNRECOGNIZED DRUG - OTHER] SUBCUT SCH (17:37)
[2020-06-20] MEDS ORDERED: Nitrofurantoin Monohydrate/Macrocrystalline 100 MG Cap PO SCH (20:00)
[2020-06-20] MEDS: Nitrofurantoin Monohydrate/Macrocrystalline 100 MG Cap PO SCH (20:03)
[2020-06-20] MEDS: Non-Formulary Medication 1 Each (Rosuvastatin Calcium [Rosuvastatin Calcium] 20 MG) PO SCH (20:04)
[2020-06-20] MEDS: Simvastatin 40 MG Tab PO SCH (20:05)
[2020-06-21] MEDS: Acetaminophen/HYDROcodone 325-5 MG Tab PO PRN ×4 (01:56→19:04)
[2020-06-21] MEDS: fentaNYL 100 MCG/2 ML SDV IVPUSH SCH ×2 (08:04→20:52)
[2020-06-21] MEDS: Polyethylene Glycol 3350 Powder 17 GM Packet PO SCH (08:09)
[2020-06-21] MEDS: Furosemide 40 MG Tab PO SCH (08:09)
[2020-06-21] MEDS: Apixaban 5 MG Tab PO SCH ×2 (08:09→19:13)
[2020-06-21] MEDS: Metoprolol Tartrate 25 MG Tab PO SCH ×2 (08:10→19:14)
[2020-06-21] MEDS: Potassium Chloride 10 MEQ Tab.ER PO SCH (08:10)
[2020-06-21] MEDS: FORMOTEROL INH SCH ×2 (08:12→20:42)
[2020-06-21] MEDS: BUDESONIDE INH SCH ×2 (08:12→20:42)
[2020-06-21] MEDS: Insulin Lispro 100 Units/ML 3 ML Vial SUBCUT SCH ×4 (08:14→22:21)
[2020-06-21] MEDS: INSULN ASP PROT SUBCUT SCH ×2 (08:15→17:14)
[2020-06-21] MEDS: INSULIN ASPART SUBCUT SCH ×2 (08:15→17:14)
--- NOTE | 2020-06-21 08:52 | PCM.PN ---
- General Info Date of Service: 06/21/20 Functional Status: Reports: Pain Controlled (when getting pain medication, not before due), Tolerating Diet, Ambulating (with staff assistance to the bathroom) - Review of Systems General: Reports: No Symptoms HEENT: Reports: No Symptoms Pulmonary: Reports: Cough (one time today per patient, one time yesterday.), Other (back pain when she trys to cough. ) Cardiovascular: Reports: No Symptoms Gastrointestinal: Reports: No Symptoms Genitourinary: Reports: No Symptoms Musculoskeletal: Reports: Back Pain (middle) Skin: Reports: No Symptoms Neurological: Reports: No Symptoms Psychiatric: Reports: No Symptoms - Patient Data Vitals - Most Recent: Last Vital Signs Temp 98.6 F 06/21/20 08:00 Pulse 83 06/21/20 08:10 Resp 20 06/21/20 08:00 BP 157/71 H 06/21/20 08:10 Pulse Ox 96 06/21/20 08:00 Weight - Most Recent: 157 lb Lab Results Last 24 Hours: Laboratory Results - last 24 hr 06/20/20 06/20/20 06/20/20 Range/Units 11:54 17:32 20:07 POC Glucose 270 H 313 H 397 H (75-105) mg/dl 06/21/20 Range/Units 08:13 POC Glucose 226 H (75-105) mg/dl Med Orders - Current: Current Medications Acetaminophen (Tylenol Extra Strength) 1,000 mg PO Q6H PRN PRN Reason: Pain Last Admin: 06/20/20 04:59 Dose: 1,000 mg Documented by: Hydrocodone Bitart/Acetaminophen ([facility] 325-5 Mg) 1 tab PO Q4H PRN PRN Reason: Pain Last Admin: 06/21/20 01:56 Dose: 1 tab Documented by: Albuterol (Ventolin Hfa) 0 gm INH QID PRN PRN Reason: Shortness of Breath Apixaban (Eliquis) 5 mg PO BID [facility] Last Admin: 06/21/20 08:09 Dose: 5 mg Documented by: Fentanyl (Sublimaze) 25 mcg IVPUSH BID [facility] Last Admin: 06/21/20 08:04 Dose: 25 mcg Documented by: Furosemide (Lasix) 40 mg PO DAILY [facility] Last Admin: 06/21/20 08:09 Dose: 40 mg Documented by: Guaifenesin/Phenylephrine HCl (Robitussin Dm) 5 ml PO Q4H PRN PRN Reason: Cough Last Admin: 06/20/20 11:24 Dose: 5 ml Documented by: Insulin Human Lispro (Humalog) 0 unit SUBCUT 0800,1200,1730,2100 [facility]; Protocol Last Admin: 06/21/20 08:14 Dose: 2 unit Documented by: Magnesium Oxide (Magnesium Oxide) 500 mg PO BEDTIME [facility] Last Admin: 06/20/20 20:03 Dose: Not Given Documented by: Metoprolol Tartrate (Lopressor) 12.5 mg PO BID [facility] Last Admin: 06/21/20 08:10 Dose: 12.5 mg Documented by: Nitrofurantoin Macrocrystals (Macrobid) 100 mg PO BEDTIME [facility] Last Admin: 06/20/20 20:03 Dose: Not Given Documented by: Non-Formulary Medication (Insuln Asp Prot/Insulin Aspart [Novolog Mix 70-30]) 25 unit SUBCUT ACDINNER [facility] Last Admin: 06/20/20 17:37 Dose: 25 unit Documented by: Budesonide/Formoterol 160/4. 5mcg (Symbicort) Own Med 2 puff INH BID [facility] Last Admin: 06/21/20 08:12 Dose: 2 puff Documented by: Insuln Asp Prot/Insulin Aspart [ Novolog Mix 70-30] Own Med 40 unit SUBCUT DAILY@0800 [facility] Last Admin: 06/21/20 08:15 Dose: 40 unit Documented by: Polyethylene Glycol (Miralax) 17 gm PO DAILY [facility] Last Admin: 06/21/20 08:09 Dose: 17 gm Documented by: Potassium Chloride (Klor-Con 10) 10 meq PO DAILY [facility] Last Admin: 06/21/20 08:10 Dose: 10 meq Documented by: Simvastatin (Zocor) 40 mg PO BEDTIME [facility] Last Admin: 06/20/20 20:05 Dose: 40 mg Documented by: Sodium Chloride (Saline Flush) 10 ml FLUSH ASDIRECTED PRN PRN Reason: Keep Vein Open Discontinued Medications Potassium Chloride 20 meq/ (Premix) 100 mls @ 25 mls/hr IV ONETIME ONE Stop: 06/19/20 04:10 Last Admin: 06/19/20 01:38 Dose: 25 mls/hr Documented by: Sodium Chloride (Normal Saline) 250 mls @ 62.5 mls/hr IV ASDIRECTED [facility] Last Admin: 06/19/20 01:38 Dose: 62.5 mls/hr Documented by: Potassium Chloride 40 meq/ (Premix) 100 mls @ 25 mls/hr IV ONETIME ONE Stop: 06/19/20 14:16 Last Admin: 06/19/20 10:50 Dose: 25 mls/hr Documented by: Sodium Chloride (Normal Saline) 1,000 mls @ 250 mls/hr IV ONETIME ONE Stop: 06/19/20 14:34 Last Admin: 06/19/20 10:50 Dose: 250 mls/hr Documented by: Magnesium Oxide (Magnesium Oxide) 500 mg PO BEDTIME [facility] Last Admin: 06/20/20 20:00 Dose: 500 mg Documented by: Nitrofurantoin Macrocrystals (Macrobid) 100 mg PO BEDTIME [facility] Last Admin: 06/20/20 20:01 Dose: 100 mg Documented by: Non-Formulary Medication (Albuterol) 2 puff INH QID PRN PRN Reason: Shortness of Breath Non-Formulary Medication (Budesonide/Formoterol) 2 puff INH BID [facility] Last Admin: 06/19/20 10:39 Dose: Not Given Documented by: Non-Formulary Medication (Insuln Asp Prot/Insulin Aspart [Novolog Mix 70-30]) 40 unit SUBCUT ACBREAKFAST [facility] Last Admin: 06/19/20 08:44 Dose: Not Given Documented by: Non-Formulary Medication (Magnesium [Magnesium]) 500 mg PO BEDTIME [facility] Last Admin: 06/19/20 21:02 Dose: 500 mg Documented by: Non-Formulary Medication (Nitrofurantoin Macrocrystal [Nitrofurantoin]) 100 mg PO BEDTIME [facility] Last Admin: 06/19/20 21:02 Dose: 100 mg Documented by: Non-Formulary Medication (Rosuvastatin Calcium [Rosuvastatin Calcium]) 20 mg PO BEDTIME [facility] Last Admin: 06/20/20 20:04 Dose: Not Given Documented by: Insuln Asp Prot/Insulin Aspart [ Novolog Mix 70-30] Own Med 40 unit SUBCUT ACBREAKFAST [facility] Last Admin: 06/19/20 10:57 Dose: 40 unit Documented by: - Exam General: Alert, Oriented, Cooperative, Other (appears in pain) Neck: Supple, Trachea Midline, No JVD Lungs: Clear to Auscultation, Normal Respiratory Effort. No: Decreased Breath Sounds Cardiovascular: Regular Rate, Regular Rhythm GI/Abdominal Exam: Soft, Non-Tender Back Exam: Normal Inspection, Paraspinal Tenderness (Thoracic region bilateral), Vertebral Tenderness (Thoracic throughout ) Extremities: Normal Inspection, Normal Range of Motion, Non-Tender, No Pedal Edema, Normal Capillary Refill Skin: Warm, Dry, Intact Neurological: No New Focal Deficit, Normal Gait, Normal Speech Psy/Mental Status: Alert, Normal Affect, Normal Mood Sepsis Event Note - Evaluation Sepsis Screening Result: No Definite Risk - Focused Exam Vital Signs: Vital Signs Temp Pulse Pulse Resp BP BP Pulse Ox 06/21/20 08:10 83 157/71 H 06/21/20 08:00 98.6 F 83 20 157/71 H 96 06/21/20 04:00 97.7 F 78 18 144/84 H 93 L 06/21/20 00:00 97.8 F 75 18 141/76 H 94 L - Problem List Review Problem List Initiated/Reviewed/Updated: Yes - Plan Plan:: The patient reports that she had mechanical fall at home and hurt her back. Report to me that she has thoracic fractures. Read the report, reports no acute fractures, but does comment on compression T15, burst fractures of T9, T12. Patient does report a lot of new pain in the back from her fall. Recommend an MRI out patient Tuesday. As, this past Tuesday the MRI was not available. Patient denies any numbness, tingling, urinary/bowel incontinence. The RN Nadia reported to me the patient was thrashing around in her bed in pain this morning. When I saw this her this morning she is sitting up in bed eating breakfast, says she is in pain, but she is not thrashing. Nadia RN did also escort patient to the bathroom, with assistance. She reported her pain was a 3/10 improved. Will Continue acute admit for pain management for intractable back pain. Patient does live at home. Will plan for discharge Tuesday if the patient is able to ambulate and perform ADLS at home by herself. If not, possible swing with PT. PT did see patient Tuesday. Treating the pain.
[2020-06-21] MEDS: [UNRECOGNIZED DRUG - OTHER] SUBCUT SCH (17:14)
[2020-06-21] MEDS: Simvastatin 40 MG Tab PO SCH (19:13)
[2020-06-21] MEDS: Nitrofurantoin Monohydrate/Macrocrystalline 100 MG Cap PO SCH (19:14)
[2020-06-22] MEDS: Acetaminophen/HYDROcodone 325-5 MG Tab PO PRN ×3 (03:37→19:32)
[2020-06-22] MEDS: BUDESONIDE INH SCH ×2 (07:56→19:59)
[2020-06-22] MEDS: FORMOTEROL INH SCH ×2 (07:56→19:59)
[2020-06-22] MEDS: INSULIN ASPART SUBCUT SCH ×2 (07:56→17:06)
[2020-06-22] MEDS: INSULN ASP PROT SUBCUT SCH ×2 (07:56→17:06)
[2020-06-22] MEDS: Insulin Lispro 100 Units/ML 3 ML Vial SUBCUT SCH ×4 (07:57→20:00)
[2020-06-22] MEDS: Polyethylene Glycol 3350 Powder 17 GM Packet PO SCH (07:59)
[2020-06-22] MEDS: fentaNYL 100 MCG/2 ML SDV IVPUSH SCH (07:59)
[2020-06-22] MEDS: Metoprolol Tartrate 25 MG Tab PO SCH ×2 (08:02→19:33)
[2020-06-22] MEDS: Potassium Chloride 10 MEQ Tab.ER PO SCH (08:02)
[2020-06-22] MEDS: Apixaban 5 MG Tab PO SCH ×2 (08:03→19:32)
[2020-06-22] MEDS: Furosemide 40 MG Tab PO SCH (08:03)
[2020-06-22] MEDS: guaiFENesin/Dextromethorphan 100-10 MG/5 ML Soln 5 ML Cup PO PRN (10:16)
[2020-06-22] MEDS ORDERED: Cyclobenzaprine 10 MG Tab PO PRN (10:29)
[2020-06-22] MEDS ORDERED: fentaNYL 12 MCG/HR Transdermal Patch TRDERM SCH (10:30)
--- NOTE | 2020-06-22 10:48 | PCM.PN ---
- General Info Date of Service: 06/22/20 Functional Status: Reports: Pain Controlled (with IV pain medication, but at times not good coverage. ), Tolerating Diet, Ambulating (in hallway just before I see her) - Review of Systems General: Reports: No Symptoms HEENT: Reports: No Symptoms Pulmonary: Reports: Cough. Denies: Shortness of Breath, Sputum Cardiovascular: Reports: No Symptoms Gastrointestinal: Reports: No Symptoms Genitourinary: Reports: No Symptoms Musculoskeletal: Reports: Back Pain (middle and lower) Skin: Reports: No Symptoms Neurological: Reports: No Symptoms Psychiatric: Reports: No Symptoms - Patient Data Vitals - Most Recent: Last Vital Signs Temp 97.4 F 06/22/20 08:00 Pulse 82 06/22/20 08:02 Resp 16 06/22/20 08:00 BP 143/81 H 06/22/20 08:02 Pulse Ox 93 L 06/22/20 08:00 Weight - Most Recent: 157 lb Lab Results Last 24 Hours: Laboratory Results - last 24 hr 06/21/20 06/21/20 06/21/20 Range/Units 11:52 17:13 20:38 POC Glucose 335 H 340 H 438 H* (75-105) mg/dl 06/22/20 Range/Units 07:49 POC Glucose 248 H (75-105) mg/dl Med Orders - Current: Current Medications Acetaminophen (Tylenol Extra Strength) 1,000 mg PO Q6H PRN PRN Reason: Pain Last Admin: 06/20/20 04:59 Dose: 1,000 mg Documented by: Hydrocodone Bitart/Acetaminophen (Sherwood 325-5 Mg) 1 tab PO Q4H PRN PRN Reason: Pain Last Admin: 06/22/20 10:00 Dose: 1 tab Documented by: Albuterol (Ventolin Hfa) 0 gm INH QID PRN PRN Reason: Shortness of Breath Apixaban (Eliquis) 5 mg PO BID [facility] Last Admin: 06/22/20 08:03 Dose: 5 mg Documented by: Cyclobenzaprine HCl (Flexeril) 10 mg PO TID PRN PRN Reason: Muscle Spasm Fentanyl (Sublimaze) 25 mcg IVPUSH BID [facility] Last Admin: 06/22/20 07:59 Dose: 25 mcg Documented by: Fentanyl (Duragesic) 12 mcg TRDERM Q72H [facility] Furosemide (Lasix) 40 mg PO DAILY [facility] Last Admin: 06/22/20 08:03 Dose: 40 mg Documented by: Guaifenesin/Phenylephrine HCl (Robitussin Dm) 5 ml PO Q4H PRN PRN Reason: Cough Last Admin: 06/22/20 10:16 Dose: 5 ml Documented by: Insulin Human Lispro (Humalog) 0 unit SUBCUT 0800,1200,1730,2100 [facility]; Protocol Last Admin: 06/22/20 07:57 Dose: 2 unit Documented by: Magnesium Oxide (Magnesium Oxide) 500 mg PO BEDTIME [facility] Last Admin: 06/21/20 19:14 Dose: 500 mg Documented by: Metoprolol Tartrate (Lopressor) 12.5 mg PO BID [facility] Last Admin: 06/22/20 08:02 Dose: 12.5 mg Documented by: Nitrofurantoin Macrocrystals (Macrobid) 100 mg PO BEDTIME [facility] Last Admin: 06/21/20 19:14 Dose: 100 mg Documented by: Non-Formulary Medication (Insuln Asp Prot/Insulin Aspart [Novolog Mix 70-30]) 25 unit SUBCUT ACDINNER [facility] Last Admin: 06/21/20 17:14 Dose: 25 unit Documented by: Budesonide/Formoterol 160/4. 5mcg (Symbicort) Own Med 2 puff INH BID [facility] Last Admin: 06/22/20 07:56 Dose: 2 puff Documented by: Insuln Asp Prot/Insulin Aspart [ Novolog Mix 70-30] Own Med 40 unit SUBCUT DAILY@0800 [facility] Last Admin: 06/22/20 07:56 Dose: 40 unit Documented by: Polyethylene Glycol (Miralax) 17 gm PO DAILY [facility] Last Admin: 06/22/20 07:59 Dose: 17 gm Documented by: Potassium Chloride (Klor-Con 10) 10 meq PO DAILY [facility] Last Admin: 06/22/20 08:02 Dose: 10 meq Documented by: Simvastatin (Zocor) 40 mg PO BEDTIME [facility] Last Admin: 06/21/20 19:13 Dose: 40 mg Documented by: Sodium Chloride (Saline Flush) 10 ml FLUSH ASDIRECTED PRN PRN Reason: Keep Vein Open Discontinued Medications Potassium Chloride 20 meq/ (Premix) 100 mls @ 25 mls/hr IV ONETIME ONE Stop: 06/19/20 04:10 Last Admin: 06/19/20 01:38 Dose: 25 mls/hr Documented by: Sodium Chloride (Normal Saline) 250 mls @ 62.5 mls/hr IV ASDIRECTED [facility] Last Admin: 06/19/20 01:38 Dose: 62.5 mls/hr Documented by: Potassium Chloride 40 meq/ (Premix) 100 mls @ 25 mls/hr IV ONETIME ONE Stop: 06/19/20 14:16 Last Admin: 06/19/20 10:50 Dose: 25 mls/hr Documented by: Sodium Chloride (Normal Saline) 1,000 mls @ 250 mls/hr IV ONETIME ONE Stop: 06/19/20 14:34 Last Admin: 06/19/20 10:50 Dose: 250 mls/hr Documented by: Magnesium Oxide (Magnesium Oxide) 500 mg PO BEDTIME [facility] Last Admin: 06/20/20 20:00 Dose: 500 mg Documented by: Nitrofurantoin Macrocrystals (Macrobid) 100 mg PO BEDTIME [facility] Last Admin: 06/20/20 20:01 Dose: 100 mg Documented by: Non-Formulary Medication (Albuterol) 2 puff INH QID PRN PRN Reason: Shortness of Breath Non-Formulary Medication (Budesonide/Formoterol) 2 puff INH BID [facility] Last Admin: 06/19/20 10:39 Dose: Not Given Documented by: Non-Formulary Medication (Insuln Asp Prot/Insulin Aspart [Novolog Mix 70-30]) 40 unit SUBCUT ACBREAKFAST [facility] Last Admin: 06/19/20 08:44 Dose: Not Given Documented by: Non-Formulary Medication (Magnesium [Magnesium]) 500 mg PO BEDTIME [facility] Last Admin: 06/19/20 21:02 Dose: 500 mg Documented by: Non-Formulary Medication (Nitrofurantoin Macrocrystal [Nitrofurantoin]) 100 mg PO BEDTIME [facility] Last Admin: 06/19/20 21:02 Dose: 100 mg Documented by: Non-Formulary Medication (Rosuvastatin Calcium [Rosuvastatin Calcium]) 20 mg PO BEDTIME [facility] Last Admin: 06/20/20 20:04 Dose: Not Given Documented by: Insuln Asp Prot/Insulin Aspart [ Novolog Mix 70-30] Own Med 40 unit SUBCUT ACBREAKFAST [facility] Last Admin: 06/19/20 10:57 Dose: 40 unit Documented by: - Exam General: Alert, Oriented, Cooperative, No Acute Distress Neck: Supple, Trachea Midline, No JVD Lungs: Clear to Auscultation, Normal Respiratory Effort Cardiovascular: Regular Rate, Regular Rhythm, Rubs GI/Abdominal Exam: Normal Bowel Sounds, Soft, Non-Tender, No Organomegaly, No Distention Back Exam: Normal Inspection, Decreased Range of Motion (due to pain, twisting, bending. ), Muscle Spasm (mid thoracic), Paraspinal Tenderness (bilateral thoracic), Vertebral Tenderness (all thoracic). No: CVA Tenderness (L), CVA Tenderness (R) Extremities: Normal Inspection, Normal Range of Motion, Non-Tender, No Pedal Edema, Normal Capillary Refill Peripheral Pulses: 2+: Radial (L), Radial (R), Posterior Tibial (L), Posterior Tibial (R) Skin: Warm, Dry, Intact Neurological: Normal Gait, Normal Speech Psy/Mental Status: Alert, Normal Affect, Normal Mood Sepsis Event Note - Evaluation Sepsis Screening Result: No Definite Risk - Focused Exam Vital Signs: Vital Signs Temp Pulse Pulse Resp BP BP Pulse Ox 06/22/20 08:02 82 143/81 H 06/22/20 08:00 97.4 F 82 16 143/81 H 93 L 06/22/20 03:42 98 F 82 18 128/68 95 06/22/20 00:00 97.6 F 83 18 109/73 94 L - Problem List Review Problem List Initiated/Reviewed/Updated: Yes - My Orders Last 24 Hours: My Active Orders 06/22/20 10:27 Chest 2V [CR] Stat 06/22/20 10:29 Cyclobenzaprine [Flexeril] 10 mg PO TID PRN 06/22/20 10:30 fentaNYL [Duragesic] 12 mcg TRDERM Q72H - Plan Plan:: 06/21/2020 0810am The patient reports that she had mechanical fall at home and hurt her back. Report to me that she has thoracic fractures. Read the report, reports no acute fractures, but does comment on compression T15, burst fractures of T9, T12. Patient does report a lot of new pain in the back from her fall. Recommend an MRI out patient Tuesday. As, this past Tuesday the MRI was not available. Patient denies any numbness, tingling, urinary/bowel incontinence. The RN Nadia reported to me the patient was thrashing around in her bed in pain this morning. When I saw this her this morning she is sitting up in bed eating breakfast, says she is in pain, but she is not thrashing. Nadia RN did also escort patient to the bathroom, with assistance. She reported her pain was a 3/10 improved. Will Continue acute admit for pain management for intractable back pain. Patient does live at home. Will plan for discharge Tuesday if the patient is able to ambulate and perform ADLS at home by herself. If not, possible swing with PT. PT did see patient Tuesday. Treating the pain. 06/22/2020 1000am This patient reports that she is still having a lot of pain in between her Fentanyl IVs. She reports that just sitting in the chair causes her a lot of pain. She reports that getting up and down causes her a lot of pain. She does this with assistance. She reports ambulating does tend to make her pain better. She reports that it feels like the pain is constant in her middle back, but does wax and wane. She also reports her cough today has become more frequent. She reports it is not productive and makes her hurt in her back when she does cough. So she is trying not to cough. She reports she is not short of breath. Denies fever. I will order a chest xray that will be done today. I will order an incentive spirometer for her as well and encourage deep breathing. Also, will plan to start working this patient closer to discharge and provide more around the clock pain coverage. I will keep her Sherwood order intact. I will discharge her Fentanyl IV, but add Fentanyl patch. I will also add Flexeril for muscle spasm as well. Her PCP will see her tomorrow to evaluate.
[2020-06-22] MEDS: [UNRECOGNIZED DRUG - OTHER] SUBCUT SCH (17:06)
[2020-06-22] MEDS ORDERED: Levofloxacin/Dextrose 5%-Water 500 MG in Premix Bag 1 BAG IV SCH (18:45)
--- NOTE | 2020-06-22 18:46 | PCM.SN.2 ---
- Free Text/Narrative Note: CXR: LLL small possible early infiltrate. Started on Levaquin IV.
[2020-06-22] MEDS: Levofloxacin/Dextrose 5%-Water 500 MG in Premix Bag 1 BAG IV SCH (19:32)
[2020-06-22] MEDS: Nitrofurantoin Monohydrate/Macrocrystalline 100 MG Cap PO SCH (19:32)
[2020-06-22] MEDS: Simvastatin 40 MG Tab PO SCH (19:32)
[2020-06-23] MEDS: Acetaminophen/HYDROcodone 325-5 MG Tab PO PRN ×4 (03:00→23:32)
[2020-06-23] MEDS: FORMOTEROL INH SCH ×2 (08:03→19:30)
[2020-06-23] MEDS: BUDESONIDE INH SCH ×2 (08:03→19:30)
[2020-06-23] MEDS: Furosemide 40 MG Tab PO SCH (08:03)
[2020-06-23] MEDS: Metoprolol Tartrate 25 MG Tab PO SCH ×2 (08:04→19:54)
[2020-06-23] MEDS: Potassium Chloride 10 MEQ Tab.ER PO SCH (08:04)
[2020-06-23] MEDS: Polyethylene Glycol 3350 Powder 17 GM Packet PO SCH (08:04)
[2020-06-23] MEDS: Apixaban 5 MG Tab PO SCH ×2 (08:04→19:54)
[2020-06-23] MEDS: Insulin Lispro 100 Units/ML 3 ML Vial SUBCUT SCH ×4 (08:07→21:00)
[2020-06-23] MEDS: INSULIN ASPART SUBCUT SCH (09:19)
[2020-06-23] MEDS: INSULN ASP PROT SUBCUT SCH (09:19)
[2020-06-23] MEDS ORDERED: fentaNYL 25 MCG/HR Transdermal Patch TRDERM SCH (09:30)
--- NOTE | 2020-06-23 09:38 | PCM.PN ---
- General Info Date of Service: 06/23/20 Subjective Update: Leslie states the pain in her back isn't improving. Admits increased discomfort with coughing and deep breathing. When getting up she has increased discomfort but once ambulating it seems to improve. Functional Status: Denies: Pain Controlled Pain Score: 4 - Review of Systems General: Reports: No Symptoms HEENT: Reports: No Symptoms Pulmonary: Reports: Cough Cardiovascular: Reports: No Symptoms Gastrointestinal: Reports: No Symptoms Musculoskeletal: Reports: Back Pain Skin: Reports: No Symptoms Neurological: Reports: No Symptoms Psychiatric: Reports: Depression - Patient Data Vitals - Most Recent: Last Vital Signs Temp 98.3 F 06/23/20 08:00 Pulse 81 06/23/20 08:04 Resp 16 06/23/20 08:00 BP 126/75 06/23/20 08:04 Pulse Ox 97 06/23/20 08:00 Weight - Most Recent: 157 lb Lab Results Last 24 Hours: Laboratory Results - last 24 hr 06/22/20 06/22/20 06/22/20 Range/Units 11:25 17:03 19:58 WBC (5.0-10.0) 10^3/uL RBC (4.00-5.50) 10^6/uL Hgb (12.0-16.0) g/dL Hct (37.0-47.0) % MCV (82.0-94.0) fL MCH (27.0-32.0) pg MCHC (33.0-38.0) g/dL RDW Coeff of Carter (11.0-15.0) % Plt Count (150-400) 10^3/uL Neut % (Auto) (35-85) % Lymph % (Auto) (10-55) % [place] % (Auto) (0-16) % Eos % (Auto) (0-5) % Baso % (Auto) (0-3) % Neut # (Auto) (1.80-7.00) 10^3/uL Lymph # (Auto) (1.00-4.80) 10^3/uL [place] # (Auto) (0.00-0.80) 10^3/uL Eos # (Auto) (0.00-0.45) 10^3/uL Baso # (Auto) 10^3/uL Sodium (136-145) mEq/L Potassium (3.5-5.0) mEq/L Chloride (98-106) mEq/L Carbon Dioxide (21-32) mmol/L BUN (7-18) mg/dL Creatinine (0.6-1.0) mg/dL Est Cr Clr Drug Dosing mL/min Estimated GFR (MDRD) (>=60) mL/min Glucose (75-99) mg/dL POC Glucose 397 H 309 H 492 H* (75-105) mg/dl Calcium (8.4-10.1) mg/dL 06/23/20 06/23/20 Range/Units 06:55 06:55 WBC 7.3 (5.0-10.0) 10^3/uL RBC 4.85 (4.00-5.50) 10^6/uL Hgb 13.5 (12.0-16.0) g/dL Hct 41.9 (37.0-47.0) % MCV 86.4 (82.0-94.0) fL MCH 27.8 (27.0-32.0) pg MCHC 32.2 L (33.0-38.0) g/dL RDW Coeff of Carter 15.8 H (11.0-15.0) % Plt Count 244 (150-400) 10^3/uL Neut % (Auto) 59.5 (35-85) % Lymph % (Auto) 23.9 (10-55) % [place] % (Auto) 12.9 (0-16) % Eos % (Auto) 3.6 (0-5) % Baso % (Auto) 0.1 (0-3) % Neut # (Auto) 4.35 (1.80-7.00) 10^3/uL Lymph # (Auto) 1.75 (1.00-4.80) 10^3/uL [place] # (Auto) 0.94 H (0.00-0.80) 10^3/uL Eos # (Auto) 0.26 (0.00-0.45) 10^3/uL Baso # (Auto) 0.01 10^3/uL Sodium 136 (136-145) mEq/L Potassium 4.7 (3.5-5.0) mEq/L Chloride 101 (98-106) mEq/L Carbon Dioxide 31 (21-32) mmol/L BUN 15 (7-18) mg/dL Creatinine 1.2 H (0.6-1.0) mg/dL Est Cr Clr Drug Dosing 26.33 mL/min Estimated GFR (MDRD) 43 L (>=60) mL/min Glucose 159 H (75-99) mg/dL POC Glucose (75-105) mg/dl Calcium 9.1 (8.4-10.1) mg/dL Med Orders - Current: Current Medications Acetaminophen (Tylenol Extra Strength) 1,000 mg PO Q6H PRN PRN Reason: Pain Last Admin: 06/20/20 04:59 Dose: 1,000 mg Documented by: Hydrocodone Bitart/Acetaminophen (Concepcion 325-5 Mg) 1 tab PO Q4H PRN PRN Reason: Pain Last Admin: 06/23/20 07:14 Dose: 1 tab Documented by: Albuterol (Ventolin Hfa) 0 gm INH QID PRN PRN Reason: Shortness of Breath Apixaban (Eliquis) 5 mg PO BID [facility] Last Admin: 06/23/20 08:04 Dose: 5 mg Documented by: Cyclobenzaprine HCl (Flexeril) 10 mg PO TID PRN PRN Reason: Muscle Spasm Last Admin: 06/22/20 14:36 Dose: 10 mg Documented by: Fentanyl (Duragesic) 25 mcg TRDERM Q72H [facility] Furosemide (Lasix) 40 mg PO DAILY [facility] Last Admin: 06/23/20 08:03 Dose: 40 mg Documented by: Guaifenesin/Phenylephrine HCl (Robitussin Dm) 5 ml PO Q4H PRN PRN Reason: Cough Last Admin: 06/22/20 10:16 Dose: 5 ml Documented by: Levofloxacin/Dextrose 500 mg/ (Premix) 100 mls @ 100 mls/hr IV Q24H [facility] Last Admin: 06/22/20 19:32 Dose: 100 mls/hr Documented by: Insulin Human Lispro (Humalog) 0 unit SUBCUT 0800,1200,1730,2100 [facility]; Protocol Last Admin: 06/23/20 08:07 Dose: 1 unit Documented by: Insulin NPH Beef/Pork (Humulin 70-30) 0 unit SQ BIDAC [facility] Magnesium Oxide (Magnesium Oxide) 500 mg PO BEDTIME [facility] Last Admin: 06/22/20 19:32 Dose: 500 mg Documented by: Metoprolol Tartrate (Lopressor) 12.5 mg PO BID [facility] Last Admin: 06/23/20 08:04 Dose: 12.5 mg Documented by: Nitrofurantoin Macrocrystals (Macrobid) 100 mg PO BEDTIME [facility] Last Admin: 06/22/20 19:32 Dose: 100 mg Documented by: Budesonide/Formoterol 160/4. 5mcg (Symbicort) Own Med 2 puff INH BID [facility] Last Admin: 06/23/20 08:03 Dose: 2 puff Documented by: Polyethylene Glycol (Miralax) 17 gm PO DAILY [facility] Last Admin: 06/23/20 08:04 Dose: 17 gm Documented by: Potassium Chloride (Klor-Con 10) 10 meq PO DAILY [facility] Last Admin: 06/23/20 08:04 Dose: 10 meq Documented by: Simvastatin (Zocor) 40 mg PO BEDTIME [facility] Last Admin: 06/22/20 19:32 Dose: 40 mg Documented by: Sodium Chloride (Saline Flush) 10 ml FLUSH ASDIRECTED PRN PRN Reason: Keep Vein Open Discontinued Medications Fentanyl (Sublimaze) 25 mcg IVPUSH BID [facility] Last Admin: 06/22/20 07:59 Dose: 25 mcg Documented by: Fentanyl (Duragesic) 12 mcg TRDERM Q72H [facility] Last Admin: 06/22/20 10:45 Dose: 12 mcg Documented by: Potassium Chloride 20 meq/ (Premix) 100 mls @ 25 mls/hr IV ONETIME ONE Stop: 06/19/20 04:10 Last Admin: 06/19/20 01:38 Dose: 25 mls/hr Documented by: Sodium Chloride (Normal Saline) 250 mls @ 62.5 mls/hr IV ASDIRECTED [facility] Last Admin: 06/19/20 01:38 Dose: 62.5 mls/hr Documented by: Potassium Chloride 40 meq/ (Premix) 100 mls @ 25 mls/hr IV ONETIME ONE Stop: 06/19/20 14:16 Last Admin: 06/19/20 10:50 Dose: 25 mls/hr Documented by: Sodium Chloride (Normal Saline) 1,000 mls @ 250 mls/hr IV ONETIME ONE Stop: 06/19/20 14:34 Last Admin: 06/19/20 10:50 Dose: 250 mls/hr Documented by: Levofloxacin/Dextrose 500 mg/ (Premix) 100 mls @ 100 mls/hr IV Q24H [facility] Last Admin: 06/22/20 19:43 Dose: Not Given Documented by: Magnesium Oxide (Magnesium Oxide) 500 mg PO BEDTIME [facility] Last Admin: 06/20/20 20:00 Dose: 500 mg Documented by: Nitrofurantoin Macrocrystals (Macrobid) 100 mg PO BEDTIME [facility] Last Admin: 06/20/20 20:01 Dose: 100 mg Documented by: Non-Formulary Medication (Albuterol) 2 puff INH QID PRN PRN Reason: Shortness of Breath Non-Formulary Medication (Budesonide/Formoterol) 2 puff INH BID [facility] Last Admin: 06/19/20 10:39 Dose: Not Given Documented by: Non-Formulary Medication (Insuln Asp Prot/Insulin Aspart [Novolog Mix 70-30]) 25 unit SUBCUT ACDINNER [facility] Last Admin: 06/22/20 17:06 Dose: 25 unit Documented by: Non-Formulary Medication (Insuln Asp Prot/Insulin Aspart [Novolog Mix 70-30]) 40 unit SUBCUT ACBREAKFAST [facility] Last Admin: 06/19/20 08:44 Dose: Not Given Documented by: Non-Formulary Medication (Magnesium [Magnesium]) 500 mg PO BEDTIME [facility] Last Admin: 06/19/20 21:02 Dose: 500 mg Documented by: Non-Formulary Medication (Nitrofurantoin Macrocrystal [Nitrofurantoin]) 100 mg PO BEDTIME [facility] Last Admin: 06/19/20 21:02 Dose: 100 mg Documented by: Non-Formulary Medication (Rosuvastatin Calcium [Rosuvastatin Calcium]) 20 mg PO BEDTIME [facility] Last Admin: 06/20/20 20:04 Dose: Not Given Documented by: Insuln Asp Prot/Insulin Aspart [ Novolog Mix 70-30] Own Med 40 unit SUBCUT ACBREAKFAST [facility] Last Admin: 06/19/20 10:57 Dose: 40 unit Documented by: Insuln Asp Prot/Insulin Aspart [ Novolog Mix 70-30] Own Med 40 unit SUBCUT DAILY@0800 [facility] Last Admin: 06/23/20 09:19 Dose: Not Given Documented by: - Exam General: Alert, Mild Distress Lungs: Clear to Auscultation, Normal Respiratory Effort Cardiovascular: Regular Rate, Regular Rhythm, Murmurs GI/Abdominal Exam: Normal Bowel Sounds, Soft, Non-Tender, No Distention Extremities: Normal Inspection, No Pedal Edema Skin: Warm, Dry, Intact Neurological: No New Focal Deficit Psy/Mental Status: Alert, Depressed Sepsis Event Note - Evaluation Sepsis Screening Result: No Definite Risk - Focused Exam Vital Signs: Vital Signs Temp Pulse Pulse Resp BP BP Pulse Ox 06/23/20 08:04 81 126/75 06/23/20 08:00 98.3 F 81 16 126/75 97 06/23/20 04:00 98.5 F 84 16 136/75 93 L 06/22/20 23:13 97.8 F 78 16 117/53 L 93 L - Problem List & Annotations (1) Intractable back pain SNOMED Code(s): 564001560 Code(s): M54.9 - DORSALGIA, UNSPECIFIED Status: Acute Current Visit: Yes (2) Infiltrate of lower lobe of left lung present on imaging study SNOMED Code(s): 953916974 Code(s): R91.8 - OTHER NONSPECIFIC ABNORMAL FINDING OF LUNG FIELD Status: Acute Current Visit: Yes - Problem List Review Problem List Initiated/Reviewed/Updated: Yes - My Orders Last 24 Hours: My Active Orders 06/23/20 09:30 fentaNYL [Duragesic] 25 mcg TRDERM Q72H 06/23/20 17:00 Insulin NPH Hum/Reg Insulin Hm [Humulin 70-30] See Dose Instructions SQ BIDAC - Plan Plan:: 06/21/2020 0810am The patient reports that she had mechanical fall at home and hurt her back. Report to me that she has thoracic fractures. Read the report, reports no acute fractures, but does comment on compression T15, burst fractures of T9, T12. Patient does report a lot of new pain in the back from her fall. Recommend an MRI out patient Tuesday. As, this past Tuesday the MRI was not available. Patient denies any numbness, tingling, urinary/bowel incontinence. The RN Nadia reported to me the patient was thrashing around in her bed in pain this morning. When I saw this her this morning she is sitting up in bed eating breakfast, says she is in pain, but she is not thrashing. Naida PARHAM did also escort patient to the bathroom, with assistance. She reported her pain was a 3/10 improved. Will Continue acute admit for pain management for intractable back pain. Patient does live at home. Will plan for discharge Tuesday if the patient is able to ambulate and perform ADLS at home by herself. If not, possible swing with PT. PT did see patient Tuesday. Treating the pain. 06/22/2020 1000am This patient reports that she is still having a lot of pain in between her Fentanyl IVs. She reports that just sitting in the chair causes her a lot of pain. She reports that getting up and down causes her a lot of pain. She does this with assistance. She reports ambulating does tend to make her pain better. She reports that it feels like the pain is constant in her middle back, but does wax and wane. She also reports her cough today has become more frequent. She reports it is not productive and makes her hurt in her back when she does cough. So she is trying not to cough. She reports she is not short of breath. Denies fever. I will order a chest xray that will be done today. I will order an incentive spirometer for her as well and encourage deep breathing. Also, will plan to start working this patient closer to discharge and provide more around the clock pain coverage. I will keep her Concepcion order intact. I will discharge her Fentanyl IV, but add Fentanyl patch. I will also add Flexeril for muscle spasm as well. Her PCP will see her tomorrow to evaluate. 06/23/2020 0930am Patient reports she continues to have moderate amount of discomfort in her back. She was switched from IV Fentanyl yesterday to patch and states it doesn't seem to be helping. We will proceed with increasing patch to 25mcg. Will continue IV Levaquin with concerns of LLL infiltrate noted per radiologist on chest x-ray. Physical therapy will see Leslie again today. Consulted with Dr. Anna and will look at getting MRI of the thoracic spine d/t significant amount of mid back pain.
[2020-06-23] MEDS ORDERED: Insulin NPH HUM/REG Insulin HM 100 UNIT/ML 3 ML Vial SQ SCH ×3 (10:00→17:30)
[2020-06-23] MEDS: Levofloxacin/Dextrose 5%-Water 500 MG in Premix Bag 1 BAG IV SCH (19:54)
[2020-06-23] MEDS: Simvastatin 40 MG Tab PO SCH (19:54)
[2020-06-23] MEDS: Nitrofurantoin Monohydrate/Macrocrystalline 100 MG Cap PO SCH (19:54)
[2020-06-24] MEDS: BUDESONIDE INH SCH (07:50)
[2020-06-24] MEDS: Potassium Chloride 10 MEQ Tab.ER PO SCH (07:50)
[2020-06-24] MEDS: FORMOTEROL INH SCH (07:50)
[2020-06-24] MEDS: Apixaban 5 MG Tab PO SCH (07:50)
[2020-06-24] MEDS: Metoprolol Tartrate 25 MG Tab PO SCH (07:51)
[2020-06-24] MEDS: Furosemide 40 MG Tab PO SCH (07:51)
[2020-06-24] MEDS: Polyethylene Glycol 3350 Powder 17 GM Packet PO SCH (07:52)
[2020-06-24] MEDS: Acetaminophen/HYDROcodone 325-5 MG Tab PO PRN (07:56)
[2020-06-24] MEDS ORDERED: Insulin NPH HUM/REG Insulin HM 100 UNIT/ML 3 ML Vial SQ SCH (08:00)
[2020-06-24] MEDS: Insulin Lispro 100 Units/ML 3 ML Vial SUBCUT SCH (08:01)
[2020-06-24 08:06] VITALS: BP 109/60; PULSE 88
[2020-06-24] MEDS: Acetaminophen 500 MG Tab PO PRN (10:04)
--- NOTE | 2020-06-25 09:09 | DISCH ---
Discharge summary to swing bed. DISCHARGE DIAGNOSIS: 1. INTRACTABLE MID BACK PAIN. 2. LEFT LOWER LOBE INFILTRATE. ADMISSION DIAGNOSES: 1. Syncopal episode. 2. Hypokalemia, corrected. 3. Atrial fibrillation, chronic. 4. Diabetes mellitus type 2. HISTORY OF PRESENT ILLNESS: Leslie is a pleasant female who was seen in the emergency room after having the episode of syncope while getting up to go to bed. She was found to have potassium of 2.7, was admitted to the hospital for observation status to closely monitor with neuro checks. HOSPITAL COURSE: The patient did not have any more syncopal episodes during the hospital stay; however, she started developing some intractable back pain, which CT scan of the thoracic spine was completed. No findings were suspicious for any acute fractures; however, they did recommend further evaluation with a dedicated MRI due to patient's intractable back pain. She also underwent CT of the head that showed no acute intracranial processes. The patient started to develop a little bit of worsening of cough during her hospital stay and had a repeat chest x-ray that was initially clear that did show concern of a possible new onset of left lower lobe infiltrate. She was started on IV Levaquin at that time. The patient continued to have back pain, was initially on IV pain management in which we did attempt to transition over to fentanyl patch with hydrocodone as needed. Pain continues to persist. The patient states that with movement, it seems to be worse. If sitting still, pain does subside and is tolerable. PHYSICAL EXAMINATION: VITAL SIGNS: Have been stable. The patient has remained afebrile. Last set of vital signs show blood pressure of 109/60 with a respiratory rate of 20, O2 is 95% on room air with pulse of 88 and temp 97.7. GENERAL: Pleasant cooperative female. While sitting, she does not appear to be in any acute distress. HEENT: Grossly unremarkable. LUNGS: Clear to auscultation. I really did not hear any adventitious sounds. CARDIAC: Regular rate, irregular rhythm. Systolic murmur noted. No pedal edema is noted. BACK: Does reveal tenderness with palpation to the mid thoracic area along the spinous process and paraspinal region. LABORATORY WORK: Potassium, again initially was 2.7, currently 4.7. Creatinine stabilized at 1.4 for patient. Blood sugars continue to be slightly elevated. White blood count has been within normal limits. CRP is slightly elevated at 5.8 today. DISCHARGE INSTRUCTIONS: The patient has been on IV antibiotics that was started over the weekend, Levaquin 500 mg daily. We will continue with IV antibiotics in which we will place patient in swing bed care at this point in time. We will proceed with an MRI of the back on Tuesday. We will continue with pain management to see if we get any relief of her discomfort. The patient is in complete agreement. DISPOSITION: Transfer to swing bed care. Please use discharge summary for hospital H and P. ROSMERY/VERONICA /[id number]
== END 2020-06-24 10:38 | disposition swing bed (61) | DRG 552 ==
LOC: CC.ED 22:40 → CC.MS 23:42 → UNDOADMOB 23:48 → CC.MS 23:48 → OBSVTOIN 06-20 09:48
PROVIDERS: ADMIT Physician Assistant Medical; ATTEND Family Medicine
DX: R55 Syncope and collapse (principal); M54.6 Pain in thoracic spine; I48.20 Chronic atrial fibrillation, unspecified; E87.6 Hypokalemia; R91.8 Other nonspecific abnormal finding of lung field; I10 Essential (primary) hypertension; E11.9 Type 2 diabetes mellitus without complications; Z79.899 Other long term (current) drug therapy; J45.909 Unspecified asthma, uncomplicated; K59.09 Other constipation; I25.10 Atherosclerotic heart disease of native coronary artery without angina pectoris; K57.90 Diverticulosis of intestine, part unspecified, without perforation or abscess without bleeding; Z87.440 Personal history of urinary (tract) infections; E78.00 Pure hypercholesterolemia, unspecified; L30.9 Dermatitis, unspecified; I25.2 Old myocardial infarction; Z86.010 Personal history of colon polyps; Z79.01 Long term (current) use of anticoagulants; Z79.4 Long term (current) use of insulin; K52.9 Noninfective gastroenteritis and colitis, unspecified; S22.001A Stable burst fracture of unspecified thoracic vertebra, initial encounter for closed fracture; S06.9X9A Unspecified intracranial injury with loss of consciousness of unspecified duration, initial encounter; S00.81XA Abrasion of other part of head, initial encounter; K21.9 Gastro-esophageal reflux disease without esophagitis; Z87.442 Personal history of urinary calculi; M19.90 Unspecified osteoarthritis, unspecified site; Z98.49 Cataract extraction status, unspecified eye; Z90.49 Acquired absence of other specified parts of digestive tract; W19.XXXA Unspecified fall, initial encounter; Y92.009 Unspecified place in unspecified non-institutional (private) residence as the place of occurrence of the external cause
CPT/HCPCS: 36415; 70450; 71046; 72070; 72128; 80048; 80053; 82550; 82962; 83615; 83735; 84484; 85025; 85610; 85730; 86140; 93005; 93010; 96365; 96366; 97110-GP; 97161-GP; 97530-GP; 99285-25; A9270-GY; G0378; J1815-GY; J1956; J3010; J3480; J7030; J7050

== ENCOUNTER 2020-06-24 10:38 | Inpatient (IN) | payer MEDICARE, BC ==
[2020-06-24] MEDS ORDERED: guaiFENesin/Dextromethorphan 100-10 MG/5 ML Soln 5 ML Cup PO PRN (11:13)
[2020-06-24] MEDS ORDERED: Sodium Chloride 0.9% 10 ML Syringe FLUSH PRN ×2 (11:13)
[2020-06-24] MEDS ORDERED: ALBUTEROL INH PRN (11:13)
[2020-06-24] MEDS ORDERED: Acetaminophen 500 MG Tab PO PRN (11:13)
[2020-06-24] MEDS: Insulin Lispro 100 Units/ML 3 ML Vial SUBCUT SCH ×3 (11:56→20:18)
[2020-06-24] MEDS: Acetaminophen/HYDROcodone 325-5 MG Tab PO PRN ×3 (12:38→21:40)
[2020-06-24] MEDS: Nitrofurantoin Monohydrate/Macrocrystalline 100 MG Cap PO SCH (17:21)
[2020-06-24] MEDS: Insulin NPH HUM/REG Insulin HM 100 UNIT/ML 3 ML Vial SQ SCH (17:22)
[2020-06-24] MEDS: Levofloxacin/Dextrose 5%-Water 500 MG in Premix Bag 1 BAG IV SCH (20:16)
[2020-06-24] MEDS: Apixaban 5 MG Tab PO SCH (20:17)
[2020-06-24] MEDS: Metoprolol Tartrate 25 MG Tab PO SCH (20:17)
[2020-06-24] MEDS: Simvastatin 40 MG Tab PO SCH (20:17)
[2020-06-24] MEDS: FORMOTEROL INH SCH (20:18)
[2020-06-24] MEDS: BUDESONIDE INH SCH (20:18)
[2020-06-25] MEDS: Potassium Chloride 10 MEQ Tab.ER PO SCH (07:28)
[2020-06-25] MEDS: Apixaban 5 MG Tab PO SCH ×2 (07:28→19:45)
[2020-06-25] MEDS: Polyethylene Glycol 3350 Powder 17 GM Packet PO SCH (07:28)
[2020-06-25] MEDS: Furosemide 40 MG Tab PO SCH (07:28)
[2020-06-25] MEDS: Metoprolol Tartrate 25 MG Tab PO SCH ×2 (07:39→19:45)
[2020-06-25] MEDS: Insulin Lispro 100 Units/ML 3 ML Vial SUBCUT SCH ×4 (07:41→20:04)
[2020-06-25] MEDS: BUDESONIDE INH SCH ×2 (07:41→19:40)
[2020-06-25] MEDS: Insulin NPH HUM/REG Insulin HM 100 UNIT/ML 3 ML Vial SQ SCH ×2 (07:41→17:20)
[2020-06-25] MEDS: FORMOTEROL INH SCH ×2 (07:41→19:40)
[2020-06-25] MEDS: Cyclobenzaprine 10 MG Tab PO PRN (09:52)
[2020-06-25] MEDS: Nitrofurantoin Monohydrate/Macrocrystalline 100 MG Cap PO SCH (17:28)
[2020-06-25] MEDS: Simvastatin 40 MG Tab PO SCH (19:45)
[2020-06-25] MEDS: Levofloxacin/Dextrose 5%-Water 500 MG in Premix Bag 1 BAG IV SCH (19:45)
[2020-06-25] MEDS: Acetaminophen/HYDROcodone 325-5 MG Tab PO PRN (20:46)
[2020-06-26] MEDS: Metoprolol Tartrate 25 MG Tab PO SCH ×2 (07:34→19:42)
[2020-06-26] MEDS: Furosemide 40 MG Tab PO SCH (07:34)
[2020-06-26] MEDS: Apixaban 5 MG Tab PO SCH ×2 (07:34→19:40)
[2020-06-26] MEDS: Acetaminophen/HYDROcodone 325-5 MG Tab PO PRN ×2 (07:34→17:21)
[2020-06-26] MEDS: Potassium Chloride 10 MEQ Tab.ER PO SCH (07:35)
[2020-06-26] MEDS: Polyethylene Glycol 3350 Powder 17 GM Packet PO SCH (07:35)
[2020-06-26] MEDS: BUDESONIDE INH SCH ×2 (07:36→19:44)
[2020-06-26] MEDS: FORMOTEROL INH SCH ×2 (07:36→19:44)
[2020-06-26] MEDS: Insulin NPH HUM/REG Insulin HM 100 UNIT/ML 3 ML Vial SQ SCH ×2 (07:43→17:15)
[2020-06-26] MEDS: Insulin Lispro 100 Units/ML 3 ML Vial SUBCUT SCH ×4 (07:43→20:32)
[2020-06-26] MEDS ORDERED: fentaNYL 25 MCG/HR Transdermal Patch TRDERM SCH (08:00)
[2020-06-26] MEDS: Cyclobenzaprine 10 MG Tab PO PRN (13:32)
[2020-06-26] MEDS: Nitrofurantoin Monohydrate/Macrocrystalline 100 MG Cap PO SCH (17:14)
[2020-06-26] MEDS: Levofloxacin/Dextrose 5%-Water 500 MG in Premix Bag 1 BAG IV SCH (19:36)
[2020-06-26] MEDS: Simvastatin 40 MG Tab PO SCH (19:40)
[2020-06-27] MEDS: Cyclobenzaprine 10 MG Tab PO PRN (05:07)
[2020-06-27] MEDS: Acetaminophen/HYDROcodone 325-5 MG Tab PO PRN (06:12)
[2020-06-27] MEDS: Apixaban 5 MG Tab PO SCH (09:19)
[2020-06-27] MEDS: Metoprolol Tartrate 25 MG Tab PO SCH (09:19)
[2020-06-27] MEDS: Furosemide 40 MG Tab PO SCH (09:20)
[2020-06-27] MEDS: Potassium Chloride 10 MEQ Tab.ER PO SCH (09:20)
[2020-06-27] MEDS: Polyethylene Glycol 3350 Powder 17 GM Packet PO SCH (09:21)
[2020-06-27] MEDS: FORMOTEROL INH SCH (09:22)
[2020-06-27] MEDS: BUDESONIDE INH SCH (09:22)
[2020-06-27] MEDS: Insulin Lispro 100 Units/ML 3 ML Vial SUBCUT SCH (09:22)
[2020-06-27] MEDS: Insulin NPH HUM/REG Insulin HM 100 UNIT/ML 3 ML Vial SQ SCH (09:23)
[2020-06-27 09:25] VITALS: BP 112/62
--- NOTE | 2020-06-27 09:58 | PCM.DCSUM1 ---
Discharge Summary - Hospital Course Free Text/Narrative:: Patient presented to be seen due to a syncopal episode. Was found to have a low potassium of 2.7. Was admitted for potassium replacement. During acute stay, patient developed intractable back pain. CT scan was done with no suspicious fractures but suggested to proceed with MRI. Had CT scan of head de to fall, was negative for acute changes. Patient also developed cough, chest xray was done. Did show developing infiltrate so was started on IV Levaquin. Was started on oral pain meds and Fentanyl patch. Transferred to swing bed for ongoing pain control, IV antibiotics and MRI. Diagnosis: Stroke: No Modified Dawes Scale: No Symptoms at All Modified Dawes Scale Score: 0 - Discharge Data Discharge Date: 06/27/20 Discharge Disposition: DC/Tfer to SNF 03 Condition: Fair - Referral to Home Health Primary Care Physician: Siddharth Anna MD - Discharge Diagnosis/Problem(s) (1) Intractable back pain SNOMED Code(s): 393157175 ICD Code: M54.9 - DORSALGIA, UNSPECIFIED Status: Acute Priority: High - Patient Summary/Data Consults: Consultations 06/24/20 11:13 PT Evaluation and Treatment [CONS] Routine PT Evaluation and Treatment [CONS] Routine Hospital Course: Patient is stable this am. Does continue to have low back pain, had MRI this am. No results available yet at this time. Is ambulating with walker. Pain covered with Fentanyl patch. Minimal cough. Lung sounds are clear, diminished. Covered with IV Levaquin. Patient expressed difficulty caring for her self. Will transfer to [facility] for ongoing care. - Patient Instructions Diet: Diabetic Diet Activity: As Tolerated - Discharge Plan *PRESCRIPTION DRUG MONITORING PROGRAM REVIEWED*: No *COPY OF PRESCRIPTION DRUG MONITORING REPORT IN PATIENT CHARLEY: No Prescriptions/Med Rec: fentaNYL [Duragesic] 25 mcg TRDERM Q72H #10 patch Insulin NPH Hum/Reg Insulin Hm [Humulin 70-30] 40 unit SQ DAILY #30 vial Insulin NPH Hum/Reg Insulin Hm [Humulin 70-30] 20 unit SQ WITHDINNER #30 vial Levofloxacin [Levaquin] 500 mg PO DAILY #7 tablet polyethylene glycoL 3350 [MiraLAX] 17 gm PO DAILY #30 packet Acetaminophen/HYDROcodone [[place] 325-5 MG] 1 tab PO Q4H PRN #30 tablet PRN Reason: Pain Home Medications: Home Meds Budesonide/Formoterol [Symbicort 160-4.5 MCG] 2 puff INH BID 10/28/16 [History] Calcium Carbonate [Calcium] 600 mg PO DAILY 10/28/16 [History] Magnesium 500 mg PO BEDTIME 10/28/16 [History] Furosemide 40 mg PO DAILY 02/01/17 [History] Apixaban [Eliquis] 5 mg PO BID 02/24/18 [History] Denosumab [Prolia] 60 mg SQ Q6M 04/06/19 [History] Albuterol [Ventolin HFA] 2 puff INH QID PRN 07/13/19 [History] Rosuvastatin Calcium 20 mg PO BEDTIME 07/13/19 [History] Cranberry Fruit Extract [Cranberry] 300 mg PO DAILY 05/30/20 [History] Echinacea 380 mg PO DAILY 05/30/20 [History] Multivitamin [Multivitamins] 1 tab PO BEDTIME 05/30/20 [History] Potassium Chloride [Klor-Con 10] 10 meq PO DAILY 05/30/20 [History] nitrofurantoin macrocrystaL [Nitrofurantoin] 100 mg PO BEDTIME 05/30/20 [History] Metoprolol Tartrate [Lopressor] 12.5 mg PO BID 06/18/20 [History] Acetaminophen/HYDROcodone [[place] 325-5 MG] 1 tab PO Q4H PRN #30 tablet 06/27/20 [Rx] Insulin NPH Hum/Reg Insulin Hm [Humulin 70-30] 20 unit SQ WITHDINNER #30 vial 06/27/20 [Rx] Insulin NPH Hum/Reg Insulin Hm [Humulin 70-30] 40 unit SQ DAILY #30 vial 06/27/20 [Rx] Levofloxacin [Levaquin] 500 mg PO DAILY #7 tablet 06/27/20 [Rx] fentaNYL [Duragesic] 25 mcg TRDERM Q72H #10 patch 06/27/20 [Rx] polyethylene glycoL 3350 [MiraLAX] 17 gm PO DAILY #30 packet 06/27/20 [Rx] - Discharge Summary/Plan Comment DC Time >30 min.: No Discharge Summary/Plan Comment: Transfer to [facility]. Time with patient 15 minutes Time for transfer orders 15 minutes Time for documentation 10 minutes - General Info Date of Service: 06/27/20 Admission Dx/Problem (Free Text: Intractable Back Pain Functional Status: Reports: Pain Controlled, Tolerating Diet, Ambulating - Review of Systems General: Reports: Weakness, Fatigue HEENT: Reports: No Symptoms Pulmonary: Denies: Shortness of Breath, Cough Cardiovascular: Reports: No Symptoms Gastrointestinal: Reports: Constipation. Denies: Abdominal Pain, Nausea, Vomiting Genitourinary: Reports: No Symptoms Musculoskeletal: Reports: Back Pain Skin: Reports: No Symptoms Neurological: Reports: Weakness - Patient Data Vitals - Most Recent: Last Vital Signs Temp 99.2 F 06/26/20 19:51 Pulse 93 06/27/20 09:19 Resp 20 06/26/20 19:51 BP 112/62 06/27/20 09:19 Pulse Ox 93 L 06/26/20 19:51 Weight - Most Recent: 157 lb Lab Results - Last 24 hrs: Laboratory Results - last 24 hr 06/26/20 06/26/20 06/26/20 Range/Units 11:36 17:17 20:31 POC Glucose 204 H 203 H 192 H (75-105) mg/dl 06/27/20 Range/Units 08:19 POC Glucose 137 H (75-105) mg/dl Med Orders - Current: Current Medications Acetaminophen (Tylenol Extra Strength) 1,000 mg PO Q6H PRN PRN Reason: Pain Hydrocodone Bitart/Acetaminophen ([place] 325-5 Mg) 1 tab PO Q4H PRN PRN Reason: Pain Last Admin: 06/27/20 06:12 Dose: 1 tab Documented by: Albuterol (Ventolin Hfa) 0 gm INH QID PRN PRN Reason: Shortness of Breath Apixaban (Eliquis) 5 mg PO BID [facility] Last Admin: 06/27/20 09:19 Dose: 5 mg Documented by: Cyclobenzaprine HCl (Flexeril) 10 mg PO TID PRN PRN Reason: Muscle Spasm Last Admin: 06/27/20 05:07 Dose: 10 mg Documented by: Fentanyl (Duragesic) 25 mcg TRDERM Q72H [facility] Last Admin: 06/26/20 07:38 Dose: 25 mcg Documented by: Furosemide (Lasix) 40 mg PO DAILY [facility] Last Admin: 06/27/20 09:20 Dose: 40 mg Documented by: Guaifenesin/Phenylephrine HCl (Robitussin Dm) 5 ml PO Q4H PRN PRN Reason: Cough Levofloxacin/Dextrose 500 mg/ (Premix) 100 mls @ 100 mls/hr IV Q24H [facility] Last Admin: 06/26/20 19:36 Dose: 100 mls/hr Documented by: Insulin Human Lispro (Humalog) 0 unit SUBCUT 0800,1200,1730,2100 [facility]; Protocol Last Admin: 06/27/20 09:22 Dose: Not Given Documented by: Insulin NPH Beef/Pork (Humulin 70-30) 40 unit SQ DAILY [facility] Last Admin: 06/27/20 09:23 Dose: 40 unit Documented by: Insulin NPH Beef/Pork (Humulin 70-30) 20 unit SQ WITHDINNER [facility] Last Admin: 06/26/20 17:15 Dose: 20 unit Documented by: Magnesium Oxide (Magnesium Oxide) 500 mg PO BEDTIME [facility] Last Admin: 06/26/20 19:40 Dose: 500 mg Documented by: Metoprolol Tartrate (Lopressor) 12.5 mg PO BID [facility] Last Admin: 06/27/20 09:19 Dose: 12.5 mg Documented by: Nitrofurantoin Macrocrystals (Macrobid) 100 mg PO WITHDINNER [facility] Last Admin: 06/26/20 17:14 Dose: 100 mg Documented by: Budesonide/Formoterol ( Symbicort) 160/4.5 Mcg 0 puff INH BID [facility] Last Admin: 06/27/20 09:22 Dose: 2 puff Documented by: Polyethylene Glycol (Miralax) 17 gm PO DAILY [facility] Last Admin: 06/27/20 09:21 Dose: 17 gm Documented by: Potassium Chloride (Klor-Con 10) 10 meq PO DAILY [facility] Last Admin: 06/27/20 09:20 Dose: 10 meq Documented by: Simvastatin (Zocor) 40 mg PO BEDTIME [facility] Last Admin: 06/26/20 19:40 Dose: 40 mg Documented by: Sodium Chloride (Saline Flush) 10 ml FLUSH ASDIRECTED PRN PRN Reason: Keep Vein Open - Exam General: Reports: Alert, Oriented HEENT: Reports: Mucous Membr. Moist/Floral Neck: Reports: Supple Lungs: Reports: Clear to Auscultation, Normal Respiratory Effort Cardiovascular: Reports: Irregular Rhythm GI/Abdominal Exam: Normal Bowel Sounds, Soft, Non-Tender Extremities: Normal Inspection, No Pedal Edema Skin: Reports: Warm, Dry Neurological: Reports: No New Focal Deficit
[2020-06-27 10:06] VITALS: PULSE 101
== END 2020-06-27 10:33 | DRG 552 ==
LOC: UNDOADMIN 10:38 → CC.MS 10:38
PROVIDERS: ADMIT Family Medicine; ATTEND Family Medicine
DX: M54.6 Pain in thoracic spine (principal); I48.20 Chronic atrial fibrillation, unspecified; E87.6 Hypokalemia; E11.9 Type 2 diabetes mellitus without complications; Z79.899 Other long term (current) drug therapy
CPT/HCPCS: 36415; 72146; 80048; 82962; 85025; 86140; 94640; 97110-GP; 97530-GP; A9270-GY; J1956